=== PATIENT | male | born 1970 | race Caucasian/White ===

== ENCOUNTER → 2016-09-21 | Outpatient (CLI) | payer SELFPAY ==
[2016-01-02 19:11] VITALS: BP 150/85
--- NOTE | 2016-09-21 14:25 | CT ---
HISTORY: Headache Study: CT brain without contrast Comparison: None Technique: Multiple axial images of the brain were obtained from the skull base to the vertex without administr ation of IV contrast. Coronal and sagittal reformats were performed. Dose reduction procedures were used with MA/kv adjusted for body size. Findings: No acute intraparenchymal hemorrhage or mass can be identified. No extra-axial fluid collections ar e seen. No alteration in the attenuation of the brain parenchyma can be identified to suggest acute or subacute ischemic change. The ventricular system is symmetric and nondilated. The extracranial structures are grossly unremarkable. the calvarium is intact. IMPRESSION: No significant intracranial abnormality identified Reported By:
== END ==
LOC: RAD 13:45
PROVIDERS: ATTEND Neurological Surgery
DX: R41.81 Age-related cognitive decline (principal)
CPT/HCPCS: 70450

== ENCOUNTER 2020-06-14 09:28 | Inpatient (IN) ==
--- NOTE | 2020-06-14 09:38 | DR.GENAD ---
HPI Time Seen Time Seen by Provider: 06/14/20 09:37 PCP Primary Care Physician: HIMANSHU HPI Comment HPI Comment: PATIENT IS 49YR OLD MALE IN ER WITH GENERALIZED WEAKNESS, FREQUENT FALLS AND FATIGUE. DENIES NAUSEA, VOMITING OR DIARRHEA. HAVE SLIGHT CONGESTION, COUGH AND SOB. NO FEVER OR DYSURIA. GENERALIZED BODYACHES TODAY. Complaint/Symptoms Chief Complaint Doctors Comments: GENERALIZED WEAKNESS AND FREQUENT FALLS. Chief Complaint:: PT CC/O WEAKNESS, INCREASED FALLING, AND POSSIBLE DEHYDRATION. PT STATES HE HAS A HISTORY OF PARKINSONS AND HE HAS BEEN FALLING MORE [place] QUENTLY. COVID-19 Coronavirus risk:travel/contact w/high risk person: No Has patient experienced Coronavirus symptoms: No Nurses notes reviewed Nurses Notes Review: Yes Source History Provided: Patient and EMS Mode of Arrival Mode of Arrival: EMS Timing Onset of Chief Complaint: 06/13/20 Came on: Suddenly Duration Duration: Constant Duration: Days Modifying Factors Worsens:: EXERTIONS Improves:: REST. Associated Signs and Symptoms Associated Signs and Symptoms: WEAHNESS Other History Other History: HISTORY PARKINSONS DISEASE. PMH PMH Past Medical History: Yes Past Medical History: Hypertension Past Medical History Comment: PARKINSON'S Past Surgical History: Yes Surgical History: Tonsillectomy Family History History of Family Medical Conditions: Yes Family Medical History: Cancer and Hypertension Social History Does any household member use tobacco: No Alcohol Use: None Do you use any recreational Drugs:: No Lives With: Family Lives Where: Home Travel Risk Coronavirus risk:travel/contact w/high risk person: No Has patient experienced Coronavirus symptoms: No Infectious screening In the last 2 months have you had wt loss of >10#?: NO Have you had fever, night sweats or hemotysis?: No Have you traveled outside the country in the last 6 months?: No Isolation: Standard ROS Review of Systems Constitutional: See HPI, Weakness and Fatigue; negative Fever Eyes: No Symptoms Reported and See HPI ENTM: See HPI and Nose Congestion; negative Nose Discharge Respiratoy: No Symptoms Reported, See HPI, Moist Cough and Short of Breath (ON EXERTION.) Cardiovascular: No Symptoms Reported and See HPI; negative Chest Pain, Edema and Palpitations Gastrointestinal/Abdominal: See HPI and Other; negative Constipation, Diarrhea and Nausea Genitourinary: See HPI and Other (DECREASE URINATION.); negative Dysuria, Frequency and Hematuria Neurological: See HPI and Weakness; negative Headache and Dizziness Musculoskeletal: No Symptoms Reported and See HPI; negative Back Pain and Muscle Pain Integumentary: No Symptoms Reported and See HPI; negative Change in Color, Rash and Juandice Hematologic/Lymphatic: No Symptoms Reported and See HPI; negative Easy Bruising and Swollen Glands Endocrine: No Symptoms Reported and See HPI; negative Increased Thirst and Increased Urine (DECREASE URINATION.) Psychiatric: No Symptoms Reported and See HPI All Other Systems: Reviewed and Negative PE Vital Signs Vitals: Temperature 98.7 F Pulse Rate 87 Respiratory Rate 20 Blood Pressure 134/67 O2 Sat by Pulse Oximetry 97 General Limitations: Physical Limitation (PARKINSONS DISEASE.) General Appearance: Alert and In Distress (ON EXERTION.) Head Head Exam: Normal Inspection, Atraumatic and Normocephalic Eyes Eye exam: Normal Appearance and PERRL ENT ENT Exam: Normal Exam, Normal Oropharynx, Normal External Ear Exam and TM's Normal Bilaterally External Ear Exam: Normal External Inspection; negative Mastoid Tenderness TM/Canal Exam: Bilateral: Normal Nose Exam: Normal Nose Exam Mouth Exam: Normal Inspection; negative Lip Swelling and Tongue Swelling Throat Exam: Normal Inspection; negative Tonsillar Erythema, Tonsillomegaly and Tonsillar Exudate Neck Neck Exam: Normal Inspection and Trachea Midline; negative Tenderness and Lymphadenopathy Chest Chest Inspection: Normal Inspection and Symmetric Chest Wall Rise; negative Tenderness Respiratory Respiratory Exam: Normal Lung Sounds Bilat and Respiratory Distress; negative Accessory Muscle Use and Chest Wall Tenderness Respiratory Exam: Bilateral: Rhonchi and Lower: Rhonchi Cardiovascular Cardiovascular Exam: Regular Rate, Normal Rhythm and Normal Heart Sounds; negative Systolic Murmur and Diastolic Murmur Abdominal Exam Abdominal Exam: Normal Inspection, Normal Bowel Sounds and Soft; negative Tenderness Extremities Extremities Exam: Normal Inspection and Normal Capillary Refill; negative Tenderness and Calf Tenderness Back Back Exam: Normal Inspection; negative (R) CVA Tenderness and (L) CVA Tenderness Neurologic Neurological Exam: Alert, Oriented X3 and Other (TREMORS DUE TO PARKINSONS DISEASE.); negative Motor Sensory Deficit Psychiatric Psychiatric Exam: Normal Affect and Anxious Skin Skin Exam: Dry MDM Additional Information Additional Information Obtained From: Old Records and Family Differential Diagnosis Differential Diagnosis: GENERALIZED WEAKNESS, DEHYDRATION, PNEUMONIA, UTI, FREQUENT FALLS. COURSE Treatment Treatment: SEE ORDERS. Consultation Consultation Comments: DISCUSSED PATIENT WITH DR. CUELLAR. HE WILL ADMIT PATIENT. Education/Counseling Education/Counseling: Patient Educated On: Diagnosis ROR Labs Reviewed Laboratory Results Reviewed?: Yes Result Diagrams: 06/21/20 05:43 06/21/20 05:43 Laboratory: WBC 16.1 X10^3/uL (3.6-10.0) H 06/14/20 09:48 RBC 5.21 X10^6/uL (4.7-6.0) 06/14/20 09:48 Hgb 15.6 g/dL (13.5-18.0) 06/14/20 09:48 Hct 46.9 % (42.0-54.0) 06/14/20 09:48 MCV 90.1 fL (80.0-100.0) 06/14/20 09:48 MCH 30.0 pg (27.0-34.0) 06/14/20 09:48 MCHC 33.3 g/dL (33.0-35.0) 06/14/20 09:48 RDW 14.1 % (11.6-16.5) 06/14/20 09:48 Plt Count 249 X10^3/uL (150.0-450.0) 06/14/20 09:48 MPV 9.1 fL (7.4-11.0) 06/14/20 09:48 Neut % (Auto) 89.6 % (42.0-75.0) H 06/14/20 09:48 Lymph % (Auto) 4.7 % (21.0-51.0) L 06/14/20 09:48 Rich % (Auto) 5.4 % (0.0-13.0) 06/14/20 09:48 Eos % (Auto) 0.0 % (0.9-2.9) L 06/14/20 09:48 Baso % (Auto) 0.3 % (0.2-1.0) 06/14/20 09:48 Neut # (Auto) 14.4 x10^3/uL (2.2-4.8) H 06/14/20 09:48 Lymph # (Auto) 0.7 X10^3/uL (1.3-2.9) L 06/14/20 09:48 Rich # (Auto) 0.9 x10^3/uL (0.3-0.8) H 06/14/20 09:48 Eos # (Auto) 0.0 x10^3/uL (0.0-0.2) 06/14/20 09:48 Baso # (Auto) 0.1 X10^3/uL (0.0-0.1) 06/14/20 09:48 Absolute Nucleated RBC 0.1 /100WBC 06/14/20 09:48 Sodium 142 mmol/L (136-145) 06/14/20 09:48 Corrected Sodium TNP 06/14/20 09:48 Potassium 3.2 mmol/L (3.5-5.1) L 06/14/20 09:48 Chloride 105 mmol/L (98-107) 06/14/20 09:48 Carbon Dioxide 23.0 mmol/L (21-32) 06/14/20 09:48 BUN 23 mg/dL (7-18) H 06/14/20 09:48 Creatinine 0.87 mg/dL (0.70-1.30) 06/14/20 09:48 Est GFR (MDRD) Af Amer > 60 (>60) 06/14/20 09:48 Est GFR (MDRD) Non-Af > 60 (>60) 06/14/20 09:48 Glucose 98 mg/dL (65-99) 06/14/20 09:48 Calcium 9.2 mg/dL (8.5-10.1) 06/14/20 09:48 Corrected Calcium TNP 06/14/20 09:48 Total Bilirubin 1.00 mg/dL (0.2-1.0) 06/14/20 09:48 AST 64 Units/L (15-37) H 06/14/20 09:48 ALT 14 Units/L (12-78) 06/14/20 09:48 Alkaline Phosphatase 111 Units/L (46-116) 06/14/20 09:48 Creatine Kinase 2465 Units/L (39-308) H 06/14/20 09:48 CK-MB (CK-2) 10.4 ng/mL (0-4.0) H* 06/14/20 09:48 CK/CKMB % Calc 0.4 % (<4) 06/14/20 09:48 Troponin I 0.06 ng/mL (0-1.5) 06/14/20 09:48 B-Natriuretic Peptide 50.7 pg/mL (0-79) 06/14/20 09:48 Total Protein 7.3 g/dL (6.4-8.2) 06/14/20 09:48 Albumin 4.0 g/dL (3.4-5.0) 06/14/20 09:48 Globulin 3.3 g/dL (2.5-4.5) 06/14/20 09:48 Albumin/Globulin Ratio 1.2 Ratio (1.1-2.1) 06/14/20 09:48 Specimen Type Clean catch urine 06/14/20 12:16 Urine Color Brown (YELLOW) 06/14/20 12:16 Urine Appearance Clear (CLEAR) 06/14/20 12:16 Urine pH 6.0 (5.0 - 8.0) 06/14/20 12:16 Ur Specific [place] 1.025 (1.000-1.030) 06/14/20 12:16 Urine Protein 2+ (NEGATIVE) 06/14/20 12:16 Urine Glucose (UA) Negative (NEGATIVE) 06/14/20 12:16 Urine Ketones 4+ (NEGATIVE) 06/14/20 12:16 Urine Occult Blood 1+ (NEGATIVE) 06/14/20 12:16 Urine Nitrite Negative (NEGATIVE) 06/14/20 12:16 Urine Bilirubin 1+ (NEGATIVE) 06/14/20 12:16 Urine Urobilinogen 1+ (NORMAL) 06/14/20 12:16 Ur Leukocyte Esterase 1+ (NEGATIVE) 06/14/20 12:16 Urine RBC 10-20 /HPF (0-3) A 06/14/20 12:16 Urine WBC 3-5 /HPF (0-5) 06/14/20 12:16 Ur Squamous Epith Cells Few /HPF (NEGATIVE) 06/14/20 12:16 Amorphous Sediment 1+ /HPF (NEGATIVE) 06/14/20 12:16 Urine Bacteria Negative /HPF (NEGATIVE) 06/14/20 12:16 Hyaline Casts Few /LPF (NEGATIVE) 06/14/20 12:16 Urine Mucus Many /HPF (NEGATIVE) 06/14/20 12:16 Ur Culture Indicated? No/not indicated 06/14/20 12:16 SARS CoV-2 RNA Rapid MOISES Negative (NEGATIVE) 06/14/20 13:24 XRAY XRAY Interpreted by: Radiologist (REPORT NOTED AND DISCUSSED WITH PATIENT.) and Self EKG Rate: 86 [place]: Normal Rhythm: NSR Block: None Hypertrophy: LAE ST: Nonsp Opioid Opioid Risk Tool Age (Deng box if 16-45): No History of Preadolescent Sexual Abuse: No Total: 0 Total Score Risk Category: Low Risk Copyright: Liz predicting aberrant behaviors Diagnosis Discharge Problem: Generalized weakness, Acute dehydration Rhabdomyolysis Qualifiers: Rhabdomyolysis type: non-traumatic Qualified Code(s): M62.82 - Rhabdomyolysis Instructions Forms: Precautions for COVID19 Patient Portal Social Distancing
[2020-06-14 10:18] LABS: BASOPHILS # (AUTO) 0.1 X10^3/uL (0.0-0.1); BASOPHILS % (AUTO) 0.3 % (0.2-1.0); HEMATOCRIT 46.9 % (42.0-54.0); HEMOGLOBIN 15.6 g/dL (13.5-18.0); LYMPHOCYTES # (AUTO) 0.7 X10^3/uL (1.3-2.9); LYMPHOCYTES % (AUTO) 4.7 % (21.0-51.0); MEAN CORPUSCULAR HGB CONC 33.3 g/dL (33.0-35.0); MEAN CORPUSCULAR VOLUME 90.1 fL (80.0-100.0); MEAN PLATELET VOLUME 9.1 fL (7.4-11.0); MONOCYTES # (AUTO) 0.9 x10^3/uL (0.3-0.8); MONOCYTES % (AUTO) 5.4 % (0.0-13.0); NEUTROPHILS # (AUTO) 14.4 x10^3/uL (2.2-4.8); NEUTROPHILS % (AUTO) 89.6 % (42.0-75.0); PLATELET COUNT 249 X10^3/uL (150.0-450.0); RED BLOOD COUNT 5.21 X10^6/uL (4.7-6.0); RED CELL DISTRIBUTION WIDTH 14.1 % (11.6-16.5); WHITE BLOOD COUNT 16.1 X10^3/uL (3.6-10.0)
--- NOTE | 2020-06-14 10:20 | RAD ---
CHEST, 1 VIEWHistory: PT C/O WEAKNESS, INCREASED FALLING, AND POSSIBLE DEHYDRATION. PT STATES HE HAS A HISTORY OF PARKINSONS AND HE HAS BEEN FALLING MORE FREQUENTLY.Comparison: NoneFindings: Cardiac silhouette is normal in size. No acute alveolar infiltrate or significant effusion is identified. No pneumothorax.Impression: No acute cardiopulmonary abnormality.Electronically signed by: DIEUDONNE OCONNELL (Jun 14, 2020 10:18:00)
[2020-06-14 10:33] LABS: BLOOD UREA NITROGEN 23 mg/dL (7-18); CALCIUM 9.2 mg/dL (8.5-10.1); CHLORIDE 105 mmol/L (98-107); CREATININE 0.87 mg/dL (0.70-1.30); SODIUM 142 mmol/L (136-145); TROPONIN I 0.06 ng/mL (0-1.5); eGFR NON BLACK RACES > 60 (>60)
[2020-06-14 11:13] LABS: ALANINE AMINOTRANSFERASE 14 Units/L (12-78); ALKALINE PHOSPHATASE 111 Units/L (46-116); ASPARTATE AMINO TRANSFERASE 64 Units/L (15-37); TOTAL PROTEIN 7.3 g/dL (6.4-8.2)
[2020-06-14 11:17] LABS: CKMB % 0.4 % (<4); CREATINE KINASE MB 10.4 ng/mL (0-4.0)
[2020-06-14] MEDS ORDERED: NS 1000 ML 1,000 ML IV ONE (11:21)
[2020-06-14] MEDS ORDERED: NS 1000 ML 1,000 ML ONE ×2 (11:21→14:47)
[2020-06-14 11:37] LABS: CREATINE KINASE 2465 Units/L (39-308)
[2020-06-14 12:29] LABS: BILIRUBIN,URINE 1+ (NEGATIVE); BLOOD/HEMOGLOBIN,URINE 1+ (NEGATIVE); GLUCOSE, URINE NEGATIVE (NEGATIVE); KETONES,URINE 4+ (NEGATIVE); LEUKOCYTE ESTERASE ,URINE 1+ (NEGATIVE); NITRITES,URINE NEGATIVE (NEGATIVE); PROTEIN,URINE 2+ (NEGATIVE); UROBILINOGEN,URINE 1+ (NORMAL)
[2020-06-14 12:34] LABS: APPEARANCE,URINE CLEAR (CLEAR); COLOR,URINE BROWN (YELLOW)
[2020-06-14 12:43] LABS: BACTERIA,URINE NEGATIVE /HPF (NEGATIVE); SQUAMOUS EPITHELIAL CELL,UR FEW /HPF (NEGATIVE)
[2020-06-14 12:44] LABS: AMORPHOUS SEDIMENT,UR 1+ /HPF (NEGATIVE); HYALINE CASTS, URINE FEW /LPF (NEGATIVE); MUCUS,URINE MANY /HPF (NEGATIVE)
[2020-06-14] MEDS ORDERED: ROCEPHIN 1 GRAM IV PREMIX 1 G/50 ML IV.SOLN. IV ONE (14:47)
[2020-06-14] MEDS ORDERED: LIORESAL PO PRN (14:57)
[2020-06-14] MEDS: NS 1000 ML 1,000 ML IV SCH ×2 (14:58→22:00)
[2020-06-14] MEDS: ROCEPHIN VIAL 1 GRAM 1 G in NS 100 ML IV + SPIKE MINIBAG* 100 ML IV SCH (14:58)
[2020-06-14] MEDS ORDERED: MAGNESIUM SULFATE 1 GRAM/100 mL PREMIX 1 GM/100 ML BAG IV PRN (15:02)
[2020-06-14] MEDS ORDERED: K-RIDER 10 MEQ/NS 100 ML 10 MEQ/100 ML BAG IV PRN (15:02)
[2020-06-14] MEDS ORDERED: POTASSIUM CHLORIDE LIQ 20 MEQ UDC PO PRN (15:02)
[2020-06-14] MEDS ORDERED: KLOR-CON PO PRN (15:02)
[2020-06-14] MEDS ORDERED: POTASSIUM CHL 60 MEQ/NS 0.45% 500 ML IV PRN (15:02)
[2020-06-14] MEDS ORDERED: MICRO K EXTEN CAP 10 MEQ PO PRN (15:02)
[2020-06-14] MEDS ORDERED: POTASSIUM CHL 40 MEQ/NS 0.45% 500 ML IV PRN (15:02)
[2020-06-14] MEDS: SINEMET CR 50/200 MG PO SCH ×2 (15:42→21:00)
[2020-06-14 16:08] LABS: TROPONIN I 0.08 ng/mL (0-1.5)
[2020-06-14 16:12] LABS: CKMB % 0.5 % (<4); CREATINE KINASE MB 10.5 ng/mL (0-4.0)
[2020-06-14 16:38] VITALS: BMI 34.4
[2020-06-14] MEDS: K-DUR TAB 20 MEQ PO PRN (16:43)
[2020-06-14] MEDS: LOPRESSOR TAB 25 MG PO SCH (20:33)
[2020-06-15] LABS: TROPONIN I 0.06 ng/mL (0-1.5)
[2020-06-15 00:12] LABS: CKMB % 0.4 % (<4); CREATINE KINASE MB 5.5 ng/mL (0-4.0)
[2020-06-15] MEDS: SINEMET CR 50/200 MG PO SCH ×3 (06:08→21:07)
[2020-06-15 06:17] LABS: BASOPHILS # (AUTO) 0.1 X10^3/uL (0.0-0.1); BASOPHILS % (AUTO) 0.7 % (0.2-1.0); EOSINOPHILS % (AUTO) 0.1 % (0.9-2.9); HEMATOCRIT 41.7 % (42.0-54.0); HEMOGLOBIN 13.8 g/dL (13.5-18.0); LYMPHOCYTES # (AUTO) 1.7 X10^3/uL (1.3-2.9); LYMPHOCYTES % (AUTO) 15.3 % (21.0-51.0); MEAN CORPUSCULAR HEMOGLOBIN 30.2 pg (27.0-34.0); MEAN CORPUSCULAR HGB CONC 33.1 g/dL (33.0-35.0); MEAN CORPUSCULAR VOLUME 91.2 fL (80.0-100.0); MEAN PLATELET VOLUME 9.1 fL (7.4-11.0); MONOCYTES # (AUTO) 0.9 x10^3/uL (0.3-0.8); MONOCYTES % (AUTO) 8.1 % (0.0-13.0); NEUTROPHILS # (AUTO) 8.4 x10^3/uL (2.2-4.8); NEUTROPHILS % (AUTO) 75.8 % (42.0-75.0); PLATELET COUNT 222 X10^3/uL (150.0-450.0); RED BLOOD COUNT 4.57 X10^6/uL (4.7-6.0); RED CELL DISTRIBUTION WIDTH 14.1 % (11.6-16.5); WHITE BLOOD COUNT 11.1 X10^3/uL (3.6-10.0)
[2020-06-15 06:47] LABS: ALANINE AMINOTRANSFERASE 15 Units/L (12-78); ALBUMIN 3.2 g/dL (3.4-5.0); ALKALINE PHOSPHATASE 93 Units/L (46-116); ASPARTATE AMINO TRANSFERASE 51 Units/L (15-37); BLOOD UREA NITROGEN 17 mg/dL (7-18); CALCIUM 8.5 mg/dL (8.5-10.1); CARBON DIOXIDE 25.7 mmol/L (21-32); CHLORIDE 108 mmol/L (98-107); COR CA(FOR HYPOALB) 9.1 mg/dL (8.5-10.1); CREATININE 0.77 mg/dL (0.70-1.30); SODIUM 143 mmol/L (136-145); TOTAL PROTEIN 6.1 g/dL (6.4-8.2); eGFR NON BLACK RACES > 60 (>60)
[2020-06-15] MEDS: ROCEPHIN VIAL 1 GRAM 1 G in NS 100 ML IV + SPIKE MINIBAG* 100 ML IV SCH (09:00)
[2020-06-15] MEDS: LOPRESSOR TAB 25 MG PO SCH ×2 (09:01→21:07)
[2020-06-15] MEDS: MOBIC TAB 15 MG PO SCH (09:01)
[2020-06-15] MEDS ORDERED: PERCOCET TAB 5/325 MG PO PRN (09:30)
[2020-06-15 10:27] LABS: CREATINE KINASE MB 3.9 ng/mL (0-4.0); TROPONIN I 0.03 ng/mL (0-1.5)
[2020-06-15 10:30] LABS: TOTAL PSA 0.77 ng/mL (0.13-4.0)
[2020-06-15 10:41] LABS: CKMB % 0.3 % (<4)
[2020-06-15] MEDS: MILK OF MAGNESIA PO SCH ×3 (10:45→17:25)
--- NOTE | 2020-06-15 12:28 | CT ---
HISTORYDDD, R/O SPINE CANAL STENOSISSTUDYCT LUMBAR SPINE without IV contrastCOMPARISONCT 12/1959TECHNIQUEMultiple axial images of the lumbar spine were obtained from the thoracolumbar junction to the sacrum without the administration of IV contrast. Sagittal and coronal reformats were performed and reviewed. Dose reduction techniques including Automated Exposure Control (AEC) and adjustment of mA and kV were utilized.FINDINGSThere is no scoliosis. No spondylolisthesis or pars defect.No significant stenosis at L1-2. At L2-3 there is left central disc protrusion that is new since prior study. This causes prominent left lateral recess stenosis and possible compression of the left L3 nerve root. Mild thecal sac effacement is seen with no significant neural foraminal stenosis.Mild posterior osteophytes and posterior element hypertrophy cause mild central canal and neural foraminal narrowing at L3-4. Calcified right central disc bulge at L4-5 is similar to prior study. This causes mild thecal sac effacement and moderate right lateral recess stenosis, unchanged.No significant stenosis is seen at L5-S1.No compression fracture.IMPRESSIONLeft central disc protrusion at L2-3 is new since prior study. This may compress the left L3 nerve root in the left lateral recess. Mild thecal sac effacement is seen.Calcified right central disc bulge at L4-5 is unchanged from prior study. It causes mild thecal sac effacement and moderate right lateral recess stenosis.Electronically signed by: Cj Beltrán (Jun 15, 2020 12:26:21)
--- NOTE | 2020-06-15 12:33 | CT ---
HISTORYELEVATED D-DIMER (1.99)Dyspnea and shortness of breath].Study: CT angiogram of the chest with contrast, using the CT PE protocol. For this CT pulmonary embolism angiographic protocol, 3D reformats / maximum intensity projections (MIPs) of the pulmonary arterial circulation and pulmonary arteries was performed.Comparison: No recent priors.Technique: Multiple CT angiographic axial images of the chest were obtained from the thoracic inlet to the upper abdomen after the administration of IV contrast. For this CT pulmonary embolism angiographic protocol, 3D reformats / maximum intensity projections (MIPs) of the pulmonary arterial circulation and pulmonary arteries was performed.FINDINGS:The thoracic inlet is [unremarkable]. The mediastinum [does not demonstrate pathological lymphadenopathy]. There is no pericardial effusion observed. The thoracic aorta is normal in its contour without evidence for aneurysmal dilatation or acute dissection. The central pulmonary arterial system demonstrates several small intra-arterial filling defects are seen within the subsegmental pulmonary arterial branches to the left lower lobe, compatible with several small subsegmental left lower lobe pulmonary emboli. No central or saddle pulmonary embolism is seen, however. Lingular and right upper lobe subsegmental atelectasis is also noted. Evaluation of the lung parenchyma [fails to demonstrate focal consolidation or effusion]. [No pulmonary nodule or mass] is identified]. The bony thorax shows changes of thoracolumbar spinal DISH and spondylosis. The visualized portions of the upper abdomen [are without acute abnormality]. No other acute thoracic or cardiopulmonary abnormalities are identified on this chest CT exam.IMPRESSION:Several small intra-arterial filling defects are observed within the subsegmental pulmonary arterial branches within the left lower lobe, most compatible with several small subsegmental left lower lobe pulmonary emboli, given the medical history. No central or saddle pulmonary embolism is seen, however.Follow-up with bilateral lower extremity DVT sonography is also suggested.Lingular and right upper lobe subsegmental atelectasis is also noted.No other acute cardiopulmonary process is seen.Electronically signed by: SHILA WILBURN III (Jun 15, 2020 12:31:16)
[2020-06-15] MEDS ORDERED: HEPARIN SODIUM INJ 5000 UNITS IVP ONE (13:12)
[2020-06-15 13:21] LABS: ABG HCO3 27.1 mmol/L (22-26)
[2020-06-15 13:22] LABS: ABG ALLEN TEST POS
--- NOTE | 2020-06-15 13:38 | DR.H&P ---
H&P - History & Physical for Day of: H&P Date: 06/14/20 - Chief Complaint Chief Complaint: "legs gave out and i fell. I could not get up for 4 hours". weakness, recent falls - History of Present Illness History of Present Illness: PT IS 49 WM ER ADMISSION WIT BROUGHT IN PER EMS STATING HE FELL EARLIER BECAUSE "LEGS GAVE OUT" AND PT LAID IN FLOOR FOR 4 HRS THEN EMS DISPATCHED FOR 2ND TIME FOR SAME COMPLAINT. PT THEN TRANSPORTED TO ER. PT CO GUNDERSON THATS WORSE FOR LAST FEW DAYS TO WEEK AND DARK "TEA COLORED URINE" DENIES ANY CHEST PAIN OR GI ISSUES. PT DENIES HISTORY OF COVID, DM OR CAD. PT HAS PMH OF PARKINSON, C SPINE DDD, LSPINE DDD. PT ADMITTED FOR TREATMENT OF ACUTE ILLNESS - Past Medical History Past Medical History: Arthritis, Hypertension Additional Medical History: PARKINSON - Past Surgical History Surgical History: Ortho Surgery, Tonsillectomy, Other - Family History Family Medical History: Cancer, [place], Heart Failure, Hypertension - Social History Does patient currently use any type of tobacco product: No Have you used tobacco products in the last 12 months: No Type of Tobacco Use: None Does any household member use tobacco: No Alcohol Use: None Drug Use: None - Medications Home Medications: No Known Drug Allergies Allergy (Verified 06/14/20 09:53) CONTINUE taking the following medications baclofen 5 - 10 mg PO TID PRN 06/14/20 [History] carbidopa-levodopa 1 tab PO .5XD 06/14/20 [History] carbidopa-levodopa 1 tab PO TID 06/14/20 [History] meloxicam 15 mg PO DAILY 06/14/20 [History] metoprolol tartrate 25 mg PO BID 06/14/20 [History] - Review of Systems Constitutional: Weakness ENT: No Symptoms Reported Respiratory: SOB with Excertion Cardiovascular: Edema. denies: Chest Pain Gastrointestinal: Constipation Genitourinary: No Symptoms Reported Musculoskeletal: Back Pain Skin: No Symptoms Reported Neurological: Weakness - Physical Exam Vital Signs: Temperature 97.5 F Pulse Rate [Left Brachial] 64 Pulse Rate 87 Respiratory Rate 24 Blood Pressure [Right Arm] 193/91 Blood Pressure [Left Arm] 138/68 Blood Pressure 127/70 O2 Sat by Pulse Oximetry 96 Oriented: Normal Eyes: Normal Ear: Normal Nose: Normal Throat: Normal Respiratory: RLL Diminished, LLL Diminished Cardiovascular: Normal, Edema : Normal Auscultation: Bowel Sounds: Normal Palpation: Normal Tenderness: Normal Skin: Decreased Turgur Musculoskeletal: Back:Thoracic, Back:Lumbar, Motor Deficit Mood Description: Calm Speech Pattern: Clear, Appropriate - Assessment/Plan (1) Rhabdomyolysis Qualifiers: Rhabdomyolysis type: non-traumatic Qualified Code(s): M62.82 - Rhabdomyolysis Status: Acute Plan: ADMIT, IV HYDRATION. STRICT I&OS, CE AND EKG. VERIFY HOME MEDICATION. TELEMTRY, BP CONTROL. AM LABS (2) Parkinson disease Status: Acute (3) Acute dehydration Status: Acute - Allergies Allergies/Adverse Reactions: Allergies Allergy/AdvReac Type Severity Reaction Status Date / Time No Known Drug Allergies Allergy Verified 06/14/20 09:53
[2020-06-15] MEDS: NS 1000 ML 1,000 ML IV SCH ×2 (14:00→18:31)
--- NOTE | 2020-06-15 14:16 | VAS ---
HISTORYPOSITIVE PESTUDYLOWER EXT VENOUS, BILATERALCOMPARISONNoneTECHNIQUEMultiple adam scale and color flow Doppler images of the deep venous system were obtained of the right and left lower extremity.FINDINGSThe deep venous system of the right and left lower extremities were evaluated from the level of the common femoral vein through the popliteal vein. Normal color flow and augmentation can be observed in the left lower extremity.. In addition, normal compression is seen throughout the left deep venous system. The proximal greater saphenous vein is also patent on the left..Normal flow is seen in the right common femoral and proximal greater saphenous vein proximal mid and distal superficial femoral vein. There was however echogenic material with incomplete compression of the right popliteal vein and anterior tibial veinIMPRESSIONNegative for DVT in the left lower extremity but the exam was positive for partial thrombosis i.e. partially occlusive thrombus in the right distal popliteal and anterior tibial veins..Electronically signed by: REBEKAH SILVA (Jun 15, 2020 14:14:04)
[2020-06-15 14:37] LABS: ERYTHROCYTE SEDIMENTATION RATE 7 MM/HOUR (0-15)
[2020-06-15] MEDS: HEPARIN SODIUM IN D5W 25,000 UNITS/500 ML BAG IV PRN (15:15)
[2020-06-15 16:09] LABS: CREATINE KINASE MB 2.9 ng/mL (0-4.0); TROPONIN I 0.04 ng/mL (0-1.5)
[2020-06-15 16:24] LABS: CKMB % 0.2 % (<4)
[2020-06-15] MEDS: PERCOCET TAB 5/325 MG PO PRN (20:22)
[2020-06-15] MEDS: COLACE CAP 100 MG PO SCH (21:07)
[2020-06-15 21:33] LABS: CKMB % 0.2 % (<4); CREATINE KINASE MB 2.2 ng/mL (0-4.0); TROPONIN I 0.04 ng/mL (0-1.5)
[2020-06-15] MEDS ORDERED: HEPARIN SODIUM INJ 5000 UNITS ONE (21:39)
[2020-06-16] MEDS: NS 1000 ML 1,000 ML IV SCH ×4 (02:15→20:06)
[2020-06-16 05:11] LABS: BASOPHILS # (AUTO) 0.1 X10^3/uL (0.0-0.1); EOSINOPHILS % (AUTO) 0.6 % (0.9-2.9); HEMATOCRIT 41.6 % (42.0-54.0); HEMOGLOBIN 13.4 g/dL (13.5-18.0); LYMPHOCYTES # (AUTO) 1.4 X10^3/uL (1.3-2.9); LYMPHOCYTES % (AUTO) 15.9 % (21.0-51.0); MEAN CORPUSCULAR HEMOGLOBIN 29.4 pg (27.0-34.0); MEAN CORPUSCULAR HGB CONC 32.2 g/dL (33.0-35.0); MEAN CORPUSCULAR VOLUME 91.3 fL (80.0-100.0); MEAN PLATELET VOLUME 9.6 fL (7.4-11.0); MONOCYTES # (AUTO) 0.8 x10^3/uL (0.3-0.8); MONOCYTES % (AUTO) 8.7 % (0.0-13.0); NEUTROPHILS # (AUTO) 6.4 x10^3/uL (2.2-4.8); NEUTROPHILS % (AUTO) 73.8 % (42.0-75.0); PLATELET COUNT 201 X10^3/uL (150.0-450.0); RED BLOOD COUNT 4.56 X10^6/uL (4.7-6.0); RED CELL DISTRIBUTION WIDTH 14.3 % (11.6-16.5); WHITE BLOOD COUNT 8.7 X10^3/uL (3.6-10.0)
[2020-06-16] MEDS: SINEMET CR 50/200 MG PO SCH ×3 (05:21→21:05)
[2020-06-16 05:28] LABS: ALANINE AMINOTRANSFERASE 13 Units/L (12-78); ALBUMIN 2.9 g/dL (3.4-5.0); ALKALINE PHOSPHATASE 93 Units/L (46-116); ASPARTATE AMINO TRANSFERASE 39 Units/L (15-37); BLOOD UREA NITROGEN 13 mg/dL (7-18); CALCIUM 8.3 mg/dL (8.5-10.1); CARBON DIOXIDE 27.1 mmol/L (21-32); CHLORIDE 106 mmol/L (98-107); COR CA(FOR HYPOALB) 9.2 mg/dL (8.5-10.1); CREATININE 0.65 mg/dL (0.70-1.30); SODIUM 141 mmol/L (136-145); TOTAL PROTEIN 5.8 g/dL (6.4-8.2); eGFR NON BLACK RACES > 60 (>60)
[2020-06-16] MEDS: MOBIC TAB 15 MG PO SCH (08:39)
[2020-06-16] MEDS: LOPRESSOR TAB 25 MG PO SCH ×2 (08:39→20:06)
[2020-06-16] MEDS: ROCEPHIN VIAL 1 GRAM 1 G in NS 100 ML IV + SPIKE MINIBAG* 100 ML IV SCH (08:39)
[2020-06-16] MEDS ORDERED: HEPARIN SODIUM INJ 5000 UNITS IVP ONE (12:09)
[2020-06-16] MEDS: PERCOCET TAB 5/325 MG PO PRN (18:12)
[2020-06-16] MEDS: COLACE CAP 100 MG PO SCH (20:06)
[2020-06-16] MEDS: K-DUR TAB 20 MEQ PO PRN (20:07)
[2020-06-17] MEDS: HEPARIN SODIUM IN D5W 25,000 UNITS/500 ML BAG IV PRN (00:20)
[2020-06-17] MEDS: NS 1000 ML 1,000 ML IV SCH ×3 (03:42→18:02)
[2020-06-17] MEDS: SINEMET CR 50/200 MG PO SCH ×4 (05:08→20:38)
[2020-06-17] MEDS: PERCOCET TAB 5/325 MG PO PRN ×3 (05:08→20:39)
[2020-06-17 06:21] LABS: BASOPHILS # (AUTO) 0.1 X10^3/uL (0.0-0.1); BASOPHILS % (AUTO) 1.2 % (0.2-1.0); EOSINOPHILS # (AUTO) 0.1 x10^3/uL (0.0-0.2); EOSINOPHILS % (AUTO) 1.7 % (0.9-2.9); HEMATOCRIT 40.8 % (42.0-54.0); HEMOGLOBIN 13.8 g/dL (13.5-18.0); LYMPHOCYTES # (AUTO) 1.4 X10^3/uL (1.3-2.9); MEAN CORPUSCULAR HEMOGLOBIN 30.7 pg (27.0-34.0); MEAN CORPUSCULAR HGB CONC 33.9 g/dL (33.0-35.0); MEAN CORPUSCULAR VOLUME 90.5 fL (80.0-100.0); MEAN PLATELET VOLUME 9.6 fL (7.4-11.0); MONOCYTES # (AUTO) 0.7 x10^3/uL (0.3-0.8); MONOCYTES % (AUTO) 8.1 % (0.0-13.0); NEUTROPHILS # (AUTO) 5.8 x10^3/uL (2.2-4.8); PLATELET COUNT 213 X10^3/uL (150.0-450.0); RED BLOOD COUNT 4.51 X10^6/uL (4.7-6.0); RED CELL DISTRIBUTION WIDTH 14.5 % (11.6-16.5); WHITE BLOOD COUNT 8.1 X10^3/uL (3.6-10.0)
[2020-06-17 06:32] LABS: ALANINE AMINOTRANSFERASE 15 Units/L (12-78); ALBUMIN 3.1 g/dL (3.4-5.0); ALKALINE PHOSPHATASE 102 Units/L (46-116); ASPARTATE AMINO TRANSFERASE 30 Units/L (15-37); BLOOD UREA NITROGEN 11 mg/dL (7-18); CALCIUM 8.6 mg/dL (8.5-10.1); CARBON DIOXIDE 25.9 mmol/L (21-32); CHLORIDE 104 mmol/L (98-107); COR CA(FOR HYPOALB) 9.3 mg/dL (8.5-10.1); CREATININE 0.65 mg/dL (0.70-1.30); SODIUM 137 mmol/L (136-145); eGFR NON BLACK RACES > 60 (>60)
[2020-06-17 09:04] LABS: CKMB % 0.5 % (<4); CREATINE KINASE 270 Units/L (39-308); CREATINE KINASE MB 1.3 ng/mL (0-4.0); TROPONIN I < 0.02 ng/mL (0-1.5)
[2020-06-17] MEDS: ELIQUIS PO SCH ×2 (09:39→20:38)
[2020-06-17] MEDS: LOPRESSOR TAB 25 MG PO SCH (09:40)
[2020-06-17] MEDS: ROCEPHIN VIAL 1 GRAM 1 G in NS 100 ML IV + SPIKE MINIBAG* 100 ML IV SCH (09:41)
[2020-06-17] MEDS: MOBIC TAB 15 MG PO SCH (09:41)
[2020-06-17 09:50] LABS: ABG ALLEN TEST POS; ABG BASE EXCESS 1.6 mmol/L (-2.0-2.0); ABG HCO3 24.4 mmol/L (22-26)
[2020-06-17] MEDS: SOLU-Medrol 40 MG VIAL IVP SCH ×2 (14:17→21:34)
[2020-06-17] MEDS: COLACE CAP 100 MG PO SCH (20:38)
[2020-06-18] MEDS: NS 1000 ML 1,000 ML IV SCH ×4 (00:19→20:31)
[2020-06-18] MEDS: SINEMET CR 50/200 MG PO SCH ×2 (05:07→09:47)
[2020-06-18] MEDS: SOLU-Medrol 40 MG VIAL IVP SCH (05:07)
[2020-06-18 06:15] LABS: BASOPHILS % (AUTO) 0.6 % (0.2-1.0); EOSINOPHILS % (AUTO) 0.6 % (0.9-2.9); HEMATOCRIT 44.2 % (42.0-54.0); HEMOGLOBIN 14.7 g/dL (13.5-18.0); LYMPHOCYTES # (AUTO) 0.9 X10^3/uL (1.3-2.9); LYMPHOCYTES % (AUTO) 11.1 % (21.0-51.0); MEAN CORPUSCULAR HEMOGLOBIN 30.2 pg (27.0-34.0); MEAN CORPUSCULAR HGB CONC 33.2 g/dL (33.0-35.0); MEAN CORPUSCULAR VOLUME 90.9 fL (80.0-100.0); MEAN PLATELET VOLUME 9.3 fL (7.4-11.0); MONOCYTES # (AUTO) 0.2 x10^3/uL (0.3-0.8); MONOCYTES % (AUTO) 2.3 % (0.0-13.0); NEUTROPHILS # (AUTO) 6.6 x10^3/uL (2.2-4.8); NEUTROPHILS % (AUTO) 85.4 % (42.0-75.0); PLATELET COUNT 244 X10^3/uL (150.0-450.0); RED BLOOD COUNT 4.86 X10^6/uL (4.7-6.0); RED CELL DISTRIBUTION WIDTH 13.9 % (11.6-16.5); WHITE BLOOD COUNT 7.7 X10^3/uL (3.6-10.0)
[2020-06-18 06:25] LABS: ALANINE AMINOTRANSFERASE 14 Units/L (12-78); ALBUMIN 3.3 g/dL (3.4-5.0); ALKALINE PHOSPHATASE 112 Units/L (46-116); ASPARTATE AMINO TRANSFERASE 19 Units/L (15-37); BLOOD UREA NITROGEN 10 mg/dL (7-18); CALCIUM 9.1 mg/dL (8.5-10.1); CARBON DIOXIDE 25.5 mmol/L (21-32); CHLORIDE 102 mmol/L (98-107); COR CA(FOR HYPOALB) 9.7 mg/dL (8.5-10.1); COR NA(FOR HYPERGLY) 135 mmol/L (136-145); CREATININE 0.66 mg/dL (0.70-1.30); SODIUM 135 mmol/L (136-145); TOTAL PROTEIN 6.6 g/dL (6.4-8.2); eGFR NON BLACK RACES > 60 (>60)
[2020-06-18] MEDS: ROCEPHIN VIAL 1 GRAM 1 G in NS 100 ML IV + SPIKE MINIBAG* 100 ML IV SCH (09:46)
[2020-06-18] MEDS: MOBIC TAB 15 MG PO SCH (09:47)
[2020-06-18] MEDS: ELIQUIS PO SCH ×2 (09:47→20:34)
[2020-06-18] MEDS: PERCOCET TAB 5/325 MG PO PRN (11:34)
--- NOTE | 2020-06-18 11:50 | PCM.PROG ---
Progress Note Progress Note for Day of Date of Exam: 06/18/20 Subjective Subjective: Patient seen at bedside, no events overnight. Patient states his pain and stiffness has not been controlled. He states he sees Dr. Carlton for Parkinson's' and he was recently changed to a different dose of Sinemet which has not been working for him. He states he was taking 25/250 mg 5 times a day and that worked better. He is being treated for Right LE DVT and PE with Eliquis. Denies bleeding. He reports eating better. He did work with PT this AM and states he feels tired. He is currently on room air. Labs: Hgb 14.7 Na: 135 K: 3.9 BUN/Cr: 10/0.66 CK 270 Urine and Blood Cx neg Plan: continue PT/OT, patient likely needs rehab placement. Will switch to Sinemet 25/250 x5/daily. Continue pain control and muscle relaxer. Will DC Rocephin. Wean O2 as tolerated. Continue Eliquis. Monitor AM labs. Past Medical Family Social History Past Med/Fam/Surg Hx: No changes since H&P Allergies: Allergies No Known Drug Allergies Allergy (Verified 06/14/20 09:53) Review of Systems ROS: No change since H&P Vital Signs and I&O's Vital Signs: Temperature 98.6 F Pulse Rate [Left Brachial] 82 Pulse Rate 87 Respiratory Rate 20 Blood Pressure [Right Arm] 142/84 Blood Pressure [Left Arm] 138/68 Blood Pressure 127/70 O2 Sat by Pulse Oximetry 96 Intake and Output: Intake & Output 06/15/20 06/16/20 06/17/20 06/18/20 23:59 23:59 23:59 23:59 Intake Total 3570 / 3570 2395 / 2395 2656 / 2656 484 / 484 Output Total 550 / 550 1225 / 1225 1325 / 1325 Balance 3020 / 3020 1170 / 1170 1331 / 1331 484 / 484 Physical Exam Oriented: Normal Eyes: Normal Ear: Normal Nose: Normal Throat: Normal Respiratory: Generalized and Diminished Cardiovascular: Normal and Edema Auscultation: Bowel Sounds: Normal Tenderness: Normal Skin: Decreased Turgur Musculoskeletal: Back:Thoracic, Back:Lumbar and Motor Deficit Mood Description: Calm Speech Pattern: Clear and Appropriate Laboratory and Diagnostics Result Diagrams: 06/18/20 05:40 06/18/20 05:40 Labs: 06/15/20 22:17 Urine,Clean Catch Urine Culture - Final 06/15/20 13:28 Blood Blood Culture - Preliminary 06/15/20 13:05 Blood Blood Culture - Preliminary Laboratory WBC 7.7 X10^3/uL (3.6-10.0) 06/18/20 05:40 RBC 4.86 X10^6/uL (4.7-6.0) 06/18/20 05:40 Hgb 14.7 g/dL (13.5-18.0) 06/18/20 05:40 Hct 44.2 % (42.0-54.0) 06/18/20 05:40 MCV 90.9 fL (80.0-100.0) 06/18/20 05:40 MCH 30.2 pg (27.0-34.0) 06/18/20 05:40 MCHC 33.2 g/dL (33.0-35.0) 06/18/20 05:40 RDW 13.9 % (11.6-16.5) 06/18/20 05:40 Plt Count 244 X10^3/uL (150.0-450.0) 06/18/20 05:40 MPV 9.3 fL (7.4-11.0) 06/18/20 05:40 Neut % (Auto) 85.4 % (42.0-75.0) H 06/18/20 05:40 Lymph % (Auto) 11.1 % (21.0-51.0) L 06/18/20 05:40 Randall % (Auto) 2.3 % (0.0-13.0) 06/18/20 05:40 Eos % (Auto) 0.6 % (0.9-2.9) L 06/18/20 05:40 Baso % (Auto) 0.6 % (0.2-1.0) 06/18/20 05:40 Neut # (Auto) 6.6 x10^3/uL (2.2-4.8) H 06/18/20 05:40 Lymph # (Auto) 0.9 X10^3/uL (1.3-2.9) L 06/18/20 05:40 Randall # (Auto) 0.2 x10^3/uL (0.3-0.8) L 06/18/20 05:40 Eos # (Auto) 0.0 x10^3/uL (0.0-0.2) 06/18/20 05:40 Baso # (Auto) 0.0 X10^3/uL (0.0-0.1) 06/18/20 05:40 Absolute Nucleated RBC 0.1 /100WBC 06/18/20 05:40 ESR 7 MM/HOUR (0-15) 06/15/20 13:28 PT 14.1 SECONDS (11.8-14.3) 06/15/20 05:37 INR Target Range - 06/15/20 05:37 INR 1.12 (0.8-1.3) 06/15/20 05:37 APTT 33.7 SECONDS (22.9-36.5) 06/17/20 12:28 PTT Comment - 06/17/20 12:28 D-Dimer 1.99 ug/ml (0.0-0.57) H* 06/15/20 05:37 Sample Site Rrad 06/17/20 09:43 ABG pH 7.490 (7.35-7.45) H 06/17/20 09:43 ABG pCO2 32.0 mmHg (35.0-45.0) L 06/17/20 09:43 ABG pO2 99.0 mmHg (80.0-100.0) 06/17/20 09:43 ABG HCO3 24.4 mmol/L (22-26) 06/17/20 09:43 ABG O2 Saturation 98.0 % (90-100) 06/17/20 09:43 ABG Base Excess 1.6 mmol/L (-2.0-2.0) 06/17/20 09:43 Viecnte Test Pos 06/17/20 09:43 A-a Gradient 11.0 mmHg 06/17/20 09:43 FiO2 21.0 06/17/20 09:43 Blood Gas Comments Pt farnaz well elj 06/17/20 09:43 Sodium 135 mmol/L (136-145) L 06/18/20 05:40 Corrected Sodium 135 mmol/L (136-145) L 06/18/20 05:40 Potassium 3.9 mmol/L (3.5-5.1) 06/18/20 05:40 Chloride 102 mmol/L (98-107) 06/18/20 05:40 Carbon Dioxide 25.5 mmol/L (21-32) 06/18/20 05:40 BUN 10 mg/dL (7-18) 06/18/20 05:40 Creatinine 0.66 mg/dL (0.70-1.30) L 06/18/20 05:40 Est GFR (MDRD) Af Amer > 60 (>60) 06/18/20 05:40 Est GFR (MDRD) Non-Af > 60 (>60) 06/18/20 05:40 Glucose 111 mg/dL (65-99) H 06/18/20 05:40 Calcium 9.1 mg/dL (8.5-10.1) 06/18/20 05:40 Corrected Calcium 9.7 mg/dL (8.5-10.1) 06/18/20 05:40 Magnesium 2.1 mg/dL (1.7-2.9) 06/16/20 21:38 Total Bilirubin 0.80 mg/dL (0.2-1.0) 06/18/20 05:40 AST 19 Units/L (15-37) 06/18/20 05:40 ALT 14 Units/L (12-78) 06/18/20 05:40 Alkaline Phosphatase 112 Units/L (46-116) 06/18/20 05:40 Creatine Kinase 270 Units/L (39-308) 06/17/20 05:45 CK-MB (CK-2) 1.3 ng/mL (0-4.0) 06/17/20 05:45 CK/CKMB % Calc 0.5 % (<4) 06/17/20 05:45 Troponin I < 0.02 ng/mL (0-1.5) 06/17/20 05:45 C-Reactive Protein 28.70 mg/L (0-3.0) H 06/15/20 13:28 B-Natriuretic Peptide 50.7 pg/mL (0-79) 06/14/20 09:48 Total Protein 6.6 g/dL (6.4-8.2) 06/18/20 05:40 Albumin 3.3 g/dL (3.4-5.0) L 06/18/20 05:40 Globulin 3.3 g/dL (2.5-4.5) 06/18/20 05:40 Albumin/Globulin Ratio 1.0 Ratio (1.1-2.1) L 06/18/20 05:40 Total PSA 0.77 ng/mL (0.13-4.0) 06/15/20 09:40 Homocysteine 134 umol/L (0-15) H 06/15/20 13:28 Specimen Type Clean catch urine 06/14/20 12:16 Urine Color Brown (YELLOW) 06/14/20 12:16 Urine Appearance Clear (CLEAR) 06/14/20 12:16 Urine pH 6.0 (5.0 - 8.0) 06/14/20 12:16 Ur Specific [place] 1.025 (1.000-1.030) 06/14/20 12:16 Urine Protein 2+ (NEGATIVE) 06/14/20 12:16 Urine Glucose (UA) Negative (NEGATIVE) 06/14/20 12:16 Urine Ketones 4+ (NEGATIVE) 06/14/20 12:16 Urine Occult Blood 1+ (NEGATIVE) 06/14/20 12:16 Urine Nitrite Negative (NEGATIVE) 06/14/20 12:16 Urine Bilirubin 1+ (NEGATIVE) 06/14/20 12:16 Urine Urobilinogen 1+ (NORMAL) 06/14/20 12:16 Ur Leukocyte Esterase 1+ (NEGATIVE) 06/14/20 12:16 Urine RBC 10-20 /HPF (0-3) A 06/14/20 12:16 Urine WBC 3-5 /HPF (0-5) 06/14/20 12:16 Ur Squamous Epith Cells Few /HPF (NEGATIVE) 06/14/20 12:16 Amorphous Sediment 1+ /HPF (NEGATIVE) 06/14/20 12:16 Urine Bacteria Negative /HPF (NEGATIVE) 06/14/20 12:16 Hyaline Casts Few /LPF (NEGATIVE) 06/14/20 12:16 Urine Mucus Many /HPF (NEGATIVE) 06/14/20 12:16 Ur Culture Indicated? No/not indicated 06/14/20 12:16 Stool Description 50 g. brown/formed 06/16/20 03:20 Stl Occult Blood (IFOB) Negative (NEGATIVE) 03/04/21 03:20 SARS CoV-2 RNA Rapid MOISES Negative (NEGATIVE) 06/14/20 13:24 Plan (1) Rhabdomyolysis: Status: Acute Qualifiers: Rhabdomyolysis type: non-traumatic Qualified Code(s): M62.82 - Rhabdomyolysis Plan: ADMIT, IV HYDRATION STRICT I&OS, CE AND EKG VERIFY HOME MEDICATION TELEMTRY, BP CONTROL AM LABS (2) Acute dehydration: Status: Acute (3) Lower extremity deep venous thrombosis: Status: Acute Qualifiers: Affected thrombotic vein of extremity: popliteal Chronicity: acute Laterality: right Qualified Code(s): I82.431 - Acute embolism and thrombosis of right popliteal vein (4) Pulmonary embolism: Status: Acute Qualifiers: Acute cor pulmonale presence: unspecified Chronicity: acute Pulmonary embolism type: unspecified Qualified Code(s): I26.99 - Other pulmonary embolism without acute cor pulmonale (5) Osteoarthritis: Status: Acute Qualifiers: Osteoarthritis location: unspecified site Osteoarthritis type: unspecified Qualified Code(s): M19.90 - Unspecified osteoarthritis, unspecified site (6) Parkinson disease: Status: Acute
[2020-06-18] MEDS: SINEMET (PLAIN) 25/250 MG PO SCH ×3 (14:12→20:34)
[2020-06-18] MEDS: COLACE CAP 100 MG PO SCH (20:34)
[2020-06-19] MEDS ORDERED: LOPRESSOR INJ 5 MG AMP IVP ONE (04:19)
[2020-06-19] MEDS ORDERED: LOPRESSOR INJ 5 MG AMP ONE (04:25)
[2020-06-19] MEDS: SINEMET (PLAIN) 25/250 MG PO SCH ×5 (04:34→20:23)
[2020-06-19] MEDS: NS 1000 ML 1,000 ML IV SCH ×3 (04:34→18:34)
[2020-06-19 06:38] LABS: BASOPHILS % (AUTO) 0.3 % (0.2-1.0); EOSINOPHILS % (AUTO) 0.2 % (0.9-2.9); HEMOGLOBIN 13.9 g/dL (13.5-18.0); LYMPHOCYTES # (AUTO) 1.5 X10^3/uL (1.3-2.9); LYMPHOCYTES % (AUTO) 12.6 % (21.0-51.0); MEAN CORPUSCULAR HEMOGLOBIN 29.4 pg (27.0-34.0); MEAN CORPUSCULAR HGB CONC 32.2 g/dL (33.0-35.0); MEAN CORPUSCULAR VOLUME 91.3 fL (80.0-100.0); MEAN PLATELET VOLUME 9.4 fL (7.4-11.0); MONOCYTES % (AUTO) 8.4 % (0.0-13.0); NEUTROPHILS # (AUTO) 9.2 x10^3/uL (2.2-4.8); NEUTROPHILS % (AUTO) 78.5 % (42.0-75.0); PLATELET COUNT 247 X10^3/uL (150.0-450.0); RED BLOOD COUNT 4.71 X10^6/uL (4.7-6.0); RED CELL DISTRIBUTION WIDTH 14.4 % (11.6-16.5); WHITE BLOOD COUNT 11.7 X10^3/uL (3.6-10.0)
[2020-06-19 06:53] LABS: BLOOD UREA NITROGEN 15 mg/dL (7-18); CALCIUM 8.5 mg/dL (8.5-10.1); CARBON DIOXIDE 25.5 mmol/L (21-32); CHLORIDE 104 mmol/L (98-107); CREATININE 0.64 mg/dL (0.70-1.30); SODIUM 138 mmol/L (136-145); eGFR NON BLACK RACES > 60 (>60)
[2020-06-19] MEDS: MOBIC TAB 15 MG PO SCH (08:20)
[2020-06-19] MEDS: ELIQUIS PO SCH ×2 (08:20→20:23)
[2020-06-19 10:26] LABS: ANTI-NUCLEAR ANTIBODY TEST None Detected (None Detected); PROTEIN C ACTIVITY 115 % (83-168)
[2020-06-19] MEDS: K-DUR TAB 20 MEQ PO PRN ×2 (10:57→13:54)
[2020-06-19] MEDS: LOPRESSOR TAB 25 MG PO SCH ×2 (10:58→20:35)
--- NOTE | 2020-06-19 10:59 | PCM.PROG ---
Progress Note Progress Note for Day of Date of Exam: 06/19/20 Subjective Subjective: Patient seen at bedside, early this morning, he was noted have elevated HR of 160s. He was found to be in atrial fibrillation. patient was asymptomatic and sleeping at the time. He has no hx of afib. He states his mother has afib and he was evaluated for it in the past. He was given metoprolol 5 mg IV and his HR has been in the 90s. He denies Sx. He is on room air with sats above 92%. He states the changes made yesterday to his Parkinson medicines has helped his pain and stiffness. He did notice some blood in his urine earlier this morning. Labs: Hgb 13.9 Na: 138 K: 3.1 BUN/Cr: 10/0.6 Mg 2.1 EKG: atrial fibrillation Urine and Blood Cx neg Plan: will repeat EKG this morning, continue Eliquis. Check UA for hematuria. Add metoprolol 12.5 mg BID. Replace K as per protocol. Continue PT/OT. Patient likely needs rehab placement. Continue Sinemet 25/250 x5/daily. Continue pain control and muscle relaxer. Monitor AM labs. Past Medical Family Social History Past Med/Fam/Surg Hx: No changes since H&P Allergies: Allergies No Known Drug Allergies Allergy (Verified 06/14/20 09:53) Review of Systems ROS: No change since H&P Vital Signs and I&O's Vital Signs: Temperature 98.1 F Pulse Rate [Left Brachial] 93 Pulse Rate 87 Respiratory Rate 18 Blood Pressure [Right Arm] 128/66 Blood Pressure [Left Arm] 125/79 Blood Pressure 125/79 O2 Sat by Pulse Oximetry 96 Intake and Output: Intake & Output 06/16/20 06/17/20 06/18/20 06/19/20 23:59 23:59 23:59 23:59 Intake Total 2395 / 2395 2656 / 2656 3322 / 3322 613 / 613 Output Total 1225 / 1225 1325 / 1325 275 / 275 Balance 1170 / 1170 1331 / 1331 3047 / 3047 613 / 613 Physical Exam Oriented: Normal Eyes: Normal Ear: Normal Nose: Normal Throat: Normal Respiratory: Generalized and Diminished Cardiovascular: Normal and Edema Auscultation: Bowel Sounds: Normal Tenderness: Normal Skin: Normal Musculoskeletal: Back:Thoracic, Back:Lumbar and Motor Deficit Mood Description: Calm Speech Pattern: Clear and Appropriate Laboratory and Diagnostics Result Diagrams: 06/19/20 05:34 06/19/20 05:34 Labs: 06/15/20 22:17 Urine,Clean Catch Urine Culture - Final 06/15/20 13:28 Blood Blood Culture - Preliminary 06/15/20 13:05 Blood Blood Culture - Preliminary Laboratory WBC 11.7 X10^3/uL (3.6-10.0) H 06/19/20 05:34 RBC 4.71 X10^6/uL (4.7-6.0) 06/19/20 05:34 Hgb 13.9 g/dL (13.5-18.0) 06/19/20 05:34 Hct 43.0 % (42.0-54.0) 06/19/20 05:34 MCV 91.3 fL (80.0-100.0) 06/19/20 05:34 MCH 29.4 pg (27.0-34.0) 06/19/20 05:34 MCHC 32.2 g/dL (33.0-35.0) L 06/19/20 05:34 RDW 14.4 % (11.6-16.5) 06/19/20 05:34 Plt Count 247 X10^3/uL (150.0-450.0) 06/19/20 05:34 MPV 9.4 fL (7.4-11.0) 06/19/20 05:34 Neut % (Auto) 78.5 % (42.0-75.0) H 06/19/20 05:34 Lymph % (Auto) 12.6 % (21.0-51.0) L 06/19/20 05:34 Edgar % (Auto) 8.4 % (0.0-13.0) 06/19/20 05:34 Eos % (Auto) 0.2 % (0.9-2.9) L 06/19/20 05:34 Baso % (Auto) 0.3 % (0.2-1.0) 06/19/20 05:34 Neut # (Auto) 9.2 x10^3/uL (2.2-4.8) H 06/19/20 05:34 Lymph # (Auto) 1.5 X10^3/uL (1.3-2.9) 06/19/20 05:34 Edgar # (Auto) 1.0 x10^3/uL (0.3-0.8) H 06/19/20 05:34 Eos # (Auto) 0.0 x10^3/uL (0.0-0.2) 06/19/20 05:34 Baso # (Auto) 0.0 X10^3/uL (0.0-0.1) 06/19/20 05:34 Absolute Nucleated RBC 0.0 /100WBC 06/19/20 05:34 ESR 7 MM/HOUR (0-15) 06/15/20 13:28 PT 14.1 SECONDS (11.8-14.3) 06/15/20 05:37 INR Target Range - 06/15/20 05:37 INR 1.12 (0.8-1.3) 06/15/20 05:37 APTT 33.7 SECONDS (22.9-36.5) 06/17/20 12:28 PTT Comment - 06/17/20 12:28 D-Dimer 1.99 ug/ml (0.0-0.57) H* 06/15/20 05:37 Prot C Funct Activity 115 % (83-168) 06/15/20 13:28 APC Resistance Ratio 3.53 (>=2.00) 06/15/20 13:28 Protein S Activity 139 % (66-143) 06/15/20 13:28 Antithrombin III Activ 93 % (76-128) 06/15/20 13:28 Sample Site Rrad 06/17/20 09:43 ABG pH 7.490 (7.35-7.45) H 06/17/20 09:43 ABG pCO2 32.0 mmHg (35.0-45.0) L 06/17/20 09:43 ABG pO2 99.0 mmHg (80.0-100.0) 06/17/20 09:43 ABG HCO3 24.4 mmol/L (22-26) 06/17/20 09:43 ABG O2 Saturation 98.0 % (90-100) 06/17/20 09:43 ABG Base Excess 1.6 mmol/L (-2.0-2.0) 06/17/20 09:43 Vicente Test Pos 06/17/20 09:43 A-a Gradient 11.0 mmHg 06/17/20 09:43 FiO2 21.0 06/17/20 09:43 Blood Gas Comments Pt farnaz well elj 06/17/20 09:43 Sodium 138 mmol/L (136-145) 06/19/20 05:34 Corrected Sodium TNP 06/19/20 05:34 Potassium 3.1 mmol/L (3.5-5.1) L 06/19/20 05:34 Chloride 104 mmol/L (98-107) 06/19/20 05:34 Carbon Dioxide 25.5 mmol/L (21-32) 06/19/20 05:34 BUN 15 mg/dL (7-18) 06/19/20 05:34 Creatinine 0.64 mg/dL (0.70-1.30) L 06/19/20 05:34 Est GFR (MDRD) Af Amer > 60 (>60) 06/19/20 05:34 Est GFR (MDRD) Non-Af > 60 (>60) 06/19/20 05:34 Glucose 89 mg/dL (65-99) 06/19/20 05:34 Calcium 8.5 mg/dL (8.5-10.1) 06/19/20 05:34 Corrected Calcium 9.7 mg/dL (8.5-10.1) 06/18/20 05:40 Magnesium 2.1 mg/dL (1.7-2.9) 06/19/20 05:34 Total Bilirubin 0.80 mg/dL (0.2-1.0) 06/18/20 05:40 AST 19 Units/L (15-37) 06/18/20 05:40 ALT 14 Units/L (12-78) 06/18/20 05:40 Alkaline Phosphatase 112 Units/L (46-116) 06/18/20 05:40 Creatine Kinase 270 Units/L (39-308) 06/17/20 05:45 CK-MB (CK-2) 1.3 ng/mL (0-4.0) 06/17/20 05:45 CK/CKMB % Calc 0.5 % (<4) 06/17/20 05:45 Troponin I < 0.02 ng/mL (0-1.5) 06/17/20 05:45 C-Reactive Protein 28.70 mg/L (0-3.0) H 06/15/20 13:28 B-Natriuretic Peptide 50.7 pg/mL (0-79) 06/14/20 09:48 Total Protein 6.6 g/dL (6.4-8.2) 06/18/20 05:40 Albumin 3.3 g/dL (3.4-5.0) L 06/18/20 05:40 Globulin 3.3 g/dL (2.5-4.5) 06/18/20 05:40 Albumin/Globulin Ratio 1.0 Ratio (1.1-2.1) L 06/18/20 05:40 Total PSA 0.77 ng/mL (0.13-4.0) 06/15/20 09:40 Homocysteine 134 umol/L (0-15) H 06/15/20 13:28 Specimen Type Clean catch urine 06/14/20 12:16 Urine Color Brown (YELLOW) 06/14/20 12:16 Urine Appearance Clear (CLEAR) 06/14/20 12:16 Urine pH 6.0 (5.0 - 8.0) 06/14/20 12:16 Ur Specific [place] 1.025 (1.000-1.030) 06/14/20 12:16 Urine Protein 2+ (NEGATIVE) 06/14/20 12:16 Urine Glucose (UA) Negative (NEGATIVE) 06/14/20 12:16 Urine Ketones 4+ (NEGATIVE) 06/14/20 12:16 Urine Occult Blood 1+ (NEGATIVE) 06/14/20 12:16 Urine Nitrite Negative (NEGATIVE) 06/14/20 12:16 Urine Bilirubin 1+ (NEGATIVE) 06/14/20 12:16 Urine Urobilinogen 1+ (NORMAL) 06/14/20 12:16 Ur Leukocyte Esterase 1+ (NEGATIVE) 06/14/20 12:16 Urine RBC 10-20 /HPF (0-3) A 06/14/20 12:16 Urine WBC 3-5 /HPF (0-5) 06/14/20 12:16 Ur Squamous Epith Cells Few /HPF (NEGATIVE) 06/14/20 12:16 Amorphous Sediment 1+ /HPF (NEGATIVE) 06/14/20 12:16 Urine Bacteria Negative /HPF (NEGATIVE) 06/14/20 12:16 Hyaline Casts Few /LPF (NEGATIVE) 06/14/20 12:16 Urine Mucus Many /HPF (NEGATIVE) 06/14/20 12:16 Ur Culture Indicated? No/not indicated 06/14/20 12:16 Stool Description 50 g. brown/formed 06/16/20 03:20 Stl Occult Blood (IFOB) Negative (NEGATIVE) 06/16/20 03:20 FAY Screen None detected (None Detected) 06/15/20 13:28 FAY Titer TNP 06/15/20 13:28 FAY Pattern TNP 06/15/20 13:28 SARS CoV-2 RNA Rapid MOISES Negative (NEGATIVE) 06/14/20 13:24 Plan (1) Atrial fibrillation: Status: Acute Qualifiers: Atrial fibrillation type: unspecified Qualified Code(s): I48.91 - Unspecified atrial fibrillation (2) Rhabdomyolysis: Status: Acute Qualifiers: Rhabdomyolysis type: non-traumatic Qualified Code(s): M62.82 - Rhabdomyolysis (3) Acute dehydration: Status: Acute (4) Lower extremity deep venous thrombosis: Status: Acute Qualifiers: Affected thrombotic vein of extremity: popliteal Chronicity: acute Laterality: right Qualified Code(s): I82.431 - Acute embolism and thrombosis of right popliteal vein (5) Pulmonary embolism: Status: Acute Qualifiers: Acute cor pulmonale presence: unspecified Chronicity: acute Pulmonary embolism type: unspecified Qualified Code(s): I26.99 - Other pulmonary embolism without acute cor pulmonale (6) Osteoarthritis: Status: Acute Qualifiers: Osteoarthritis location: unspecified site Osteoarthritis type: unspecified Qualified Code(s): M19.90 - Unspecified osteoarthritis, unspecified site (7) Parkinson disease: Status: Acute
[2020-06-19] MEDS: PERCOCET TAB 5/325 MG PO PRN ×2 (11:01→20:23)
[2020-06-19 13:56] LABS: BILIRUBIN,URINE NEGATIVE (NEGATIVE); BLOOD/HEMOGLOBIN,URINE 5+ (NEGATIVE); GLUCOSE, URINE NEGATIVE (NEGATIVE); KETONES,URINE 1+ (NEGATIVE); LEUKOCYTE ESTERASE ,URINE 1+ (NEGATIVE); NITRITES,URINE NEGATIVE (NEGATIVE); PROTEIN,URINE 1+ (NEGATIVE); UROBILINOGEN,URINE NORMAL (NORMAL)
[2020-06-19 13:59] LABS: APPEARANCE,URINE HAZY (CLEAR); COLOR,URINE AMBER (YELLOW)
[2020-06-19 14:07] LABS: BACTERIA,URINE 1+ /HPF (NEGATIVE); RBC,URINE TNTC /HPF (0-3); SQUAMOUS EPITHELIAL CELL,UR FEW /HPF (NEGATIVE)
[2020-06-19 14:08] LABS: MUCUS,URINE MODERATE /HPF (NEGATIVE)
[2020-06-19] MEDS: COLACE CAP 100 MG PO SCH (20:22)
[2020-06-20] MEDS: NS 1000 ML 1,000 ML IV SCH ×4 (00:33→21:28)
[2020-06-20] MEDS: SINEMET (PLAIN) 25/250 MG PO SCH ×5 (05:16→21:21)
[2020-06-20] MEDS: PERCOCET TAB 5/325 MG PO PRN ×3 (05:16→21:21)
[2020-06-20 06:43] LABS: BASOPHILS # (AUTO) 0.1 X10^3/uL (0.0-0.1); BASOPHILS % (AUTO) 0.7 % (0.2-1.0); EOSINOPHILS # (AUTO) 0.1 x10^3/uL (0.0-0.2); EOSINOPHILS % (AUTO) 1.2 % (0.9-2.9); HEMATOCRIT 40.5 % (42.0-54.0); HEMOGLOBIN 13.6 g/dL (13.5-18.0); LYMPHOCYTES # (AUTO) 1.1 X10^3/uL (1.3-2.9); LYMPHOCYTES % (AUTO) 12.4 % (21.0-51.0); MEAN CORPUSCULAR HEMOGLOBIN 30.2 pg (27.0-34.0); MEAN CORPUSCULAR HGB CONC 33.5 g/dL (33.0-35.0); MEAN CORPUSCULAR VOLUME 90.1 fL (80.0-100.0); MEAN PLATELET VOLUME 8.8 fL (7.4-11.0); MONOCYTES # (AUTO) 0.8 x10^3/uL (0.3-0.8); MONOCYTES % (AUTO) 8.8 % (0.0-13.0); NEUTROPHILS # (AUTO) 6.8 x10^3/uL (2.2-4.8); NEUTROPHILS % (AUTO) 76.9 % (42.0-75.0); PLATELET COUNT 222 X10^3/uL (150.0-450.0); RED BLOOD COUNT 4.49 X10^6/uL (4.7-6.0); RED CELL DISTRIBUTION WIDTH 14.4 % (11.6-16.5); WHITE BLOOD COUNT 8.9 X10^3/uL (3.6-10.0)
[2020-06-20 06:52] LABS: BLOOD UREA NITROGEN 16 mg/dL (7-18); CALCIUM 8.4 mg/dL (8.5-10.1); CARBON DIOXIDE 25.5 mmol/L (21-32); CHLORIDE 105 mmol/L (98-107); CREATININE 0.69 mg/dL (0.70-1.30); SODIUM 139 mmol/L (136-145); eGFR NON BLACK RACES > 60 (>60)
[2020-06-20] MEDS: MOBIC TAB 15 MG PO SCH (09:03)
[2020-06-20] MEDS: K-DUR TAB 20 MEQ PO PRN (09:03)
[2020-06-20] MEDS: ELIQUIS PO SCH ×2 (09:03→21:21)
[2020-06-20] MEDS: LOPRESSOR TAB 25 MG PO SCH ×2 (09:04→21:21)
[2020-06-20] MEDS ORDERED: LEXAPRO ONE ×3 (09:10)
[2020-06-20] MEDS: LEXAPRO PO SCH (09:12)
--- NOTE | 2020-06-20 11:54 | RAD ---
HISTORYSOB wrap demise lysis generalize weakness dehydrationSTUDYCHEST, 1 VIEWCOMPARISONAP portable chest June 14, 2020.FINDINGSThe trachea is midline. The cardiac silhouette is unremarkable . The lungs are clear without focal infiltrate or effusion. The bony thorax is unremarkable. Patient has had a lower C-spine anterior fusion surgery.IMPRESSIONNo acute cardiopulmonary disease and no significant change compared to prior study of June 14, 2020..Electronically signed by: REBEKAH SILVA (Jun 20, 2020 11:34:24)
[2020-06-20] MEDS: COLACE CAP 100 MG PO SCH (21:21)
[2020-06-21] MEDS: NS 1000 ML 1,000 ML IV SCH ×4 (01:37→23:19)
[2020-06-21] MEDS: SINEMET (PLAIN) 25/250 MG PO SCH ×5 (05:42→20:38)
[2020-06-21] MEDS: PERCOCET TAB 5/325 MG PO PRN ×2 (06:14→16:38)
[2020-06-21 06:53] LABS: BASOPHILS # (AUTO) 0.1 X10^3/uL (0.0-0.1); BASOPHILS % (AUTO) 0.8 % (0.2-1.0); EOSINOPHILS # (AUTO) 0.2 x10^3/uL (0.0-0.2); EOSINOPHILS % (AUTO) 1.7 % (0.9-2.9); HEMATOCRIT 41.5 % (42.0-54.0); LYMPHOCYTES % (AUTO) 10.8 % (21.0-51.0); MEAN CORPUSCULAR HEMOGLOBIN 30.5 pg (27.0-34.0); MEAN CORPUSCULAR HGB CONC 33.7 g/dL (33.0-35.0); MEAN CORPUSCULAR VOLUME 90.3 fL (80.0-100.0); MEAN PLATELET VOLUME 9.1 fL (7.4-11.0); MONOCYTES # (AUTO) 0.7 x10^3/uL (0.3-0.8); NEUTROPHILS # (AUTO) 7.6 x10^3/uL (2.2-4.8); NEUTROPHILS % (AUTO) 79.7 % (42.0-75.0); PLATELET COUNT 225 X10^3/uL (150.0-450.0); RED BLOOD COUNT 4.59 X10^6/uL (4.7-6.0); RED CELL DISTRIBUTION WIDTH 14.6 % (11.6-16.5); WHITE BLOOD COUNT 9.6 X10^3/uL (3.6-10.0)
[2020-06-21 07:11] LABS: ALANINE AMINOTRANSFERASE 23 Units/L (12-78); ALBUMIN 3.3 g/dL (3.4-5.0); ALKALINE PHOSPHATASE 101 Units/L (46-116); ASPARTATE AMINO TRANSFERASE 21 Units/L (15-37); BLOOD UREA NITROGEN 8 mg/dL (7-18); CALCIUM 8.7 mg/dL (8.5-10.1); CARBON DIOXIDE 23.9 mmol/L (21-32); CHLORIDE 102 mmol/L (98-107); COR CA(FOR HYPOALB) 9.3 mg/dL (8.5-10.1); CREATININE 0.57 mg/dL (0.70-1.30); SODIUM 135 mmol/L (136-145); TOTAL PROTEIN 6.3 g/dL (6.4-8.2); eGFR NON BLACK RACES > 60 (>60)
[2020-06-21] MEDS ORDERED: LEXAPRO ONE (08:20)
[2020-06-21] MEDS: MOBIC TAB 15 MG PO SCH (09:00)
[2020-06-21] MEDS: LEXAPRO PO SCH (09:00)
[2020-06-21] MEDS: ELIQUIS PO SCH ×2 (09:01→20:37)
[2020-06-21] MEDS: LOPRESSOR TAB 25 MG PO SCH ×2 (09:05→20:37)
[2020-06-21] MEDS: LIORESAL PO SCH ×2 (13:33→22:28)
[2020-06-21] MEDS: COLACE CAP 100 MG PO SCH (20:37)
[2020-06-22] MEDS: NS 1000 ML 1,000 ML IV SCH ×2 (02:43→12:33)
[2020-06-22] MEDS: SINEMET (PLAIN) 25/250 MG PO SCH ×3 (05:40→12:32)
[2020-06-22] MEDS: LIORESAL PO SCH (05:40)
[2020-06-22] MEDS ORDERED: LEXAPRO ONE (08:07)
[2020-06-22] MEDS: MOBIC TAB 15 MG PO SCH (08:38)
[2020-06-22] MEDS: LEXAPRO PO SCH (08:39)
[2020-06-22] MEDS: K-DUR TAB 20 MEQ PO PRN (08:40)
[2020-06-22] MEDS: LOPRESSOR TAB 25 MG PO SCH (08:40)
[2020-06-22] MEDS: ELIQUIS PO SCH (08:40)
[2020-06-22 11:49] VITALS: BP 141/66
[2020-06-22] MEDS ORDERED: PriLOSEC PO SCH (12:00)
[2020-06-23 06:31] LABS: PROTHROMBIN G20210A Negative
[2020-06-25] MEDS ORDERED: ELIQUIS PO SCH (09:00)
[2020-06-27] MEDS ORDERED: PERCOCET TAB 5/325 MG PO SCH (15:00)
== END 2020-06-22 14:00 | DRG 300 ==
LOC: ER 09:28 → MED/SURG 13:48
PROVIDERS: ADMIT Internal Medicine; ATTEND Internal Medicine
DX: E86.0 Dehydration; M50.90 Cervical disc disorder, unspecified, unspecified cervical region; I82.431 Acute embolism and thrombosis of right popliteal vein; R53.1 Weakness; R26.2 Difficulty in walking, not elsewhere classified; I48.91 Unspecified atrial fibrillation; Z91.81 History of falling; M19.09 Primary osteoarthritis, other specified site; I10 Essential (primary) hypertension; R00.1 Bradycardia, unspecified; D68.9 Coagulation defect, unspecified; M62.82 Rhabdomyolysis; M51.36 Other intervertebral disc degeneration, lumbar region; Z20.822 Contact with and (suspected) exposure to COVID-19; R06.02 Shortness of breath; G20 Parkinson's disease

== ENCOUNTER 2022-11-13 05:31 | Observation (INO) ==
[2022-11-13 05:50] VITALS: BMI 31.9
--- NOTE | 2022-11-13 06:02 | DR.GENAD ---
HPI <Simon Maguire - Last Filed: 11/16/22 08:34> Time Seen Time Seen by Provider: 11/13/22 05:59 PCP Primary Care Physician: JULIO DOWNS Complaint/Symptoms Chief Complaint Doctors Comments: UNSTABLE AND WEAKNESS MORE OVER PAST WEEK. H/O PARKINSONS DISEASE AND HAS NOT TAKEN MEDS PRESCRIBED. Chief Complaint:: PT C/O FEELING TINGLY AND SWEATING AND JUST NOT FEELING RIGHT FOR ABOUT A WEEK NOW. COVID-19 Coronavirus risk:travel/contact w/high risk person: No Has patient experienced Coronavirus symptoms: No Source History Provided: Patient Mode of Arrival Mode of Arrival: EMS Timing Onset of Chief Complaint: 11/05/22 PMH <Simon Maguire - Last Filed: 11/16/22 08:34> PMH Past Medical History: Yes Past Medical History: Arthritis and Hypertension Past Medical History Comment: PARKINSONS Past Surgical History: Yes Surgical History: Ortho Surgery, Tonsillectomy and Other Past Surgical History Comment: NECK, HERNIA REPAIR, LEFT LEG, BONE SPURS Family History History of Family Medical Conditions: Yes Family Medical History: Cancer, [place], Heart Failure and Hypertension Social History Alcohol Use: None Do you use any recreational Drugs:: No Lives With: Family Lives Where: Home Travel Risk Coronavirus risk:travel/contact w/high risk person: No Has patient experienced Coronavirus symptoms: No Infectious screening In the last 2 months have you had wt loss of >10#?: NO Have you had fever, night sweats or hemotysis?: No Have you traveled outside the country in the last 6 months?: No Isolation: Standard ROS <Simon Maguire - Last Filed: 11/16/22 08:34> Review of Systems Constitutional: Malaise and Weakness Eyes: No Symptoms Reported ENTM: No Symptoms Reported Respiratoy: No Symptoms Reported Cardiovascular: No Symptoms Reported Gastrointestinal/Abdominal: No Symptoms Reported Genitourinary: No Symptoms Reported Neurological: Tingling and Problems Walking Musculoskeletal: No Symptoms Reported Integumentary: No Symptoms Reported Hematologic/Lymphatic: No Symptoms Reported Endocrine: No Symptoms Reported Psychiatric: No Symptoms Reported PE <Simon Loftonis - Last Filed: 11/16/22 08:34> Vital Signs Vitals: Vital Signs Temperature 97.9 F Pulse Rate 87 Respiratory Rate 20 Blood Pressure 127/79 O2 Sat by Pulse Oximetry 94 General Limitations: Physical Limitation (LIMITED AMBULATION DUE TO PARKINSONS) General Appearance: In No Apparent Distress Head Head Exam: Normal Inspection, Atraumatic and Normocephalic Eyes Eye exam: Normal Appearance, PERRL and EOMI ENT ENT Exam: Normal Exam and Normal Oropharynx External Ear Exam: Normal External Inspection TM/Canal Exam: Bilateral: Normal Nose Exam: Normal Nose Exam Mouth Exam: Normal Inspection Throat Exam: Normal Inspection Neck Neck Exam: Normal Inspection and Trachea Midline Chest Chest Inspection: Normal Inspection and Symmetric Chest Wall Rise Respiratory Respiratory Exam: Normal Lung Sounds Bilat Respiratory Exam: Bilateral: Clear to Auscultation Cardiovascular Cardiovascular Exam: Regular Rate and Normal Rhythm Abdominal Exam Abdominal Exam: Normal Inspection, Normal Bowel Sounds and Soft Extremities Extremities Exam: Other (LESIONS ON LEGS) Back Back Exam: Normal Inspection Neurologic Neurological Exam: Alert, Oriented X3 and CN II-XII Intact Psychiatric Psychiatric Exam: Normal Affect Skin Skin Exam: Warm, Dry and Intact <Sheldon Thornton - Last Filed: 11/13/22 09:54> Vital Signs Vitals: Vital Signs Temperature 97.9 F Pulse Rate 87 Respiratory Rate 20 Blood Pressure 127/79 O2 Sat by Pulse Oximetry 94 MDM <Simon Maguire - Last Filed: 11/16/22 08:34> Differential Diagnosis Differential Diagnosis: PARKINSONS IN PROGRESSION,LETHARGY,UTI COURSE <Simon Maguire - Last Filed: 11/16/22 08:34> Treatment Treatment: SIGNED OUT TO DR VELASCO AT O800 <Sheldon Thornton - Last Filed: 11/13/22 09:54> Treatment Treatment: SIGNED OUT TO DR THORNTON AT O800.. 0926 - labs overall acceptable, U/a does have 3+ ketones, despite normal renal numbers. Has not been eating, drinking well. PT cared for at home by sister, sister could use a break in caring for him, interested in [facility] placement for therapy. Will discuss with his attending, Dr Bruce. 0958 - accepted for admission,by Dr Bruce. ROR <Simon Maguire - Last Filed: 11/16/22 08:34> Labs Reviewed 11/16/22 05:24 11/16/22 05:24 Laboratory: WBC 15.4 X10^3/uL (3.6-10.0) H 11/13/22 06:37 RBC 5.19 X10^6/uL (4.7-6.0) 11/13/22 06:37 Hgb 15.1 g/dL (13.5-18.0) 11/13/22 06:37 Hct 45.7 % (42.0-54.0) 11/13/22 06:37 MCV 88.0 fL (80.0-100.0) 11/13/22 06:37 MCH 29.1 pg (27.0-34.0) 11/13/22 06:37 MCHC 33.1 g/dL (33.0-35.0) 11/13/22 06:37 RDW 15.4 % (11.6-16.5) 11/13/22 06:37 Plt Count 279 X10^3/uL (150.0-450.0) 11/13/22 06:37 MPV 7.3 fL (7.4-11.0) L 11/13/22 06:37 Neut % (Auto) 88.4 % (42.0-75.0) H 11/13/22 06:37 Lymph % (Auto) 5.1 % (21.0-51.0) L 11/13/22 06:37 [place] % (Auto) 5.6 % (0.0-13.0) 11/13/22 06:37 Eos % (Auto) 0.2 % (0.9-2.9) L 11/13/22 06:37 Baso % (Auto) 0.7 % (0.2-1.0) 11/13/22 06:37 Neut # (Auto) 13.6 x10^3/uL (2.2-4.8) H 11/13/22 06:37 Lymph # (Auto) 0.8 X10^3/uL (1.3-2.9) L 11/13/22 06:37 [place] # (Auto) 0.9 x10^3/uL (0.3-0.8) H 11/13/22 06:37 Eos # (Auto) 0.0 x10^3/uL (0.0-0.2) 11/13/22 06:37 Baso # (Auto) 0.1 X10^3/uL (0.0-0.1) 11/13/22 06:37 Absolute Nucleated RBC 0.0 /100WBC 11/13/22 06:37 Sodium 142 mmol/L (136-145) 11/13/22 06:37 Corrected Sodium TNP 11/13/22 06:37 Potassium 3.5 mmol/L (3.5-5.1) 11/13/22 06:37 Chloride 105 mmol/L (98-107) 11/13/22 06:37 Carbon Dioxide 24.5 mmol/L (21-32) 11/13/22 06:37 BUN 13 mg/dL (7-18) 11/13/22 06:37 Creatinine 0.63 mg/dL (0.70-1.30) L 11/13/22 06:37 Est GFR (MDRD) Af Amer > 60 (>60) 11/13/22 06:37 Est GFR (MDRD) Non-Af > 60 (>60) 11/13/22 06:37 Glucose 104 mg/dL (65-99) H 11/13/22 06:37 Calcium 9.0 mg/dL (8.5-10.1) 11/13/22 06:37 Corrected Calcium TNP 11/13/22 06:37 Total Bilirubin 0.70 mg/dL (0.2-1.0) 11/13/22 06:37 AST 13 Units/L (15-37) L 11/13/22 06:37 ALT 9 Units/L (12-78) L 11/13/22 06:37 Alkaline Phosphatase 107 Units/L (46-116) 11/13/22 06:37 Creatine Kinase 71 Units/L (39-308) 11/13/22 06:37 Troponin I High Sens 9.6 ng/L (4.0-60.0) 11/13/22 06:37 Total Protein 6.8 g/dL (6.4-8.2) 11/13/22 06:37 Albumin 3.7 g/dL (3.4-5.0) 11/13/22 06:37 Globulin 3.1 g/dL (2.5-4.5) 11/13/22 06:37 Albumin/Globulin Ratio 1.2 Ratio (1.1-2.1) 11/13/22 06:37 Specimen Type Clean catch urine 11/13/22 07:20 Urine Color Teri (YELLOW) 11/13/22 07:20 Urine Appearance Slightly hazy (CLEAR) 11/13/22 07:20 Urine pH 5.0 (5.0 - 8.0) 11/13/22 07:20 Ur Specific [place] 1.025 (1.000-1.030) 11/13/22 07:20 Urine Protein 2+ (NEGATIVE) 11/13/22 07:20 Urine Glucose (UA) Negative (NEGATIVE) 11/13/22 07:20 Urine Ketones 3+ (NEGATIVE) 11/13/22 07:20 Urine Blood 1+ (NEGATIVE) 11/13/22 07:20 Urine Nitrite Negative (NEGATIVE) 11/13/22 07:20 Urine Bilirubin 1+ (NEGATIVE) 11/13/22 07:20 Urine Urobilinogen 2+ (NORMAL) 11/13/22 07:20 Ur Leukocyte Esterase 1+ (NEGATIVE) 11/13/22 07:20 Urine RBC 0-2 /HPF (0-3) 11/13/22 07:20 Urine WBC 0-2 /HPF (0-5) 11/13/22 07:20 Ur Squamous Epith Cells Few /HPF (NEGATIVE) 11/13/22 07:20 Calcium Oxalate Crystal Few /HPF (NEGATIVE) 11/13/22 07:20 Urine Bacteria Trace /HPF (NEGATIVE) 11/13/22 07:20 Hyaline Casts Moderate /LPF (NEGATIVE) 11/13/22 07:20 Ur Culture Indicated? No/not indicated 11/13/22 07:20 <Sheldon Thornton - Last Filed: 11/13/22 09:54> Labs Reviewed Laboratory Results Reviewed?: Yes Laboratory: WBC 15.4 X10^3/uL (3.6-10.0) H 11/13/22 06:37 RBC 5.19 X10^6/uL (4.7-6.0) 11/13/22 06:37 Hgb 15.1 g/dL (13.5-18.0) 11/13/22 06:37 Hct 45.7 % (42.0-54.0) 11/13/22 06:37 MCV 88.0 fL (80.0-100.0) 11/13/22 06:37 MCH 29.1 pg (27.0-34.0) 11/13/22 06:37 MCHC 33.1 g/dL (33.0-35.0) 11/13/22 06:37 RDW 15.4 % (11.6-16.5) 11/13/22 06:37 Plt Count 279 X10^3/uL (150.0-450.0) 11/13/22 06:37 MPV 7.3 fL (7.4-11.0) L 11/13/22 06:37 Neut % (Auto) 88.4 % (42.0-75.0) H 11/13/22 06:37 Lymph % (Auto) 5.1 % (21.0-51.0) L 11/13/22 06:37 [place] % (Auto) 5.6 % (0.0-13.0) 11/13/22 06:37 Eos % (Auto) 0.2 % (0.9-2.9) L 11/13/22 06:37 Baso % (Auto) 0.7 % (0.2-1.0) 11/13/22 06:37 Neut # (Auto) 13.6 x10^3/uL (2.2-4.8) H 11/13/22 06:37 Lymph # (Auto) 0.8 X10^3/uL (1.3-2.9) L 11/13/22 06:37 [place] # (Auto) 0.9 x10^3/uL (0.3-0.8) H 11/13/22 06:37 Eos # (Auto) 0.0 x10^3/uL (0.0-0.2) 11/13/22 06:37 Baso # (Auto) 0.1 X10^3/uL (0.0-0.1) 11/13/22 06:37 Absolute Nucleated RBC 0.0 /100WBC 11/13/22 06:37 Sodium 142 mmol/L (136-145) 11/13/22 06:37 Corrected Sodium TNP 11/13/22 06:37 Potassium 3.5 mmol/L (3.5-5.1) 11/13/22 06:37 Chloride 105 mmol/L (98-107) 11/13/22 06:37 Carbon Dioxide 24.5 mmol/L (21-32) 11/13/22 06:37 BUN 13 mg/dL (7-18) 11/13/22 06:37 Creatinine 0.63 mg/dL (0.70-1.30) L 11/13/22 06:37 Est GFR (MDRD) Af Amer > 60 (>60) 11/13/22 06:37 Est GFR (MDRD) Non-Af > 60 (>60) 11/13/22 06:37 Glucose 104 mg/dL (65-99) H 11/13/22 06:37 Calcium 9.0 mg/dL (8.5-10.1) 11/13/22 06:37 Corrected Calcium TNP 11/13/22 06:37 Total Bilirubin 0.70 mg/dL (0.2-1.0) 11/13/22 06:37 AST 13 Units/L (15-37) L 11/13/22 06:37 ALT 9 Units/L (12-78) L 11/13/22 06:37 Alkaline Phosphatase 107 Units/L (46-116) 11/13/22 06:37 Creatine Kinase 71 Units/L (39-308) 11/13/22 06:37 Troponin I High Sens 9.6 ng/L (4.0-60.0) 11/13/22 06:37 Total Protein 6.8 g/dL (6.4-8.2) 11/13/22 06:37 Albumin 3.7 g/dL (3.4-5.0) 11/13/22 06:37 Globulin 3.1 g/dL (2.5-4.5) 11/13/22 06:37 Albumin/Globulin Ratio 1.2 Ratio (1.1-2.1) 11/13/22 06:37 Specimen Type Clean catch urine 11/13/22 07:20 Urine Color Teri (YELLOW) 11/13/22 07:20 Urine Appearance Slightly hazy (CLEAR) 11/13/22 07:20 Urine pH 5.0 (5.0 - 8.0) 11/13/22 07:20 Ur Specific [place] 1.025 (1.000-1.030) 11/13/22 07:20 Urine Protein 2+ (NEGATIVE) 11/13/22 07:20 Urine Glucose (UA) Negative (NEGATIVE) 11/13/22 07:20 Urine Ketones 3+ (NEGATIVE) 11/13/22 07:20 Urine Blood 1+ (NEGATIVE) 11/13/22 07:20 Urine Nitrite Negative (NEGATIVE) 11/13/22 07:20 Urine Bilirubin 1+ (NEGATIVE) 11/13/22 07:20 Urine Urobilinogen 2+ (NORMAL) 11/13/22 07:20 Ur Leukocyte Esterase 1+ (NEGATIVE) 11/13/22 07:20 Urine RBC 0-2 /HPF (0-3) 11/13/22 07:20 Urine WBC 0-2 /HPF (0-5) 11/13/22 07:20 Ur Squamous Epith Cells Few /HPF (NEGATIVE) 11/13/22 07:20 Calcium Oxalate Crystal Few /HPF (NEGATIVE) 11/13/22 07:20 Urine Bacteria Trace /HPF (NEGATIVE) 11/13/22 07:20 Hyaline Casts Moderate /LPF (NEGATIVE) 11/13/22 07:20 Ur Culture Indicated? No/not indicated 11/13/22 07:20 Opioid <Simon Maguire - Last Filed: 11/16/22 08:34> Opioid Risk Tool Age (Deng box if 16-45): No History of Preadolescent Sexual Abuse: No Total: 0 Total Score Risk Category: Low Risk Copyright: Agusto JANG predicting aberrant behaviors <Sheldon Thornton - Last Filed: 11/13/22 09:54> Opioid Risk Tool Total: 0 Total Score Risk Category: Low Risk Discharge Plan Diagnosis Discharge Problem: Parkinson disease, Generalized weakness, Adult failure to thrive Discharge Plan Patient Disposition: 09 ADMITTED INPATIENT Condition: Stable
[2022-11-13 06:51] LABS: BASOPHILS # (AUTO) 0.1 X10^3/uL (0.0-0.1); BASOPHILS % (AUTO) 0.7 % (0.2-1.0); EOSINOPHILS % (AUTO) 0.2 % (0.9-2.9); HEMATOCRIT 45.7 % (42.0-54.0); HEMOGLOBIN 15.1 g/dL (13.5-18.0); LYMPHOCYTES # (AUTO) 0.8 X10^3/uL (1.3-2.9); LYMPHOCYTES % (AUTO) 5.1 % (21.0-51.0); MEAN CORPUSCULAR HEMOGLOBIN 29.1 pg (27.0-34.0); MEAN CORPUSCULAR HGB CONC 33.1 g/dL (33.0-35.0); MEAN PLATELET VOLUME 7.3 fL (7.4-11.0); MONOCYTES # (AUTO) 0.9 x10^3/uL (0.3-0.8); MONOCYTES % (AUTO) 5.6 % (0.0-13.0); NEUTROPHILS # (AUTO) 13.6 x10^3/uL (2.2-4.8); NEUTROPHILS % (AUTO) 88.4 % (42.0-75.0); PLATELET COUNT 279 X10^3/uL (150.0-450.0); RED BLOOD COUNT 5.19 X10^6/uL (4.7-6.0); RED CELL DISTRIBUTION WIDTH 15.4 % (11.6-16.5); WHITE BLOOD COUNT 15.4 X10^3/uL (3.6-10.0)
[2022-11-13 07:19] LABS: BLOOD UREA NITROGEN 13 mg/dL (7-18); CARBON DIOXIDE 24.5 mmol/L (21-32); CHLORIDE 105 mmol/L (98-107); CREATININE 0.63 mg/dL (0.70-1.30); GLUCOSE 104 mg/dL (65-99); POTASSIUM 3.5 mmol/L (3.5-5.1); SODIUM 142 mmol/L (136-145); eGFR NON BLACK RACES > 60 (>60)
[2022-11-13 07:26] LABS: BILIRUBIN,URINE 1+ (NEGATIVE); BLOOD/HEMOGLOBIN,URINE 1+ (NEGATIVE); GLUCOSE, URINE NEGATIVE (NEGATIVE); KETONES,URINE 3+ (NEGATIVE); LEUKOCYTE ESTERASE ,URINE 1+ (NEGATIVE); NITRITES,URINE NEGATIVE (NEGATIVE); PROTEIN,URINE 2+ (NEGATIVE); UROBILINOGEN,URINE 2+ (NORMAL)
[2022-11-13 07:34] LABS: ALANINE AMINOTRANSFERASE 9 Units/L (12-78); ALBUMIN 3.7 g/dL (3.4-5.0); ALKALINE PHOSPHATASE 107 Units/L (46-116); ASPARTATE AMINO TRANSFERASE 13 Units/L (15-37); TOTAL PROTEIN 6.8 g/dL (6.4-8.2)
[2022-11-13 07:42] LABS: APPEARANCE,URINE SLIGHTLY HAZY (CLEAR); COLOR,URINE AMBER (YELLOW)
[2022-11-13 07:43] LABS: BACTERIA,URINE TRACE /HPF (NEGATIVE); CALCIUM OXALATE CRYSTALS,UR FEW /HPF (NEGATIVE); HYALINE CASTS, URINE MODERATE /LPF (NEGATIVE); RBC,URINE 0-2 /HPF (0-3); SQUAMOUS EPITHELIAL CELL,UR FEW /HPF (NEGATIVE)
[2022-11-13] MEDS ORDERED: NS 1,000 ML IV 1,000 ML IV ONE (09:28)
[2022-11-13] MEDS ORDERED: NS 1,000 ML IV 1,000 ML ONE (09:29)
[2022-11-13] MEDS ORDERED: CONSULT PHARMACY - POTASSIUM & MAGNESIUM XX SCH (11:12)
[2022-11-13] MEDS ORDERED: D5 1/2 NS 1,000 ML 1,000 ML IV ONE (11:14)
[2022-11-13] MEDS ORDERED: SINEMET (PLAIN) 10/100 MG PO PRN (11:15)
[2022-11-13] MEDS: D5 1/2 NS 1,000 ML 1,000 ML IV SCH ×2 (11:17→23:03)
[2022-11-13] MEDS ORDERED: K-DUR TAB 20 MEQ PO ONE (13:34)
[2022-11-13] MEDS: K-DUR TAB 20 MEQ PO SCH ×2 (13:43→20:43)
[2022-11-13] MEDS: SINEMET (PLAIN) 25/250 MG PO SCH ×3 (13:44→20:43)
--- NOTE | 2022-11-13 17:19 | DR.H&P ---
H&P - History & Physical for Day of: H&P Date: 11/13/22 - Chief Complaint Chief Complaint: "SWEATING AND TINGLING FEELING ALL WEEK". WEAKNESS - History of Present Illness History of Present Illness: PT IS 51 WM, ER ADMISSION AFTER PRESENTING WITH CO INCREASED WEAKNESS AND SWEATS WITH TINGLING FEELING FOR A WEEK. 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 PT ADMITTED FOR TREATMENT AND EVALUATION OF ACUTE ILLNESS. - Past Medical History Past Medical History: Anxiety, Arthritis, Hypertension Additional Medical History: PARKINSON - Past Surgical History Surgical History: Ortho Surgery, Tonsillectomy - Family History Family Medical History: Cancer, [place], Coronary Artery Disease, Heart Failure, Hypertension - Social History Does patient currently use any type of tobacco product: No Have you used tobacco products in the last 12 months: No Type of Tobacco Use: None Does any household member use tobacco: No Alcohol Use: None Drug Use: None - Review of Systems Constitutional: Sweats, Weakness, Malaise Eyes: No Symptoms Reported ENT: No Symptoms Reported Respiratory: SOB with Excertion Cardiovascular: No Symptoms Reported Gastrointestinal: No Symptoms Reported Genitourinary: Frequency Musculoskeletal: Back Pain, Neck Pain Skin: No Symptoms Reported Neurological: Weakness - Physical Exam Vital Signs: Vital Signs Pulse Rate [Bilateral Radial] 68 Pulse Rate [Bilateral Radial] 73 Respiratory Rate 22 Respiratory Rate 22 Blood Pressure [Right Arm] 142/81 O2 Sat by Pulse Oximetry 98 O2 Sat by Pulse Oximetry 96 Oriented: Normal Eyes: Normal Ear: Normal Nose: Normal Throat: Normal Respiratory: RLL Diminished, LLL Diminished Cardiovascular: Normal : Normal Auscultation: Bowel Sounds: Normal Palpation: Normal Tenderness: Normal Skin: Decreased Turgur Musculoskeletal: Motor Deficit, Sensory Deficit Psychiatric: Anxiety Affect: Anxious Speech Pattern: Clear, Appropriate - Assessment/Plan (1) UTI (urinary tract infection) Status: Acute Plan: ADMIT, IV HYDRATION. IV ATBX, URINE CULTURE. VERIFY HOME MEDICATION. CXR AND EKG ON ADMISSION. BP CONTROL, US LE RO DVT. PHYSICAL THERAPY CONSULT (2) Parkinson's disease Status: Acute (3) Generalized weakness Status: Acute - Allergies Allergies/Adverse Reactions: Allergies Allergy/AdvReac Type Severity Reaction Status Date / Time No Known Drug Allergies Allergy Verified 11/13/22 05:40 - Medications Home Medications: Home Medications Medication Instructions Recorded Confirmed carbidopa 10 mg-levodopa 100 mg 1 tab PO TID PRN 05/25/22 11/13/22 tablet carbidopa 25 mg-levodopa 250 mg 1 tab PO QID 05/25/22 11/13/22 tablet escitalopram oxalate 10 mg tablet 10 mg PO QDAY 05/25/22 11/13/22 meloxicam 15 mg tablet 15 mg PO QDAY 05/25/22 11/13/22 pantoprazole 40 mg tablet,delayed 40 mg PO QDAY 05/25/22 11/13/22 release amantadine HCl 100 mg tablet 100 mg PO BID 11/13/22 11/13/22
[2022-11-13] MEDS: AMANTADINE HCL 100 MG CAP PO SCH (20:44)
[2022-11-14] MEDS: D5 1/2 NS 1,000 ML 1,000 ML IV SCH ×3 (00:23→23:31)
[2022-11-14] MEDS: TYLENOL 325 MG TAB PO PRN ×2 (02:15→14:31)
--- NOTE | 2022-11-14 05:41 | RAD ---
HISTORYDOE Relevant Clinical InformationSTUDYCHEST, 1 [id number]/10/2023FINDINGSThe trachea is midline. The cardiac silhouette is unremarkable. There is persistent elevation of the right hemidiaphragm. The lungs are clear without focal infiltrate or effusion. The bony thorax is unremarkable.IMPRESSIONPersistent elevation of the right hemidiaphragm.No active cardiopulmonary disease.Electronically signed by: Adams Asher (Nov 14, 2022 05:40:11)
[2022-11-14 06:33] LABS: BASOPHILS # (AUTO) 0.1 X10^3/uL (0.0-0.1); BASOPHILS % (AUTO) 0.6 % (0.2-1.0); EOSINOPHILS # (AUTO) 0.2 x10^3/uL (0.0-0.2); EOSINOPHILS % (AUTO) 2.1 % (0.9-2.9); LYMPHOCYTES # (AUTO) 1.3 X10^3/uL (1.3-2.9); LYMPHOCYTES % (AUTO) 13.7 % (21.0-51.0); MEAN CORPUSCULAR HEMOGLOBIN 29.6 pg (27.0-34.0); MEAN CORPUSCULAR HGB CONC 33.3 g/dL (33.0-35.0); MEAN CORPUSCULAR VOLUME 88.9 fL (80.0-100.0); MEAN PLATELET VOLUME 7.8 fL (7.4-11.0); MONOCYTES # (AUTO) 0.7 x10^3/uL (0.3-0.8); MONOCYTES % (AUTO) 7.9 % (0.0-13.0); NEUTROPHILS # (AUTO) 7.1 x10^3/uL (2.2-4.8); NEUTROPHILS % (AUTO) 75.7 % (42.0-75.0); PLATELET COUNT 240 X10^3/uL (150.0-450.0); RED BLOOD COUNT 4.72 X10^6/uL (4.7-6.0); RED CELL DISTRIBUTION WIDTH 15.4 % (11.6-16.5); WHITE BLOOD COUNT 9.3 X10^3/uL (3.6-10.0)
[2022-11-14 06:58] LABS: BLOOD UREA NITROGEN 10 mg/dL (7-18); CALCIUM 8.3 mg/dL (8.5-10.1); CHLORIDE 106 mmol/L (98-107); CREATININE 0.64 mg/dL (0.70-1.30); GLUCOSE 90 mg/dL (65-99); POTASSIUM 3.4 mmol/L (3.5-5.1); SODIUM 141 mmol/L (136-145); eGFR NON BLACK RACES > 60 (>60)
[2022-11-14 07:35] LABS: ALANINE AMINOTRANSFERASE 6 Units/L (12-78); ALBUMIN 3.2 g/dL (3.4-5.0); ALKALINE PHOSPHATASE 93 Units/L (46-116); ASPARTATE AMINO TRANSFERASE 10 Units/L (15-37); COR CA(FOR HYPOALB) 8.9 mg/dL (8.5-10.1); MAGNESIUM 1.9 mg/dL (2.0-2.9); TOTAL PROTEIN 5.8 g/dL (6.4-8.2)
[2022-11-14] MEDS ORDERED: CONSULT PHARMACY - POTASSIUM & MAGNESIUM XX SCH (09:00)
[2022-11-14] MEDS ORDERED: LEXAPRO ONE (09:01)
[2022-11-14] MEDS: K-DUR TAB 20 MEQ PO SCH ×2 (09:09→20:52)
[2022-11-14] MEDS: MOBIC TAB 15 MG PO SCH (09:09)
[2022-11-14] MEDS: MAG-OX TAB PO SCH ×2 (09:09→10:00)
[2022-11-14] MEDS: PROTONIX TAB 40 MG PO SCH (09:09)
[2022-11-14] MEDS: AMANTADINE HCL 100 MG CAP PO SCH ×2 (09:10→20:52)
[2022-11-14] MEDS: LEXAPRO PO SCH (09:10)
[2022-11-14] MEDS: SINEMET (PLAIN) 25/250 MG PO SCH ×5 (09:10→20:52)
--- NOTE | 2022-11-14 11:28 | VAS ---
HISTORYB/L LOWER EXT EDEMAExtremity pain, swelling, and edemaStudy: Bilateral lower extremity Doppler venous ultrasound.TECHNIQUE: Multiple adam scale and color flow Doppler images of the deep venous system were obtained of the [right and left] lower extremity.FINDINGS: The deep venous system of the [right and left lower extremities were] evaluated from the level of the common femoral veins through the popliteal veins, bilaterally. Normal color flow and augmentation can be observed. In addition, normal compression is seen throughout the deep venous system. No Madrigal's cyst is seen.IMPRESSION:1. Negative examination for DVT.Electronically signed by: SHILA WILBURN III (Nov 14, 2022 11:27:34)
[2022-11-14] MEDS: LOVENOX INJ 40 MG SYR SC SCH (14:30)
--- NOTE | 2022-11-14 18:07 | PCM.PROG ---
Progress Note - Progress Note for Day of Date of Exam: 11/14/22 - Subjective Subjective: PT IS 51 WM, ER ADMISSION WITH WORSENING WEAKNESS AND MULTIPLE FALLS FROM ADVANCING PARKINSON'S. PT IS CURRENTLY ON ROCEPHIN FOR UTI WITH CULTURE PENDING. PT HAS PMH OF DVTS. LOWER LIMB US ORDERED FOR TODAY. PT ALSO HAS PREVIOUS HX OF AFIB, WITHOUT SYMPTOMS OF CHEST PAIN AT THIS TIME. PT DOES REPORT SOB ON EXERTION. PT'S WBC IMPROVING WITH IV ATBX THERAPY. PLAN TO CONTINUE WITH PHYSICAL THERAPY AND DISCUSS OPTIONS FOR SWING BED THERAPY. - Past Medical Family Social History Past Med/Fam/Surg Hx: No changes since H&P Allergies: Allergies No Known Drug Allergies Allergy (Verified 11/13/22 05:40) - Review of Systems ROS: No change since H&P - Vital Signs and I&O's Vital Signs: Vital Signs Temperature 97.5 F Temperature 97.8 F Pulse Rate [Bilateral Radial] 82 Pulse Rate [Bilateral Radial] 74 Respiratory Rate 20 Respiratory Rate 20 Respiratory Rate 20 Respiratory Rate 20 Blood Pressure [Right Arm] 131/80 Blood Pressure [Right Arm] 163/84 O2 Sat by Pulse Oximetry 96 O2 Sat by Pulse Oximetry 96 Intake and Output: Intake & Output 11/12/22 11/13/22 11/14/22 11/15/22 11:59 11:59 11:59 11:59 Intake Total 1906 / 1906 640 / 640 Output Total 200 / 200 500 / 500 Balance 1706 / 1706 140 / 140 - Physical Exam Oriented: Normal Eyes: Normal Ear: Normal Nose: Normal Throat: Normal Respiratory: Diminished Cardiovascular: Normal : Normal Auscultation: Bowel Sounds: Normal Tenderness: Normal Skin: Decreased Turgur Musculoskeletal: Motor Deficit, Sensory Deficit Psychiatric: Anxiety Affect: Anxious Speech Pattern: Clear, Appropriate - Laboratory and Diagnostics Result Diagrams: 11/14/22 05:23 11/14/22 05:23 Labs: 11/13/22 19:30 Urine,Clean Catch Urine Culture - Preliminary Laboratory WBC 9.3 X10^3/uL (3.6-10.0) 11/14/22 05:23 RBC 4.72 X10^6/uL (4.7-6.0) 11/14/22 05: Hgb 14.0 g/dL (13.5-18.0) 11/14/22 05:23 Hct 42.0 % (42.0-54.0) 11/14/22 05:23 MCV 88.9 fL (80.0-100.0) 11/14/22 05: MCH 29.6 pg (27.0-34.0) 11/14/22 05: MCHC 33.3 g/dL (33.0-35.0) 11/14/22 05: RDW 15.4 % (11.6-16.5) 11/14/22 05: Plt Count 240 X10^3/uL (150.0-450.0) 11/14/22 05:23 MPV 7.8 fL (7.4-11.0) 11/14/22 05: Neut % (Auto) 75.7 % (42.0-75.0) H 11/14/22 05: Lymph % (Auto) 13.7 % (21.0-51.0) L 11/14/22 05:23 [place] % (Auto) 7.9 % (0.0-13.0) 11/14/22 05: Eos % (Auto) 2.1 % (0.9-2.9) 11/14/22 05: Baso % (Auto) 0.6 % (0.2-1.0) 11/14/22 05: Neut # (Auto) 7.1 x10^3/uL (2.2-4.8) H 11/14/22 05:23 Lymph # (Auto) 1.3 X10^3/uL (1.3-2.9) 11/14/22 05:23 [place] # (Auto) 0.7 x10^3/uL (0.3-0.8) 11/14/22 05:23 Eos # (Auto) 0.2 x10^3/uL (0.0-0.2) 11/14/22 05: Baso # (Auto) 0.1 X10^3/uL (0.0-0.1) 11/14/22 05: Absolute Nucleated RBC 0.0 /100WBC 11/14/22 05:23 Sodium 141 mmol/L (136-145) 11/14/22 05: Corrected Sodium TNP 11/14/22 05:23 Potassium 3.4 mmol/L (3.5-5.1) L 11/14/22 05:23 Chloride 106 mmol/L (98-107) 11/14/22 05:23 Carbon Dioxide 26.0 mmol/L (21-32) 11/14/22 05:23 BUN 10 mg/dL (7-18) 11/14/22 05:23 Creatinine 0.64 mg/dL (0.70-1.30) L 11/14/22 05:23 Est GFR (MDRD) Af Amer > 60 (>60) 11/14/22 05:23 Est GFR (MDRD) Non-Af > 60 (>60) 11/14/22 05:23 Glucose 90 mg/dL (65-99) 11/14/22 05:23 Calcium 8.3 mg/dL (8.5-10.1) L 11/14/22 05:23 Corrected Calcium 8.9 mg/dL (8.5-10.1) 11/14/22 05:23 Magnesium 1.9 mg/dL (2.0-2.9) L 11/14/22 05:23 Total Bilirubin 0.60 mg/dL (0.2-1.0) 11/14/22 05:23 AST 10 Units/L (15-37) L 11/14/22 05:23 ALT 6 Units/L (12-78) L 11/14/22 05:23 Alkaline Phosphatase 93 Units/L (46-116) 11/14/22 05:23 Creatine Kinase 71 Units/L (39-308) 11/13/22 06:37 Troponin I High Sens 9.6 ng/L (4.0-60.0) 11/13/22 06:37 Total Protein 5.8 g/dL (6.4-8.2) L 11/14/22 05:23 Albumin 3.2 g/dL (3.4-5.0) L 11/14/22 05:23 Globulin 2.6 g/dL (2.5-4.5) 11/14/22 05:23 Albumin/Globulin Ratio 1.2 Ratio (1.1-2.1) 11/14/22 05:23 Specimen Type Clean catch urine 11/13/22 07:20 Urine Color Teri (YELLOW) 11/13/22 07:20 Urine Appearance Slightly hazy (CLEAR) 11/13/22 07:20 Urine pH 5.0 (5.0 - 8.0) 11/13/22 07:20 Ur Specific [place] 1.025 (1.000-1.030) 11/13/22 07:20 Urine Protein 2+ (NEGATIVE) 11/13/22 07:20 Urine Glucose (UA) Negative (NEGATIVE) 11/13/22 07:20 Urine Ketones 3+ (NEGATIVE) 11/13/22 07:20 Urine Blood 1+ (NEGATIVE) 11/13/22 07:20 Urine Nitrite Negative (NEGATIVE) 11/13/22 07:20 Urine Bilirubin 1+ (NEGATIVE) 11/13/22 07:20 Urine Urobilinogen 2+ (NORMAL) 11/13/22 07:20 Ur Leukocyte Esterase 1+ (NEGATIVE) 11/13/22 07:20 Urine RBC 0-2 /HPF (0-3) 11/13/22 07:20 Urine WBC 0-2 /HPF (0-5) 11/13/22 07:20 Ur Squamous Epith Cells Few /HPF (NEGATIVE) 11/13/22 07:20 Calcium Oxalate Crystal Few /HPF (NEGATIVE) 11/13/22 07:20 Urine Bacteria Trace /HPF (NEGATIVE) 11/13/22 07:20 Hyaline Casts Moderate /LPF (NEGATIVE) 11/13/22 07:20 Ur Culture Indicated? No/not indicated 11/13/22 07:20 - Plan (1) UTI (urinary tract infection) Status: Acute Plan: IV HYDRATION. IV ATBX, URINE CULTURE. VERIFY HOME MEDICATION. CXR AND EKG ON ADMISSION. BP CONTROL, US LE RO DVT. PHYSICAL THERAPY CONSULT (2) Parkinson's disease Status: Acute (3) Generalized weakness Status: Acute
[2022-11-15 06:53] LABS: BASOPHILS # (AUTO) 0.1 X10^3/uL (0.0-0.1); BASOPHILS % (AUTO) 0.7 % (0.2-1.0); EOSINOPHILS # (AUTO) 0.3 x10^3/uL (0.0-0.2); EOSINOPHILS % (AUTO) 3.7 % (0.9-2.9); HEMATOCRIT 42.3 % (42.0-54.0); HEMOGLOBIN 14.2 g/dL (13.5-18.0); LYMPHOCYTES # (AUTO) 1.9 X10^3/uL (1.3-2.9); LYMPHOCYTES % (AUTO) 22.9 % (21.0-51.0); MEAN CORPUSCULAR HEMOGLOBIN 29.7 pg (27.0-34.0); MEAN CORPUSCULAR HGB CONC 33.6 g/dL (33.0-35.0); MEAN CORPUSCULAR VOLUME 88.3 fL (80.0-100.0); MONOCYTES # (AUTO) 0.7 x10^3/uL (0.3-0.8); MONOCYTES % (AUTO) 8.9 % (0.0-13.0); NEUTROPHILS # (AUTO) 5.2 x10^3/uL (2.2-4.8); NEUTROPHILS % (AUTO) 63.8 % (42.0-75.0); PLATELET COUNT 225 X10^3/uL (150.0-450.0); RED BLOOD COUNT 4.79 X10^6/uL (4.7-6.0); RED CELL DISTRIBUTION WIDTH 15.3 % (11.6-16.5); WHITE BLOOD COUNT 8.2 X10^3/uL (3.6-10.0)
[2022-11-15 06:59] LABS: ALANINE AMINOTRANSFERASE < 6 Units/L (12-78); ALBUMIN 3.2 g/dL (3.4-5.0); ALKALINE PHOSPHATASE 93 Units/L (46-116); ASPARTATE AMINO TRANSFERASE 11 Units/L (15-37); BLOOD UREA NITROGEN 4 mg/dL (7-18); CALCIUM 8.4 mg/dL (8.5-10.1); CARBON DIOXIDE 28.6 mmol/L (21-32); CHLORIDE 102 mmol/L (98-107); CREATININE 0.59 mg/dL (0.70-1.30); GLUCOSE 85 mg/dL (65-99); POTASSIUM 3.7 mmol/L (3.5-5.1); SODIUM 138 mmol/L (136-145); TOTAL PROTEIN 5.9 g/dL (6.4-8.2); eGFR NON BLACK RACES > 60 (>60)
[2022-11-15] MEDS ORDERED: LEXAPRO ONE (07:38)
[2022-11-15] MEDS ORDERED: CONSULT PHARMACY - POTASSIUM & MAGNESIUM XX SCH (08:00)
[2022-11-15] MEDS: LOVENOX INJ 40 MG SYR SC SCH (09:14)
[2022-11-15] MEDS: K-DUR TAB 20 MEQ PO SCH ×2 (09:14→20:50)
[2022-11-15] MEDS: PROTONIX TAB 40 MG PO SCH (09:14)
[2022-11-15] MEDS: AMANTADINE HCL 100 MG CAP PO SCH ×2 (09:15→20:51)
[2022-11-15] MEDS: MOBIC TAB 15 MG PO SCH (09:15)
[2022-11-15] MEDS: LEXAPRO PO SCH (09:15)
[2022-11-15] MEDS: SINEMET (PLAIN) 25/250 MG PO SCH ×4 (09:16→20:51)
[2022-11-15] MEDS: ROCEPHIN VIAL 1 GRAM 1 G in NS 100 ML IV 100 ML IV SCH (09:30)
[2022-11-15] MEDS: D5 1/2 NS 1,000 ML 1,000 ML IV SCH ×3 (12:48→18:09)
[2022-11-15] MEDS: TORADOL 15 MG VIAL IVP SCH ×2 (15:54→20:51)
--- NOTE | 2022-11-15 18:07 | PCM.PROG ---
Progress Note - Progress Note for Day of Date of Exam: 11/15/22 - Subjective Subjective: PT IS 51 WM, ER ADMISSION WITH WORSENING WEAKNESS AND MULTIPLE FALLS FROM [facility]. PT IS CURRENTLY ON ROCEPHIN FOR UTI WITH CULTURE PENDING. PT HAS PMH OF DVTS. LOWER LIMB US WAS NEGATIVE FOR DVT. PT HAS A WOUND TO BUTTOCKS FROM PRESSURE, REQUIRING WOUND CARE. PT ALSO HAS PREVIOUS HX OF AFIB, WITHOUT SYMPTOMS OF CHEST PAIN AT THIS TIME. PT DOES REPORT SOB ON EXERTION. PT HAD EKG WITHOUT AFIB NOTED. DR COLES ASSESSED HIM WHILE INPATIENT. PT'S WBC IMPROVING WITH IV ATBX THERAPY. PLAN TO CONTINUE WITH PHYSICAL THERAPY AND DISCUSS OPTIONS FOR SWING BED THERAPY. - Past Medical Family Social History Past Med/Fam/Surg Hx: No changes since H&P Allergies: Allergies No Known Drug Allergies Allergy (Verified 11/13/22 05:40) - Review of Systems ROS: No change since H&P - Vital Signs and I&O's Vital Signs: Vital Signs Temperature 98.2 F Temperature 98.2 F Pulse Rate [Bilateral Radial] 78 Pulse Rate [Bilateral Radial] 78 Respiratory Rate 20 Respiratory Rate 20 Respiratory Rate 22 Blood Pressure [Right Arm] 168/88 Blood Pressure [Right Arm] 123/77 O2 Sat by Pulse Oximetry 96 O2 Sat by Pulse Oximetry 95 Intake and Output: Intake & Output 11/13/22 11/14/22 11/15/22 11/16/22 11:59 11:59 11:59 11:59 Intake Total 1906 / 1906 1440 / 1440 680 / 680 Output Total 200 / 200 1425 / 1425 500 / 500 Balance 1706 / 1706 15 / 15 180 / 180 - Physical Exam Oriented: Normal Eyes: Normal Ear: Normal Nose: Normal Throat: Normal Respiratory: Diminished Cardiovascular: Normal : Normal Auscultation: Bowel Sounds: Normal Tenderness: Normal Skin: Decreased Turgur, Wound (STAGE 2 TO RIGHT BUTTOCKS 2CM X 2CM) Musculoskeletal: Motor Deficit, Sensory Deficit Psychiatric: Anxiety Affect: Anxious Speech Pattern: Clear, Appropriate - Laboratory and Diagnostics Result Diagrams: 11/15/22 05:17 11/15/22 05:17 Labs: 11/13/22 19:30 Urine,Clean Catch Urine Culture - Final Laboratory WBC 8.2 X10^3/uL (3.6-10.0) 11/15/22 05:17 RBC 4.79 X10^6/uL (4.7-6.0) 11/15/22 05:17 Hgb 14.2 g/dL (13.5-18.0) 11/15/22 05:17 Hct 42.3 % (42.0-54.0) 11/15/22 05:17 MCV 88.3 fL (80.0-100.0) 11/15/22 05:17 MCH 29.7 pg (27.0-34.0) 11/15/22 05:17 MCHC 33.6 g/dL (33.0-35.0) 11/15/22 05:17 RDW 15.3 % (11.6-16.5) 11/15/22 05:17 Plt Count 225 X10^3/uL (150.0-450.0) 11/15/22 05:17 MPV 8.0 fL (7.4-11.0) 11/15/22 05:17 Neut % (Auto) 63.8 % (42.0-75.0) 11/15/22 05:17 Lymph % (Auto) 22.9 % (21.0-51.0) 11/15/22 05:17 [place] % (Auto) 8.9 % (0.0-13.0) 11/15/22 05:17 Eos % (Auto) 3.7 % (0.9-2.9) H 11/15/22 05:17 Baso % (Auto) 0.7 % (0.2-1.0) 11/15/22 05:17 Neut # (Auto) 5.2 x10^3/uL (2.2-4.8) H 11/15/22 05:17 Lymph # (Auto) 1.9 X10^3/uL (1.3-2.9) 11/15/22 05:17 [place] # (Auto) 0.7 x10^3/uL (0.3-0.8) 11/15/22 05:17 Eos # (Auto) 0.3 x10^3/uL (0.0-0.2) H 11/15/22 05:17 Baso # (Auto) 0.1 X10^3/uL (0.0-0.1) 11/15/22 05:17 Absolute Nucleated RBC 0.1 /100WBC 11/15/22 05:17 Sodium 138 mmol/L (136-145) 11/15/22 05:17 Corrected Sodium TNP 11/15/22 05:17 Potassium 3.7 mmol/L (3.5-5.1) 11/15/22 05:17 Chloride 102 mmol/L (98-107) 11/15/22 05:17 Carbon Dioxide 28.6 mmol/L (21-32) 11/15/22 05:17 BUN 4 mg/dL (7-18) L 11/15/22 05:17 Creatinine 0.59 mg/dL (0.70-1.30) L 11/15/22 05:17 Est GFR (MDRD) Af Amer > 60 (>60) 11/15/22 05:17 Est GFR (MDRD) Non-Af > 60 (>60) 11/15/22 05:17 Glucose 85 mg/dL (65-99) 11/15/22 05:17 Calcium 8.4 mg/dL (8.5-10.1) L 11/15/22 05:17 Corrected Calcium 9.0 mg/dL (8.5-10.1) 11/15/22 05:17 Magnesium 2.2 mg/dL (2.0-2.9) 11/15/22 05:17 Total Bilirubin 0.80 mg/dL (0.2-1.0) 11/15/22 05:17 AST 11 Units/L (15-37) L 11/15/22 05:17 ALT < 6 Units/L (12-78) L 11/15/22 05:17 Alkaline Phosphatase 93 Units/L (46-116) 11/15/22 05:17 Creatine Kinase 71 Units/L (39-308) 11/13/22 06:37 Troponin I High Sens 9.6 ng/L (4.0-60.0) 11/13/22 06:37 Total Protein 5.9 g/dL (6.4-8.2) L 11/15/22 05:17 Albumin 3.2 g/dL (3.4-5.0) L 11/15/22 05:17 Globulin 2.7 g/dL (2.5-4.5) 11/15/22 05:17 Albumin/Globulin Ratio 1.2 Ratio (1.1-2.1) 11/15/22 05:17 Specimen Type Clean catch urine 11/13/22 07:20 Urine Color Teri (YELLOW) 11/13/22 07:20 Urine Appearance Slightly hazy (CLEAR) 11/13/22 07:20 Urine pH 5.0 (5.0 - 8.0) 11/13/22 07:20 Ur Specific [place] 1.025 (1.000-1.030) 11/13/22 07:20 Urine Protein 2+ (NEGATIVE) 11/13/22 07:20 Urine Glucose (UA) Negative (NEGATIVE) 11/13/22 07:20 Urine Ketones 3+ (NEGATIVE) 11/13/22 07:20 Urine Blood 1+ (NEGATIVE) 11/13/22 07:20 Urine Nitrite Negative (NEGATIVE) 11/13/22 07:20 Urine Bilirubin 1+ (NEGATIVE) 11/13/22 07:20 Urine Urobilinogen 2+ (NORMAL) 11/13/22 07:20 Ur Leukocyte Esterase 1+ (NEGATIVE) 11/13/22 07:20 Urine RBC 0-2 /HPF (0-3) 11/13/22 07:20 Urine WBC 0-2 /HPF (0-5) 11/13/22 07:20 Ur Squamous Epith Cells Few /HPF (NEGATIVE) 11/13/22 07:20 Calcium Oxalate Crystal Few /HPF (NEGATIVE) 11/13/22 07:20 Urine Bacteria Trace /HPF (NEGATIVE) 11/13/22 07:20 Hyaline Casts Moderate /LPF (NEGATIVE) 11/13/22 07:20 Ur Culture Indicated? No/not indicated 11/13/22 07:20 - Plan (1) UTI (urinary tract infection) Status: Acute Plan: IV HYDRATION. IV ATBX, URINE CULTURE. VERIFY HOME MEDICATION. CXR AND EKG ON ADMISSION. BP CONTROL, US LE RO DVT. PHYSICAL THERAPY CONSULT (2) Parkinson's disease Status: Acute (3) Generalized weakness Status: Acute (4) Pressure ulcer Status: Acute
[2022-11-16] MEDS: D5 1/2 NS 1,000 ML 1,000 ML IV SCH ×3 (00:52→16:21)
[2022-11-16] MEDS: TORADOL 15 MG VIAL IVP SCH (02:07)
[2022-11-16 06:08] LABS: BASOPHILS # (AUTO) 0.1 X10^3/uL (0.0-0.1); BASOPHILS % (AUTO) 1.1 % (0.2-1.0); EOSINOPHILS # (AUTO) 0.3 x10^3/uL (0.0-0.2); EOSINOPHILS % (AUTO) 2.7 % (0.9-2.9); HEMATOCRIT 42.3 % (42.0-54.0); HEMOGLOBIN 14.4 g/dL (13.5-18.0); LYMPHOCYTES # (AUTO) 1.9 X10^3/uL (1.3-2.9); LYMPHOCYTES % (AUTO) 19.3 % (21.0-51.0); MEAN CORPUSCULAR HEMOGLOBIN 29.9 pg (27.0-34.0); MEAN CORPUSCULAR HGB CONC 34.1 g/dL (33.0-35.0); MEAN CORPUSCULAR VOLUME 87.8 fL (80.0-100.0); MEAN PLATELET VOLUME 7.9 fL (7.4-11.0); MONOCYTES # (AUTO) 0.8 x10^3/uL (0.3-0.8); MONOCYTES % (AUTO) 8.7 % (0.0-13.0); NEUTROPHILS # (AUTO) 6.6 x10^3/uL (2.2-4.8); NEUTROPHILS % (AUTO) 68.2 % (42.0-75.0); PLATELET COUNT 247 X10^3/uL (150.0-450.0); RED BLOOD COUNT 4.82 X10^6/uL (4.7-6.0); WHITE BLOOD COUNT 9.7 X10^3/uL (3.6-10.0)
[2022-11-16 06:33] LABS: ALANINE AMINOTRANSFERASE < 6 Units/L (12-78); ALBUMIN 3.2 g/dL (3.4-5.0); ALKALINE PHOSPHATASE 91 Units/L (46-116); ASPARTATE AMINO TRANSFERASE 12 Units/L (15-37); BLOOD UREA NITROGEN 3 mg/dL (7-18); CALCIUM 8.2 mg/dL (8.5-10.1); CARBON DIOXIDE 27.3 mmol/L (21-32); CHLORIDE 102 mmol/L (98-107); COR CA(FOR HYPOALB) 8.8 mg/dL (8.5-10.1); CREATININE 0.62 mg/dL (0.70-1.30); GLUCOSE 86 mg/dL (65-99); POTASSIUM 3.8 mmol/L (3.5-5.1); SODIUM 136 mmol/L (136-145); eGFR NON BLACK RACES > 60 (>60)
[2022-11-16] MEDS ORDERED: LEXAPRO ONE (08:22)
[2022-11-16] MEDS: AMANTADINE HCL 100 MG CAP PO SCH ×2 (08:59→21:40)
[2022-11-16] MEDS: K-DUR TAB 20 MEQ PO SCH ×2 (08:59→21:34)
[2022-11-16] MEDS: LEXAPRO PO SCH (08:59)
[2022-11-16] MEDS: ROCEPHIN VIAL 1 GRAM 1 G in NS 100 ML IV 100 ML IV SCH (09:00)
[2022-11-16] MEDS: PROTONIX TAB 40 MG PO SCH (09:00)
[2022-11-16] MEDS: LOVENOX INJ 40 MG SYR SC SCH (09:00)
[2022-11-16] MEDS: SINEMET (PLAIN) 25/250 MG PO SCH ×5 (09:00→21:35)
[2022-11-16] MEDS: ZESTRIL TAB 5 MG PO SCH (09:08)
[2022-11-16] MEDS ORDERED: TORADOL 30 MG VIAL IVP ONE (09:12)
[2022-11-16] MEDS ORDERED: TORADOL 30 MG VIAL ONE (11:20)
[2022-11-16] MEDS: MUCINEX DM PO SCH ×2 (11:30→21:35)
--- NOTE | 2022-11-16 13:31 | PCM.PROG ---
Progress Note - Progress Note for Day of Date of Exam: 11/16/22 - Subjective Subjective: PT IS 51 WM, ER ADMISSION WITH WORSENING WEAKNESS AND MULTIPLE FALLS FROM [facility]. PT IS CURRENTLY ON ROCEPHIN FOR UTI WITH CULTURE PENDING. PT HAS PMH OF DVTS. LOWER LIMB US WAS NEGATIVE FOR DVT. PT CO PAIN ALL OVER AND MUSCLE CRAMPS, SPASMS. PT PREVIOUSLY TOOK BACLOFEN AND WE WILL RESTART THAT PRN. PT INSTRUCTED TO NOTIFY NURSE FOR THE NEED FOR PRN MEDICATION. PT HAS A WOUND TO BUTTOCKS FROM PRESSURE, REQUIRING WOUND CARE. PT ALSO HAS PREVIOUS HX OF AFIB, WITHOUT SYMPTOMS OF CHEST PAIN AT THIS TIME. PT DOES REPORT SOB ON EXERTION. PT HAD EKG WITHOUT AFIB NOTED. DR COLES ASSESSED HIM WHILE INPATIENT. PT'S WBC IMPROVING WITH IV ATBX THERAPY. PLAN TO CONTINUE WITH PHY SICAL THERAPY AND DISCUSS OPTIONS FOR SWING BED THERAPY. - Past Medical Family Social History Past Med/Fam/Surg Hx: No changes since H&P Allergies: Allergies No Known Drug Allergies Allergy (Verified 11/13/22 05:40) - Review of Systems ROS: No change since H&P - Vital Signs and I&O's Vital Signs: Vital Signs Temperature 98 F Temperature 97.6 F Pulse Rate [Bilateral Radial] 78 Pulse Rate [Bilateral Radial] 65 Respiratory Rate 22 Respiratory Rate 20 Respiratory Rate 22 Respiratory Rate 22 Blood Pressure [Right Arm] 135/84 Blood Pressure [Right Arm] 148/81 O2 Sat by Pulse Oximetry 94 O2 Sat by Pulse Oximetry 94 Intake and Output: Intake & Output 11/14/22 11/15/22 11/16/22 11/17/22 11:59 11:59 11:59 11:59 Intake Total 1906 / 1906 1440 / 1440 2467 / 2467 Output Total 200 / 200 1425 / 1425 1140 / 1140 Balance 1706 / 1706 15 1327 / 1327 - Physical Exam Oriented: Normal Eyes: Normal Ear: Normal Nose: Normal Throat: Normal Respiratory: Diminished Cardiovascular: Normal : Normal Auscultation: Bowel Sounds: Normal Tenderness: Normal Skin: Decreased Turgur, Wound (STAGE 2 TO RIGHT BUTTOCKS 2CM X 2CM) Musculoskeletal: Motor Deficit, Sensory Deficit Psychiatric: Anxiety Affect: Anxious Speech Pattern: Clear, Appropriate - Laboratory and Diagnostics Result Diagrams: 11/16/22 05:24 11/16/22 05:24 Labs: 11/13/22 19:30 Urine,Clean Catch Urine Culture - Final Laboratory WBC 9.7 X10^3/uL (3.6-10.0) 11/16/22 05:24 RBC 4.82 X10^6/uL (4.7-6.0) 11/16/22 05:24 Hgb 14.4 g/dL (13.5-18.0) 11/16/22 05:24 Hct 42.3 % (42.0-54.0) 11/16/22 05:24 MCV 87.8 fL (80.0-100.0) 11/16/22 05:24 MCH 29.9 pg (27.0-34.0) 11/16/22 05:24 MCHC 34.1 g/dL (33.0-35.0) 11/16/22 05:24 RDW 15.0 % (11.6-16.5) 11/16/22 05:24 Plt Count 247 X10^3/uL (150.0-450.0) 11/16/22 05:24 MPV 7.9 fL (7.4-11.0) 11/16/22 05:24 Neut % (Auto) 68.2 % (42.0-75.0) 11/16/22 05:24 Lymph % (Auto) 19.3 % (21.0-51.0) L 11/16/22 05:24 [place] % (Auto) 8.7 % (0.0-13.0) 11/16/22 05:24 Eos % (Auto) 2.7 % (0.9-2.9) 11/16/22 05:24 Baso % (Auto) 1.1 % (0.2-1.0) H 11/16/22 05:24 Neut # (Auto) 6.6 x10^3/uL (2.2-4.8) H 11/16/22 05:24 Lymph # (Auto) 1.9 X10^3/uL (1.3-2.9) 11/16/22 05:24 [place] # (Auto) 0.8 x10^3/uL (0.3-0.8) 11/16/22 05:24 Eos # (Auto) 0.3 x10^3/uL (0.0-0.2) H 11/16/22 05:24 Baso # (Auto) 0.1 X10^3/uL (0.0-0.1) 11/16/22 05:24 Absolute Nucleated RBC 0.0 /100WBC 11/16/22 05:24 Sodium 136 mmol/L (136-145) 11/16/22 05:24 Corrected Sodium TNP 11/16/22 05:24 Potassium 3.8 mmol/L (3.5-5.1) 11/16/22 05:24 Chloride 102 mmol/L (98-107) 11/16/22 05:24 Carbon Dioxide 27.3 mmol/L (21-32) 11/16/22 05:24 BUN 3 mg/dL (7-18) L 11/16/22 05:24 Creatinine 0.62 mg/dL (0.70-1.30) L 11/16/22 05:24 Est GFR (MDRD) Af Amer > 60 (>60) 11/16/22 05:24 Est GFR (MDRD) Non-Af > 60 (>60) 11/16/22 05:24 Glucose 86 mg/dL (65-99) 11/16/22 05:24 Calcium 8.2 mg/dL (8.5-10.1) L 11/16/22 05:24 Corrected Calcium 8.8 mg/dL (8.5-10.1) 11/16/22 05:24 Magnesium 2.2 mg/dL (2.0-2.9) 11/15/22 05:17 Total Bilirubin 0.70 mg/dL (0.2-1.0) 11/16/22 05:24 AST 12 Units/L (15-37) L 11/16/22 05:24 ALT < 6 Units/L (12-78) L 11/16/22 05:24 Alkaline Phosphatase 91 Units/L (46-116) 11/16/22 05:24 Creatine Kinase 71 Units/L (39-308) 11/13/22 06:37 Troponin I High Sens 9.6 ng/L (4.0-60.0) 11/13/22 06:37 Total Protein 6.0 g/dL (6.4-8.2) L 11/16/22 05:24 Albumin 3.2 g/dL (3.4-5.0) L 11/16/22 05:24 Globulin 2.8 g/dL (2.5-4.5) 11/16/22 05:24 Albumin/Globulin Ratio 1.1 Ratio (1.1-2.1) 11/16/22 05:24 Specimen Type Clean catch urine 11/13/22 07:20 Urine Color Teri (YELLOW) 11/13/22 07:20 Urine Appearance Slightly hazy (CLEAR) 11/13/22 07:20 Urine pH 5.0 (5.0 - 8.0) 11/13/22 07:20 Ur Specific [place] 1.025 (1.000-1.030) 11/13/22 07:20 Urine Protein 2+ (NEGATIVE) 11/13/22 07:20 Urine Glucose (UA) Negative (NEGATIVE) 11/13/22 07:20 Urine Ketones 3+ (NEGATIVE) 11/13/22 07:20 Urine Blood 1+ (NEGATIVE) 11/13/22 07:20 Urine Nitrite Negative (NEGATIVE) 11/13/22 07:20 Urine Bilirubin 1+ (NEGATIVE) 11/13/22 07:20 Urine Urobilinogen 2+ (NORMAL) 11/13/22 07:20 Ur Leukocyte Esterase 1+ (NEGATIVE) 11/13/22 07:20 Urine RBC 0-2 /HPF (0-3) 11/13/22 07:20 Urine WBC 0-2 /HPF (0-5) 11/13/22 07:20 Ur Squamous Epith Cells Few /HPF (NEGATIVE) 11/13/22 07:20 Calcium Oxalate Crystal Few /HPF (NEGATIVE) 11/13/22 07:20 Urine Bacteria Trace /HPF (NEGATIVE) 11/13/22 07:20 Hyaline Casts Moderate /LPF (NEGATIVE) 11/13/22 07:20 Ur Culture Indicated? No/not indicated 11/13/22 07:20 - Plan (1) UTI (urinary tract infection) Status: Acute Plan: IV HYDRATION. IV ATBX, URINE CULTURE. VERIFY HOME MEDICATION. CXR AND EKG ON ADMISSION. BP CONTROL, US LE RO DVT. PHYSICAL THERAPY CONSULT (2) Parkinson's disease Status: Acute (3) Generalized weakness Status: Acute (4) Pressure ulcer Status: Acute
[2022-11-17] MEDS: SINEMET (PLAIN) 25/250 MG PO SCH ×6 (01:10→21:05)
[2022-11-17 06:05] LABS: BASOPHILS # (AUTO) 0.1 X10^3/uL (0.0-0.1); BASOPHILS % (AUTO) 1.1 % (0.2-1.0); EOSINOPHILS # (AUTO) 0.3 x10^3/uL (0.0-0.2); EOSINOPHILS % (AUTO) 3.6 % (0.9-2.9); HEMATOCRIT 42.7 % (42.0-54.0); HEMOGLOBIN 14.1 g/dL (13.5-18.0); LYMPHOCYTES # (AUTO) 1.5 X10^3/uL (1.3-2.9); LYMPHOCYTES % (AUTO) 16.8 % (21.0-51.0); MEAN CORPUSCULAR HEMOGLOBIN 29.3 pg (27.0-34.0); MEAN CORPUSCULAR VOLUME 88.8 fL (80.0-100.0); MEAN PLATELET VOLUME 7.3 fL (7.4-11.0); MONOCYTES # (AUTO) 0.8 x10^3/uL (0.3-0.8); MONOCYTES % (AUTO) 8.6 % (0.0-13.0); NEUTROPHILS # (AUTO) 6.2 x10^3/uL (2.2-4.8); NEUTROPHILS % (AUTO) 69.9 % (42.0-75.0); PLATELET COUNT 217 X10^3/uL (150.0-450.0); RED BLOOD COUNT 4.81 X10^6/uL (4.7-6.0); RED CELL DISTRIBUTION WIDTH 15.3 % (11.6-16.5); WHITE BLOOD COUNT 8.9 X10^3/uL (3.6-10.0)
[2022-11-17 06:23] LABS: ALANINE AMINOTRANSFERASE < 6 Units/L (12-78); ALBUMIN 3.1 g/dL (3.4-5.0); ALKALINE PHOSPHATASE 87 Units/L (46-116); ASPARTATE AMINO TRANSFERASE 8 Units/L (15-37); BLOOD UREA NITROGEN 5 mg/dL (7-18); CARBON DIOXIDE 28.2 mmol/L (21-32); CHLORIDE 102 mmol/L (98-107); COR CA(FOR HYPOALB) 8.7 mg/dL (8.5-10.1); CREATININE 0.66 mg/dL (0.70-1.30); GLUCOSE 89 mg/dL (65-99); MAGNESIUM 2.1 mg/dL (2.0-2.9); POTASSIUM 4.1 mmol/L (3.5-5.1); SODIUM 136 mmol/L (136-145); TOTAL PROTEIN 5.7 g/dL (6.4-8.2); eGFR NON BLACK RACES > 60 (>60)
[2022-11-17] MEDS ORDERED: LEXAPRO ONE (09:20)
[2022-11-17] MEDS: LEXAPRO PO SCH (09:34)
[2022-11-17] MEDS: MUCINEX DM PO SCH ×2 (09:34→21:01)
[2022-11-17] MEDS: ZESTRIL TAB 5 MG PO SCH (09:34)
[2022-11-17] MEDS: AMANTADINE HCL 100 MG CAP PO SCH ×2 (09:35→21:05)
[2022-11-17] MEDS: ROCEPHIN VIAL 1 GRAM 1 G in NS 100 ML IV 100 ML IV SCH (09:35)
[2022-11-17] MEDS: LOVENOX INJ 40 MG SYR SC SCH (09:35)
[2022-11-17] MEDS: K-DUR TAB 20 MEQ PO SCH ×2 (09:35→21:02)
[2022-11-17] MEDS: PROTONIX TAB 40 MG PO SCH (09:35)
[2022-11-17] MEDS: D5 1/2 NS 1,000 ML 1,000 ML IV SCH ×2 (11:21→19:38)
[2022-11-17] MEDS: LIORESAL PO PRN (21:05)
--- NOTE | 2022-11-17 21:14 | PCM.PROG ---
Progress Note - Progress Note for Day of Date of Exam: 11/17/22 - Subjective Subjective: PT IS 51 WM PATIENT OF . HE WAS AN ER ADMISSION WITH WORSENING WEAKNESS AND MULTIPLE FALLS FROM [facility]. HE HAS A PMH OF A-FIB, HTN, MDD, CERVICAL SPINE DDD, [facility], ANXIETY, ARTHRITIS, TONSILLECTOMY. PT IS OBSERVATION STATUS. HE IS CURRENTLY ON ROCEPHIN FOR UTI WITH CULTURE PENDING. PT HAS PMH OF DVTS. LOWER LIMB US WAS NEGATIVE FOR DVT. TODAY, HE IS ALERT AND ORIENTED, LYING IN BED ON MORNING ROUNDS. PT COMPLAINS OF PAIN ALL OVER AND MUSCLE CRAMPS, SPASMS. HE ALSO REPORTS SHORTNESS OF BREATH ON EXERTION. HE DOES ADMIT TO SLIGHT IMPROVEMENT IN SYMPTOMS TODAY, SINCE HIS BACLOFEN WAS RESUMED. ON EXAMINATION, HEART IS REGULAR IN RATE AND RHYTHM. BILATERAL LUNGS ARE NOTED WITH DIMINISHED LUNG SOUNDS THROUGHOUT. ABDOMEN IS ROUND, SOFT, AND NON-TENDER WITH NORMAL BOWEL SOUNDS NOTED IN ALL QUADRANTS. PT HAS A STAGE 2 WOUND TO RIGHT BUTTOCKS FROM PRESSURE, REQUIRING WOUND CARE. NO EDEMA NOTED TO EXTREMITIES. HIS VITALS THIS MORNING ARE: 98.0-69-20-98%-137/63. LABS WERE OBTAINED. WBC 8.9, RBC 4.81, HGB 14.1, HCT 42.7, PLT COUNT 217, SODIUM 136, POTASSIUM 4.1, CHLORIDE 102, BUN 5, CREATININE 0.66, GLUCOSE 89, CALCIUM 8.0, MAGNESIUM 2.1, TOTAL BILI 0.80, AST 8, ALT <6, ALK PHOS 87, TOTAL PROTEIN 5.7, ALBUMIN 3.1. HE IS CURRENTLY RECEIVING D51/2 NS AT 80 ML/HR, ROCEPHIN 1G IV DAILY, LOVENOX 40MG SC DAILY, ACETAMINOPHEN 650MG Q6H PRN, BACLOFEN 10MG TID PRN, MUCINEX DM 1 TAB BID, ZESTRIL 5MG DAILY. HIS HOME MEDICATIONS OF AMANTADINE, SINEMET, AND LEXAPRO WERE RESUMED. PT'S WBC IMPROVING WITH IV ATBX THERAPY. PLAN TO CONTINUE WITH CURRENT PLAN OF CARE AND PHYSICAL THERAPY TODAY. TIME SPENT ON CLINICAL ASSESSMENT, REVIEWING LABS AND IMAGING, DECISION MAKING, AND DOCUMENTATION GREATER THAN 45 MINUTES. - Past Medical Family Social History Past Med/Fam/Surg Hx: No changes since H&P Allergies: Allergies No Known Drug Allergies Allergy (Verified 11/13/22 05:40) - Review of Systems ROS: No change since H&P - Vital Signs and I&O's Vital Signs: Vital Signs Temperature 97.8 F Temperature 97.7 F Pulse Rate [Bilateral Radial] 77 Pulse Rate [Bilateral Radial] 73 Respiratory Rate 20 Respiratory Rate 20 Blood Pressure [Right Arm] 156/91 Blood Pressure [Right Arm] 142/92 O2 Sat by Pulse Oximetry 93 O2 Sat by Pulse Oximetry 94 Intake and Output: Intake & Output 11/15/22 11/16/22 11/17/22 11/18/22 11:59 11:59 11:59 11:59 Intake Total 1440 / 1440 2467 / 2467 3742 / 3742 1147 / 1147 Output Total 1425 / 1425 1140 / 1140 2675 / 2675 1100 / 1100 Balance 1327 / 1327 1067 / 1067 47 / 47 - Physical Exam Oriented: Normal Eyes: Normal Ear: Normal Nose: Normal Throat: Normal Respiratory: Diminished Cardiovascular: Normal : Normal Auscultation: Bowel Sounds: Normal Palpation: Normal Tenderness: Normal Skin: Decreased Turgur, Wound (STAGE 2 TO RIGHT BUTTOCKS 2CM X 2CM) Musculoskeletal: Motor Deficit, Sensory Deficit Psychiatric: Anxiety Affect: Anxious Speech Pattern: Clear, Appropriate - Laboratory and Diagnostics Result Diagrams: 11/17/22 05:43 11/17/22 05:43 Labs: 11/13/22 19:30 Urine,Clean Catch Urine Culture - Final Laboratory WBC 8.9 X10^3/uL (3.6-10.0) 11/17/22 05:43 RBC 4.81 X10^6/uL (4.7-6.0) 11/17/22 05:43 Hgb 14.1 g/dL (13.5-18.0) 11/17/22 05:43 Hct 42.7 % (42.0-54.0) 11/17/22 05:43 MCV 88.8 fL (80.0-100.0) 11/17/22 05:43 MCH 29.3 pg (27.0-34.0) 11/17/22 05:43 MCHC 33.0 g/dL (33.0-35.0) 11/17/22 05:43 RDW 15.3 % (11.6-16.5) 11/17/22 05:43 Plt Count 217 X10^3/uL (150.0-450.0) 11/17/22 05:43 MPV 7.3 fL (7.4-11.0) L 11/17/22 05:43 Neut % (Auto) 69.9 % (42.0-75.0) 11/17/22 05:43 Lymph % (Auto) 16.8 % (21.0-51.0) L 11/17/22 05:43 [place] % (Auto) 8.6 % (0.0-13.0) 11/17/22 05:43 Eos % (Auto) 3.6 % (0.9-2.9) H 11/17/22 05:43 Baso % (Auto) 1.1 % (0.2-1.0) H 11/17/22 05:43 Neut # (Auto) 6.2 x10^3/uL (2.2-4.8) H 11/17/22 05:43 Lymph # (Auto) 1.5 X10^3/uL (1.3-2.9) 11/17/22 05:43 [place] # (Auto) 0.8 x10^3/uL (0.3-0.8) 11/17/22 05:43 Eos # (Auto) 0.3 x10^3/uL (0.0-0.2) H 11/17/22 05:43 Baso # (Auto) 0.1 X10^3/uL (0.0-0.1) 11/17/22 05:43 Absolute Nucleated RBC 0.0 /100WBC 11/17/22 05:43 Sodium 136 mmol/L (136-145) 11/17/22 05:43 Corrected Sodium TNP 11/17/22 05:43 Potassium 4.1 mmol/L (3.5-5.1) 11/17/22 05:43 Chloride 102 mmol/L (98-107) 11/17/22 05:43 Carbon Dioxide 28.2 mmol/L (21-32) 11/17/22 05:43 BUN 5 mg/dL (7-18) L 11/17/22 05:43 Creatinine 0.66 mg/dL (0.70-1.30) L 11/17/22 05:43 Est GFR (MDRD) Af Amer > 60 (>60) 11/17/22 05:43 Est GFR (MDRD) Non-Af > 60 (>60) 11/17/22 05:43 Glucose 89 mg/dL (65-99) 11/17/22 05:43 Calcium 8.0 mg/dL (8.5-10.1) L 11/17/22 05:43 Corrected Calcium 8.7 mg/dL (8.5-10.1) 11/17/22 05:43 Magnesium 2.1 mg/dL (2.0-2.9) 11/17/22 05:43 Total Bilirubin 0.80 mg/dL (0.2-1.0) 11/17/22 05:43 AST 8 Units/L (15-37) L 11/17/22 05:43 ALT < 6 Units/L (12-78) L 11/17/22 05:43 Alkaline Phosphatase 87 Units/L (46-116) 11/17/22 05:43 Creatine Kinase 71 Units/L (39-308) 11/13/22 06:37 Troponin I High Sens 9.6 ng/L (4.0-60.0) 11/13/22 06:37 Total Protein 5.7 g/dL (6.4-8.2) L 11/17/22 05:43 Albumin 3.1 g/dL (3.4-5.0) L 11/17/22 05:43 Globulin 2.6 g/dL (2.5-4.5) 11/17/22 05:43 Albumin/Globulin Ratio 1.2 Ratio (1.1-2.1) 11/17/22 05:43 Specimen Type Clean catch urine 11/13/22 07:20 Urine Color [place]i (YELLOW) 11/13/22 07:20 Urine Appearance Slightly hazy (CLEAR) 11/13/22 07:20 Urine pH 5.0 (5.0 - 8.0) 11/13/22 07:20 Ur Specific [place] 1.025 (1.000-1.030) 11/13/22 07:20 Urine Protein 2+ (NEGATIVE) 11/13/22 07:20 Urine Glucose (UA) Negative (NEGATIVE) 11/13/22 07:20 Urine Ketones 3+ (NEGATIVE) 11/13/22 07:20 Urine Blood 1+ (NEGATIVE) 11/13/22 07:20 Urine Nitrite Negative (NEGATIVE) 11/13/22 07:20 Urine Bilirubin 1+ (NEGATIVE) 11/13/22 07:20 Urine Urobilinogen 2+ (NORMAL) 11/13/22 07:20 Ur Leukocyte Esterase 1+ (NEGATIVE) 11/13/22 07:20 Urine RBC 0-2 /HPF (0-3) 11/13/22 07:20 Urine WBC 0-2 /HPF (0-5) 11/13/22 07:20 Ur Squamous Epith Cells Few /HPF (NEGATIVE) 11/13/22 07:20 Calcium Oxalate Crystal Few /HPF (NEGATIVE) 11/13/22 07:20 Urine Bacteria Trace /HPF (NEGATIVE) 11/13/22 07:20 Hyaline Casts Moderate /LPF (NEGATIVE) 11/13/22 07:20 Ur Culture Indicated? No/not indicated 11/13/22 07:20 - Plan (1) UTI (urinary tract infection) Status: Acute Qualifiers: Urinary tract infection type: acute cystitis Hematuria presence: without hematuria Qualified Code(s): N30.00 - Acute cystitis without hematuria Plan: IV HYDRATION, IV ATBX, URINE CULTURE, BP CONTROL, PHYSICAL THERAPY (2) Pressure ulcer Status: Acute Qualifiers: Pressure injury location: buttock Pressure injury stage: stage 2 Laterality: right Qualified Code(s): L89.312 - Pressure ulcer of right buttock, stage 2 (3) Generalized weakness Status: Acute (4) Adult failure to thrive Status: Acute (5) Parkinson's disease Status: Chronic Plan: STABLE. RESUME SINEMET (6) GERD (gastroesophageal reflux disease) Status: Chronic Qualifiers: Esophagitis presence: esophagitis presence not specified Qualified Code(s): K21.9 - Gastro-esophageal reflux disease without esophagitis Plan: STABLE. CONTINUE PROTONIX (7) HTN (hypertension) Status: Chronic Qualifiers: Hypertension type: primary hypertension Qualified Code(s): I10 - Essential (primary) hypertension Plan: STABLE. CONTINUE LISINOPRIL
[2022-11-18] MEDS: SINEMET (PLAIN) 25/250 MG PO SCH ×6 (01:33→21:06)
[2022-11-18] MEDS: TYLENOL 325 MG TAB PO PRN ×2 (03:17→13:49)
[2022-11-18] MEDS ORDERED: LEXAPRO ONE (08:09)
[2022-11-18] MEDS: ROCEPHIN VIAL 1 GRAM 1 G in NS 100 ML IV 100 ML IV SCH (08:34)
[2022-11-18] MEDS: MUCINEX DM PO SCH ×2 (08:34→21:04)
[2022-11-18] MEDS: LOVENOX INJ 40 MG SYR SC SCH (08:34)
[2022-11-18] MEDS: PROTONIX TAB 40 MG PO SCH (08:35)
[2022-11-18] MEDS: LEXAPRO PO SCH (08:35)
[2022-11-18] MEDS: ZESTRIL TAB 5 MG PO SCH (08:35)
[2022-11-18] MEDS: K-DUR TAB 20 MEQ PO SCH ×2 (08:35→21:04)
[2022-11-18] MEDS: AMANTADINE HCL 100 MG CAP PO SCH ×2 (08:35→21:05)
[2022-11-18] MEDS: D5 1/2 NS 1,000 ML 1,000 ML IV SCH ×2 (08:45→21:12)
[2022-11-18] MEDS: LIORESAL PO PRN (08:45)
--- NOTE | 2022-11-18 10:24 | PCM.PROG ---
Progress Note - Progress Note for Day of Date of Exam: 11/18/22 - Subjective Subjective: IS A 51 WM PATIENT OF . HE WAS AN ER ADMISSION WITH WORSENING WEAKNESS AND MULTIPLE FALLS FROM [facility]. HE HAS A PMH OF A-FIB, HTN, MDD, CERVICAL SPINE DDD, [facility], ANXIETY, ARTHRITIS, TONSILLECTOMY. PT IS OBSERVATION STATUS. HE IS CURRENTLY ON ROCEPHIN FOR UTI WITH CULTURE PENDING. PT HAS PMH OF DVTS. LOWER LIMB US WAS NEGATIVE FOR DVT. TODAY, HE IS ALERT AND ORIENTED, LYING IN BED ON MORNING ROUNDS. PT COMPLAINS OF PAIN ALL OVER AND MUSCLE CRAMPS, SPASMS. HE ALSO REPORTS SHORTNESS OF BREATH ON EXERTION. HE DOES ADMIT TO SLIGHT IMPROVEMENT IN SYMPTOMS TODAY. ON EXAMINATION, HEART IS REGULAR IN RATE AND RHYTHM. BILATERAL LUNGS ARE NOTED WITH DIMINISHED LUNG SOUNDS THROUGHOUT. ABDOMEN IS ROUND, SOFT, AND NON-TENDER WITH NORMAL BOWEL SOUNDS NOTED IN ALL QUADRANTS. PT HAS A STAGE 2 WOUND TO RIGHT BUTTOCKS FROM PRESSURE, REQUIRING WOUND CARE. NO EDEMA NOTED TO EXTREMITIES. HIS VITALS THIS MORNING ARE: 97.1-75-18-95%-126/77. LABS WERE OBTAINED AND REVEALED: WBC 9.3, RBC 5.02, HGB 14.7, HCT 44.3, PLT COUNT 214, SODIUM 135, POTASSIUM 4.0, CHLORIDE 101, BUN 5, CREATININE 0.66, GLUCOSE 93, CALCIUM 8.0, TOTAL BILI 0.50, AST 12, ALT <6, ALK PHOS 91, TOTAL PROTEIN 6.1, ALBUMIN 3.1. HE IS CURRENTLY RECEIVING D51/2 NS AT 80 ML/HR, ROCEPHIN 1G IV DAILY, LOVENOX 40MG SC DAILY, ACETAMINOPHEN 650MG Q6H PRN, BACLOFEN 10MG TID PRN, MUCINEX DM 1 TAB BID, ZESTRIL 5MG DAILY. HIS HOME MEDICATIONS OF AMANTADINE, SINEMET, AND LEXAPRO WERE RESUMED. PT'S WBC IMPROVING WITH IV ATBX THERAPY. WE PLAN TO CONTINUE WITH CURRENT PLAN OF CARE AND PHYSICAL THERAPY TODAY. OTHERWISE, WE WILL FOLLOW UP WITH AM LABS AND OR JULIO WILL SEE HIM IN THE MORNING. TIME SPENT ON CLINICAL ASSESSMENT, REVIEWING LABS AND IMAGING, DECISION MAKING, AND DOCUMENTATION GREATER THAN 45 MINUTES. - Past Medical Family Social History Past Med/Fam/Surg Hx: No changes since H&P Allergies: Allergies No Known Drug Allergies Allergy (Verified 11/13/22 05:40) - Review of Systems ROS: No change since H&P - Vital Signs and I&O's Vital Signs: Vital Signs Temperature 97.1 F Temperature 98.2 F Pulse Rate [Bilateral Radial] 75 Pulse Rate [Bilateral Radial] 82 Respiratory Rate 18 Respiratory Rate 19 Respiratory Rate 20 Respiratory Rate 19 Blood Pressure [Right Arm] 126/77 Blood Pressure [Right Arm] 131/89 O2 Sat by Pulse Oximetry 95 O2 Sat by Pulse Oximetry 95 Intake and Output: Intake & Output 11/15/22 11/16/22 11/17/22 11/18/22 11:59 11:59 11:59 11:59 Intake Total 1440 / 1440 2467 / 2467 3742 / 3742 3396 / 3396 Output Total 1425 / 1425 1140 / 1140 2675 / 2675 1900 / 1900 Balance 1327 / 1327 1067 / 1067 1496 / 1496 - Physical Exam Oriented: Normal Eyes: Normal Ear: Normal Nose: Normal Throat: Normal Respiratory: Diminished Cardiovascular: Normal : Normal Auscultation: Bowel Sounds: Normal Tenderness: Normal Skin: Decreased Turgur, Wound (STAGE 2 TO RIGHT BUTTOCKS 2CM X 2CM) Musculoskeletal: Motor Deficit, Sensory Deficit Psychiatric: Anxiety Affect: Anxious Speech Pattern: Clear, Appropriate - Laboratory and Diagnostics Result Diagrams: 11/18/22 10:34 11/18/22 10:34 Labs: 11/13/22 19:30 Urine,Clean Catch Urine Culture - Final Laboratory WBC 8.9 X10^3/uL (3.6-10.0) 11/17/22 05:43 RBC 4.81 X10^6/uL (4.7-6.0) 11/17/22 05:43 Hgb 14.1 g/dL (13.5-18.0) 11/17/22 05:43 Hct 42.7 % (42.0-54.0) 11/17/22 05:43 MCV 88.8 fL (80.0-100.0) 11/17/22 05:43 MCH 29.3 pg (27.0-34.0) 11/17/22 05:43 MCHC 33.0 g/dL (33.0-35.0) 11/17/22 05:43 RDW 15.3 % (11.6-16.5) 11/17/22 05:43 Plt Count 217 X10^3/uL (150.0-450.0) 11/17/22 05:43 MPV 7.3 fL (7.4-11.0) L 11/17/22 05:43 Neut % (Auto) 69.9 % (42.0-75.0) 11/17/22 05:43 Lymph % (Auto) 16.8 % (21.0-51.0) L 11/17/22 05:43 [place] % (Auto) 8.6 % (0.0-13.0) 11/17/22 05:43 Eos % (Auto) 3.6 % (0.9-2.9) H 11/17/22 05:43 Baso % (Auto) 1.1 % (0.2-1.0) H 11/17/22 05:43 Neut # (Auto) 6.2 x10^3/uL (2.2-4.8) H 11/17/22 05:43 Lymph # (Auto) 1.5 X10^3/uL (1.3-2.9) 11/17/22 05:43 [place] # (Auto) 0.8 x10^3/uL (0.3-0.8) 11/17/22 05:43 Eos # (Auto) 0.3 x10^3/uL (0.0-0.2) H 11/17/22 05:43 Baso # (Auto) 0.1 X10^3/uL (0.0-0.1) 11/17/22 05:43 Absolute Nucleated RBC 0.0 /100WBC 11/17/22 05:43 Sodium 136 mmol/L (136-145) 11/17/22 05:43 Corrected Sodium TNP 11/17/22 05:43 Potassium 4.1 mmol/L (3.5-5.1) 11/17/22 05:43 Chloride 102 mmol/L (98-107) 11/17/22 05:43 Carbon Dioxide 28.2 mmol/L (21-32) 11/17/22 05:43 BUN 5 mg/dL (7-18) L 11/17/22 05:43 Creatinine 0.66 mg/dL (0.70-1.30) L 11/17/22 05:43 Est GFR (MDRD) Af Amer > 60 (>60) 11/17/22 05:43 Est GFR (MDRD) Non-Af > 60 (>60) 11/17/22 05:43 Glucose 89 mg/dL (65-99) 11/17/22 05:43 Calcium 8.0 mg/dL (8.5-10.1) L 11/17/22 05:43 Corrected Calcium 8.7 mg/dL (8.5-10.1) 11/17/22 05:43 Magnesium 2.1 mg/dL (2.0-2.9) 11/17/22 05:43 Total Bilirubin 0.80 mg/dL (0.2-1.0) 11/17/22 05:43 AST 8 Units/L (15-37) L 11/17/22 05:43 ALT < 6 Units/L (12-78) L 11/17/22 05:43 Alkaline Phosphatase 87 Units/L (46-116) 11/17/22 05:43 Creatine Kinase 71 Units/L (39-308) 11/13/22 06:37 Troponin I High Sens 9.6 ng/L (4.0-60.0) 11/13/22 06:37 Total Protein 5.7 g/dL (6.4-8.2) L 11/17/22 05:43 Albumin 3.1 g/dL (3.4-5.0) L 11/17/22 05:43 Globulin 2.6 g/dL (2.5-4.5) 11/17/22 05:43 Albumin/Globulin Ratio 1.2 Ratio (1.1-2.1) 11/17/22 05:43 Specimen Type Clean catch urine 11/13/22 07:20 Urine Color [place] (YELLOW) 11/13/22 07:20 Urine Appearance Slightly hazy (CLEAR) 11/13/22 07:20 Urine pH 5.0 (5.0 - 8.0) 11/13/22 07:20 Ur Specific [place] 1.025 (1.000-1.030) 11/13/22 07:20 Urine Protein 2+ (NEGATIVE) 11/13/22 07:20 Urine Glucose (UA) Negative (NEGATIVE) 11/13/22 07:20 Urine Ketones 3+ (NEGATIVE) 11/13/22 07:20 Urine Blood 1+ (NEGATIVE) 11/13/22 07:20 Urine Nitrite Negative (NEGATIVE) 11/13/22 07:20 Urine Bilirubin 1+ (NEGATIVE) 11/13/22 07:20 Urine Urobilinogen 2+ (NORMAL) 11/13/22 07:20 Ur Leukocyte Esterase 1+ (NEGATIVE) 11/13/22 07:20 Urine RBC 0-2 /HPF (0-3) 11/13/22 07:20 Urine WBC 0-2 /HPF (0-5) 11/13/22 07:20 Ur Squamous Epith Cells Few /HPF (NEGATIVE) 11/13/22 07:20 Calcium Oxalate Crystal Few /HPF (NEGATIVE) 11/13/22 07:20 Urine Bacteria Trace /HPF (NEGATIVE) 11/13/22 07:20 Hyaline Casts Moderate /LPF (NEGATIVE) 11/13/22 07:20 Ur Culture Indicated? No/not indicated 11/13/22 07:20 - Plan (1) UTI (urinary tract infection) Status: Acute Qualifiers: Urinary tract infection type: acute cystitis Hematuria presence: without hematuria Qualified Code(s): N30.00 - Acute cystitis without hematuria Plan: IV HYDRATION, IV ATBX, URINE CULTURE, BP CONTROL, PHYSICAL THERAPY (2) Pressure ulcer Status: Acute Qualifiers: Pressure injury location: buttock Pressure injury stage: stage 2 Laterality: right Qualified Code(s): L89.312 - Pressure ulcer of right buttock, stage 2 (3) Generalized weakness Status: Acute (4) Adult failure to thrive Status: Acute (5) Parkinson's disease Status: Chronic Plan: STABLE. RESUME SINEMET (6) GERD (gastroesophageal reflux disease) Status: Chronic Qualifiers: Esophagitis presence: esophagitis presence not specified Qualified Code(s): K21.9 - Gastro-esophageal reflux disease without esophagitis Plan: STABLE. CONTINUE PROTONIX (7) HTN (hypertension) Status: Chronic Qualifiers: Hypertension type: primary hypertension Qualified Code(s): I10 - Essential (primary) hypertension Plan: STABLE. CONTINUE LISINOPRIL
[2022-11-18 10:46] LABS: BASOPHILS # (AUTO) 0.1 X10^3/uL (0.0-0.1); BASOPHILS % (AUTO) 1.1 % (0.2-1.0); EOSINOPHILS # (AUTO) 0.3 x10^3/uL (0.0-0.2); HEMATOCRIT 44.3 % (42.0-54.0); HEMOGLOBIN 14.7 g/dL (13.5-18.0); LYMPHOCYTES # (AUTO) 1.4 X10^3/uL (1.3-2.9); LYMPHOCYTES % (AUTO) 15.4 % (21.0-51.0); MEAN CORPUSCULAR HEMOGLOBIN 29.4 pg (27.0-34.0); MEAN CORPUSCULAR HGB CONC 33.3 g/dL (33.0-35.0); MEAN CORPUSCULAR VOLUME 88.2 fL (80.0-100.0); MEAN PLATELET VOLUME 7.5 fL (7.4-11.0); MONOCYTES # (AUTO) 0.7 x10^3/uL (0.3-0.8); MONOCYTES % (AUTO) 7.6 % (0.0-13.0); NEUTROPHILS # (AUTO) 6.8 x10^3/uL (2.2-4.8); NEUTROPHILS % (AUTO) 72.9 % (42.0-75.0); PLATELET COUNT 214 X10^3/uL (150.0-450.0); RED BLOOD COUNT 5.02 X10^6/uL (4.7-6.0); WHITE BLOOD COUNT 9.3 X10^3/uL (3.6-10.0)
[2022-11-18 10:56] LABS: ALANINE AMINOTRANSFERASE < 6 Units/L (12-78); ALBUMIN 3.1 g/dL (3.4-5.0); ALKALINE PHOSPHATASE 91 Units/L (46-116); ASPARTATE AMINO TRANSFERASE 12 Units/L (15-37); BLOOD UREA NITROGEN 5 mg/dL (7-18); CHLORIDE 101 mmol/L (98-107); COR CA(FOR HYPOALB) 8.7 mg/dL (8.5-10.1); CREATININE 0.66 mg/dL (0.70-1.30); GLUCOSE 93 mg/dL (65-99); SODIUM 135 mmol/L (136-145); TOTAL PROTEIN 6.1 g/dL (6.4-8.2); eGFR NON BLACK RACES > 60 (>60)
[2022-11-18 20:16] VITALS: RESP 20
[2022-11-19] MEDS: SINEMET (PLAIN) 25/250 MG PO SCH ×5 (01:03→18:52)
[2022-11-19] MEDS: LIORESAL PO PRN ×2 (01:21→14:19)
[2022-11-19] MEDS: D5 1/2 NS 1,000 ML 1,000 ML IV SCH ×3 (04:20→14:00)
[2022-11-19 05:25] LABS: BASOPHILS # (AUTO) 0.1 X10^3/uL (0.0-0.1); BASOPHILS % (AUTO) 0.9 % (0.2-1.0); EOSINOPHILS # (AUTO) 0.3 x10^3/uL (0.0-0.2); EOSINOPHILS % (AUTO) 3.2 % (0.9-2.9); HEMATOCRIT 44.7 % (42.0-54.0); HEMOGLOBIN 15.2 g/dL (13.5-18.0); LYMPHOCYTES # (AUTO) 1.7 X10^3/uL (1.3-2.9); LYMPHOCYTES % (AUTO) 16.1 % (21.0-51.0); MEAN CORPUSCULAR HEMOGLOBIN 29.9 pg (27.0-34.0); MEAN CORPUSCULAR HGB CONC 34.1 g/dL (33.0-35.0); MEAN CORPUSCULAR VOLUME 87.7 fL (80.0-100.0); MEAN PLATELET VOLUME 8.3 fL (7.4-11.0); MONOCYTES # (AUTO) 0.9 x10^3/uL (0.3-0.8); MONOCYTES % (AUTO) 8.6 % (0.0-13.0); NEUTROPHILS # (AUTO) 7.4 x10^3/uL (2.2-4.8); NEUTROPHILS % (AUTO) 71.2 % (42.0-75.0); PLATELET COUNT 238 X10^3/uL (150.0-450.0); RED CELL DISTRIBUTION WIDTH 15.5 % (11.6-16.5); WHITE BLOOD COUNT 10.3 X10^3/uL (3.6-10.0)
[2022-11-19 05:38] LABS: ALANINE AMINOTRANSFERASE < 6 Units/L (12-78); ALBUMIN 3.4 g/dL (3.4-5.0); ALKALINE PHOSPHATASE 97 Units/L (46-116); ASPARTATE AMINO TRANSFERASE 12 Units/L (15-37); BLOOD UREA NITROGEN 6 mg/dL (7-18); CALCIUM 8.6 mg/dL (8.5-10.1); CARBON DIOXIDE 27.7 mmol/L (21-32); CHLORIDE 100 mmol/L (98-107); CREATININE 0.66 mg/dL (0.70-1.30); GLUCOSE 85 mg/dL (65-99); POTASSIUM 4.2 mmol/L (3.5-5.1); SODIUM 136 mmol/L (136-145); TOTAL PROTEIN 6.4 g/dL (6.4-8.2); eGFR NON BLACK RACES > 60 (>60)
[2022-11-19] MEDS ORDERED: LEXAPRO ONE (08:19)
[2022-11-19] MEDS: MUCINEX DM PO SCH (08:34)
[2022-11-19] MEDS: PROTONIX TAB 40 MG PO SCH (08:35)
[2022-11-19] MEDS: LEXAPRO PO SCH (08:35)
[2022-11-19] MEDS: K-DUR TAB 20 MEQ PO SCH (08:35)
[2022-11-19] MEDS: ZESTRIL TAB 5 MG PO SCH (08:35)
[2022-11-19] MEDS: LOVENOX INJ 40 MG SYR SC SCH (08:36)
[2022-11-19] MEDS: ROCEPHIN VIAL 1 GRAM 1 G in NS 100 ML IV 100 ML IV SCH (08:36)
[2022-11-19] MEDS: AMANTADINE HCL 100 MG CAP PO SCH (08:48)
[2022-11-19 13:27] VITALS: BP 127/73; PULSE 71; TEMP 98.4; O2SAT 97
== END 2022-11-19 14:59 | disposition swing bed (61) ==
LOC: U 05:31 → ER 05:31 → U 10:56 → MED/SURG 12:47
PROVIDERS: ADMIT Internal Medicine; ATTEND Internal Medicine
DX: L89.312 Pressure ulcer of right buttock, stage 2; R26.89 Other abnormalities of gait and mobility; R29.6 Repeated falls; B96.29 Other Escherichia coli [E. coli] as the cause of diseases classified elsewhere; R60.0 Localized edema; R53.1 Weakness; I10 Essential (primary) hypertension; B95.61 Methicillin susceptible Staphylococcus aureus infection as the cause of diseases classified elsewhere; R62.7 Adult failure to thrive; N30.00 Acute cystitis without hematuria; R06.02 Shortness of breath; B96.4 Proteus (mirabilis) (morganii) as the cause of diseases classified elsewhere; M50.30 Other cervical disc degeneration, unspecified cervical region; R07.89 Other chest pain; G20 Parkinson's disease; K21.9 Gastro-esophageal reflux disease without esophagitis

== ENCOUNTER 2022-11-19 15:00 | Inpatient (IN) ==
--- NOTE | 2022-11-19 18:09 | DR.UPDATE ---
H&P Update Prescription drug monitoring program results: PDMP reviewed and no concerns identified (H&P REVIEWED FROM 11/13/22 AND PDMP REVIEWED WITHOUT CHANGES OR CONCERNS) H&P Reviewed: Yes Any changes to H&P?: No Patient was examined?: Yes
[2022-11-19] MEDS: SINEMET (PLAIN) 25/250 MG PO SCH ×2 (18:55→21:06)
[2022-11-19] MEDS: MUCINEX DM PO SCH (21:05)
[2022-11-19] MEDS: TYLENOL 325 MG TAB PO PRN (21:05)
[2022-11-19] MEDS: K-DUR TAB 20 MEQ PO SCH (21:05)
[2022-11-19] MEDS: AMANTADINE HCL 100 MG CAP PO SCH (21:06)
[2022-11-19] MEDS: LIORESAL PO PRN (22:34)
[2022-11-20] MEDS: SINEMET (PLAIN) 25/250 MG PO SCH ×6 (01:04→21:07)
[2022-11-20] MEDS ORDERED: NS 1,000 ML IV 1,000 ML ONE (02:24)
[2022-11-20] MEDS ORDERED: LEXAPRO ONE (08:47)
[2022-11-20] MEDS: PROTONIX TAB 40 MG PO SCH (09:09)
[2022-11-20] MEDS: ZESTRIL TAB 5 MG PO SCH (09:10)
[2022-11-20] MEDS: MUCINEX DM PO SCH ×2 (09:10→21:07)
[2022-11-20] MEDS: LEXAPRO PO SCH (09:10)
[2022-11-20] MEDS: K-DUR TAB 20 MEQ PO SCH ×2 (09:10→21:07)
[2022-11-20] MEDS: AMANTADINE HCL 100 MG CAP PO SCH ×2 (09:11→21:07)
[2022-11-20] MEDS: ROCEPHIN VIAL 1 GRAM 1 G in NS 100 ML IV 100 ML IV SCH (09:11)
[2022-11-20] MEDS: LOVENOX INJ 40 MG SYR SC SCH (09:11)
[2022-11-20] MEDS: LIORESAL PO PRN (12:45)
--- NOTE | 2022-11-20 13:12 | PT/OTEVAL ---
PT/OT OBJECTIVES - HISTORY Prescription: OT consult Diagnosis: Generalized Weakness, FTT Precautions: Fall Risk, Parkinson's Disease, Decreased Skin Integrity PMH: Parkinson's Disease, Arthritis, HTN, AFib, MDD, Anxiety, Hx DVT, Tonsillectiony, Neck Surgery, Hernia Repair, L Leg Sx Prior Level of Function: Assistance Required History of Present Illness: Generalized weakness, PD, and FTT - COGNITION Mental Status: Alert, Oriented, Name, Date, Place, Purpose Communication Status: Verbal Ability to Follow Directions: 2 Step Memory Loss: None Affect: Calm - PAIN Generalized Pain Scale: No Pain Comments: Distal BLEs (knees down) "Achy, sore, sharp" Reports chronic in nature - BED MOBILITY Rolling: Minimal - TRANSFERS Supine to Sit: Minimal Sit to Stand: Minimal Sit or Stand Pivot: Minimal Sit or Stand Pivot Comment: With RW - ADL'S Feeding: Supervision Grooming: Moderate Grooming: LROM in B shoulders Upper Body ADL: Moderate Lower Body ADL: Moderate - BALANCE Static Sitting: Fair Standing: Fair Dynamic Sitting: Fair Standing: Fair Balance Comment: Pt leans to the L and back when sitting. Needs VC and TC for sitting midline. - NEUROMOTOR/SENSATION Cyrus. Lower Ext Sensation: WFL Coordination: Impaired Cyrus. Upper Ext Sensation: WFL Coordination: Impaired - HAND DOMINANCE Extremity Function: Hand Dominance: Right - ROM Left UE ROM: Impaired Muscle Tone: WFL Right UE ROM: Impaired Muscle Tone: WFL Bilateral UE ROM: Impaired Muscle Tone: WFL - STRENGTH Left UE Strength Number: 2 Right UE Strength Number: 2 Bilateral UE Strength Number: 2 - TREATMENT Date: 11/20/22 Time: 11:30 Treatment Type: Evaluation Treatment Provided: Therapeutic Activities, Therapeutic Excersises, Other - TOTAL TREATMENT TIME Total Time: 75 - POST ASSESSMENT Post Assessment Comment: Pt was agreeable to particiapte with skilled OT to assess CLOF. Pt supine to sit with touch/min A. Pt sat EOB and completed BUE exe. Pt required consistent VC and TC for midline sitting. Pt noted to lean to the L and backwards. Pt completed 2 set of 10 of bicep curls, shoulder press and shoulder flex. Pt given RBs after each set. Pt noted with LROM in B shoulders, also noted with incoordinated movement of the U, over shooting target and diffiuclty with crossing midline. Pt donned gown with min A and min VC. Pt donned shoes with min A and time. Pt STS from bed with min A and mod VC with RW. Pt transferred to recliner with RW and touch A with min VC for safety. Pt was left up in recliner with call light within reach. - EXIT DISPOSITION Exit Position: CHAIR Call light in reach: Yes PT/OT ASSESSMENT - PT Problem List: Other - OT Problem List: Decreased Mobility ADL's, Decreased Safety Aware, Decreased Dressing, Decreased Bathing, Decreased Grooming, Decreased UE Strength - OT GOALS Assisted Goals Days: 20 Mobility for ADL's: Pt to increase functional ADL transfer with RW and supv A Safety Awareness: Pt to increase safety awareness to G Dressing: Pt to improve LB dressing with min A Bathing: Pt to complete overall bathing with min A Grooming: Pt to complete grooming task at sink side with supv A Upper Ext. Strength/Use: Pt to improve UB strength to 4/5 Short Term Goals Days: 10 Mobility for ADL's: Pt to complete STS with supv A and AE as needed Dressing: Pt to improve UB dressing with supv A Bathing: Pt to complete LB bathing with min A Grooming: Pt to complete grooming with min A Upper Ext. Strength/Use: Pt to improve UB strength to 3/5 - PATIENT GOALS Patient/Family Goals: To get better and go home Goals Discussed with Patient/Family: Yes Rehabilitation Potential: Good to meet stated goals Justification for Potential: Facilitate highest level of function and safe discharge planning. Weakness and Barriers: None - PLAN Suggested Treatment Plan: Therapeutic Activity, Self Care Training, Neuro Re- education, Therapeutic Ex with HEP, Patient Education - FREQUENCY AND DURATION PT: - OT: 5x a week for 20 days Expected Continuation of Care at Discharge: Skilled Care Facility, Determined on Progress
--- NOTE | 2022-11-20 14:11 | PT/OTEVAL ---
PT/OT OBJECTIVES - HISTORY Prescription: PT Consult Diagnosis: Parkinson's Disease, Weakness Precautions: Fall Risk, Decrease Skin Integrity PMH: Parkinson's Disease, Arthritis, HTN, AFib, MDD, Anxiety, Hx DVT, Tonsillectiony, Neck Surgery, Hernia Repair, L Leg Sx Complexities/Comorbities: Parkinson's Disease Prior Level of Function: Assistance Required Other: Per pt & sister- pt resides in single story home with 5 steps to enter (BHR but unable to reach both at the same time) with sister. Sister performs all household tasks and chores and meal prep activities. Pt states that until ~3 weeks ago he was able to perform all mobility tasks within home by himself with sister providing supervision as needed. Then pt began with progressive weakness and was only staying in the recliner chair (where he has slept for the last year). Pt using walker for gait tasks within home. DME: SPC, FWW, Rollator, BSC & Built in Shower Bench. Reports that they have a wheelchair at home but it was their grandfathers and the brakes do not work. History of Present Illness: Pt is a 51 year old male who was initially admitted to [facility] on 11/13/22 due to progressive weakness and failure to thrive. Pt was treated medically and still unable to care for himself at home and would benefit from participation in skilled therapy services to address his deficits (decreased strength, coordination, balance & overall independence with functional mobility tasks) and facilitate safe discharge planning back to home environment and safe discharge planning. - COGNITION Mental Status: Alert, Oriented, Name, Place Communication Status: Verbal Ability to Follow Directions: 2 Step Memory Loss: None Affect: Appropriate - PAIN Lower Generalized Pain Scale: Discomfort (1-2) Comments: RLE during prolonged standing activities - BED MOBILITY Rolling: Supervision Scooting: Minimal Bridging: Minimal - TRANSFERS Supine to Sit: Minimal Sit to Stand: Moderate Sit or Stand Pivot: Moderate Safety (requires cues for:): Hand Placement Precaution - BALANCE Static Sitting: Good Standing: Fair Balance Comment: Fair- Dynamic Sitting: Fair Standing: Poor Balance Comment: Poor+ in standing - NEUROMOTOR/SENSATION Cyrus. Lower Ext Sensation: WFL Coordination: Impaired Proprioception: Impaired - HAND DOMINANCE Extremity Function: Hand Dominance: Right - ROM Bilateral LE ROM: WFL Muscle Tone: WFL - STRENGTH Right LE Strength Number: 3 Other comment: 3-/5 Left LE Strength Number: 3 Other comment: 3+/5 - GAIT Pt. ambulates how many feet?: 6 Amount of Assistance Required: Minimal Type of Assistive Device: Rolling Walker - TREATMENT Date: 11/20/22 Time: 09:45 Treatment Type: Evaluation Treatment Provided: Therapeutic Activities, Therapeutic Excersises - TOTAL TREATMENT TIME Total Time: 45 - POST ASSESSMENT Post Assessment Comment: Pt was found seated in chair in room and agreeable to participation in PT services. Pt reports that he is feeling better this date with no pain at rest. Pt able to perform sit to stand transfers from recliner chair in room with mod assist (lower surface) requiring UE assist and increased time to complete. Pt performed 3 total during course of session. Pt was able to ambulate 6ft with FWW with min assist for balance and cues for proper foot placement and walker approximation to increase safety. Pt instructed in and completed the following exercises to promote increased strength, balance and overall independence with mobility tasks including: Standing (BUE support and touch to partial assist for balance): B Marches, B Hip Flexion & B Heel Raises (1 x 10 of each); Seated: LAQs (1 x 10); Supine: B Heel Slides, B Isometric Hip Adduction against Pillow, B Hip Abduction & Bridges (1 x 10 of each). Therapeutic rest breaks as needed throughout with min/mod cues for full ROM in appropriate planes. Pt requested to rest in bed following session. Pt required min assist for sitting to supine and for repositioning in bed. Pt is motivated to participate and would benefit from continued PT Services to address remaining deficits and facilitate highest level of function and safe discharge planning. - EXIT DISPOSITION Exit Position: BED Call light in reach: Yes PT/OT ASSESSMENT - PT Problem List: Decreased Bed Mobility, Decreased Transfers, Decreased Gait, Decreased Balance, Decreased Safety, Decreased LE Strength - PT GOALS Short Term Goals Days: 10 Mobility: Pt will perform bed mobility tasks with supervision Transfers: Pt with perform functional transfers with touch assist Gait: Pt will ambulate 50ft with FWW with touch assist Balance: Pt will increase static standing balance to fair+/good- Jail Goals Days: 20 Mobility: Pt will perform bed mobility tasks with mod I Transfers: Pt will perform functional transfers with mod I Gait: Pt will ambulate 75ft wtih FWW with supervision Balance: Pt will increase dynamic standing balance to fair+ ROM/Strength: Pt will increase BLE strength by 1 MMT grade - OT GOALS Jail Goals Days: 20 Mobility for ADL's: Pt to increase functional ADL transfer with RW and supv A Safety Awareness: Pt to increase safety awareness to G Dressing: Pt to improve LB dressing with min A Bathing: Pt to complete overall bathing with min A Grooming: Pt to complete grooming task at sink side with supv A Upper Ext. Strength/Use: Pt to improve UB strength to 4/5 Short Term Goals Days: 10 Mobility for ADL's: Pt to complete STS with supv A and AE as needed Dressing: Pt to improve UB dressing with supv A Bathing: Pt to complete LB bathing with min A Grooming: Pt to complete grooming with min A Upper Ext. Strength/Use: Pt to improve UB strength to 3/5 - PATIENT GOALS Patient/Family Goals: "I want to get my strength back so I can go home" Goals Discussed with Patient/Family: Yes Rehabilitation Potential: Good to meet stated goals Justification for Potential: Facilitate highest level of function and safe discharge planning Weakness and Barriers: None - PLAN Suggested Treatment Plan: Bed Mobility Training, Therapeutic Activity, Gait Training, Neuro Re-education, Therapeutic Ex with HEP, Patient Education, Family Education - FREQUENCY AND DURATION PT: 5x per week x 20 days Expected Continuation of Care at Discharge: Home Health Anticipated Equipment Needs: Pending progress, pt may require wheelchair.
[2022-11-21] MEDS: SINEMET (PLAIN) 25/250 MG PO SCH ×6 (01:06→21:02)
[2022-11-21 05:07] LABS: BASOPHILS # (AUTO) 0.2 X10^3/uL (0.0-0.1); BASOPHILS % (AUTO) 1.3 % (0.2-1.0); EOSINOPHILS # (AUTO) 0.3 x10^3/uL (0.0-0.2); EOSINOPHILS % (AUTO) 2.7 % (0.9-2.9); HEMATOCRIT 45.3 % (42.0-54.0); HEMOGLOBIN 15.1 g/dL (13.5-18.0); LYMPHOCYTES # (AUTO) 1.5 X10^3/uL (1.3-2.9); LYMPHOCYTES % (AUTO) 12.1 % (21.0-51.0); MEAN CORPUSCULAR HEMOGLOBIN 29.7 pg (27.0-34.0); MEAN CORPUSCULAR HGB CONC 33.5 g/dL (33.0-35.0); MEAN CORPUSCULAR VOLUME 88.8 fL (80.0-100.0); MONOCYTES # (AUTO) 0.9 x10^3/uL (0.3-0.8); MONOCYTES % (AUTO) 7.7 % (0.0-13.0); NEUTROPHILS # (AUTO) 9.1 x10^3/uL (2.2-4.8); NEUTROPHILS % (AUTO) 76.2 % (42.0-75.0); PLATELET COUNT 256 X10^3/uL (150.0-450.0); RED CELL DISTRIBUTION WIDTH 15.5 % (11.6-16.5)
[2022-11-21 05:19] LABS: ALANINE AMINOTRANSFERASE < 6 Units/L (12-78); ALBUMIN 3.4 g/dL (3.4-5.0); ALKALINE PHOSPHATASE 98 Units/L (46-116); ASPARTATE AMINO TRANSFERASE 11 Units/L (15-37); BLOOD UREA NITROGEN 8 mg/dL (7-18); CALCIUM 8.5 mg/dL (8.5-10.1); CARBON DIOXIDE 27.7 mmol/L (21-32); CHLORIDE 103 mmol/L (98-107); CREATININE 0.73 mg/dL (0.70-1.30); GLUCOSE 90 mg/dL (65-99); POTASSIUM 4.4 mmol/L (3.5-5.1); SODIUM 137 mmol/L (136-145); TOTAL PROTEIN 6.3 g/dL (6.4-8.2); eGFR NON BLACK RACES > 60 (>60)
[2022-11-21] MEDS ORDERED: LEXAPRO ONE (08:12)
[2022-11-21] MEDS: LOVENOX INJ 40 MG SYR SC SCH (09:06)
[2022-11-21] MEDS: AMANTADINE HCL 100 MG CAP PO SCH ×2 (09:06→20:41)
[2022-11-21] MEDS: PROTONIX TAB 40 MG PO SCH (09:07)
[2022-11-21] MEDS: ZESTRIL TAB 5 MG PO SCH (09:07)
[2022-11-21] MEDS: K-DUR TAB 20 MEQ PO SCH ×2 (09:07→20:41)
[2022-11-21] MEDS: LIORESAL PO PRN ×2 (09:07→20:41)
[2022-11-21] MEDS: MUCINEX DM PO SCH ×2 (09:07→20:40)
[2022-11-21] MEDS: SINEMET (PLAIN) 10/100 MG PO PRN (09:07)
[2022-11-21] MEDS: LEXAPRO PO SCH (11:19)
[2022-11-21] MEDS: ROCEPHIN VIAL 1 GRAM 1 G in NS 100 ML IV 100 ML IV SCH (11:26)
--- NOTE | 2022-11-21 17:45 | PCM.PROG ---
Progress Note - Progress Note for Day of Date of Exam: 11/21/22 - Past Medical Family Social History Past Med/Fam/Surg Hx: No changes since H&P Allergies: Allergies No Known Drug Allergies Allergy (Verified 11/13/22 05:40) - Review of Systems ROS: No change since H&P - Vital Signs and I&O's Intake and Output: Intake & Output 11/19/22 11/20/22 11/21/22 11/22/22 11:59 11:59 11:59 11:59 Intake Total 1771 / 1771 2031 / 2031 360 / 360 Output Total 1750 / 1750 870 / 870 850 / 850 Balance 1162 / 1162 -490 / -490 - Physical Exam Oriented: Normal Eyes: Normal Ear: Normal Nose: Normal Throat: Normal Respiratory: Wheezes Cardiovascular: Normal : Normal Auscultation: Bowel Sounds: Normal Palpation: Normal Tenderness: Normal Skin: Decreased Turgur Musculoskeletal: Right, Left, Leg, Back:Lumbar, Motor Deficit Psychiatric: Normal Mood Description: Calm Speech Pattern: Clear, Appropriate - Laboratory and Diagnostics Result Diagrams: 11/21/22 04:25 11/21/22 04:25 Labs: Laboratory WBC 12.0 X10^3/uL (3.6-10.0) H 11/21/22 04:25 RBC 5.10 X10^6/uL (4.7-6.0) 11/21/22 04:25 Hgb 15.1 g/dL (13.5-18.0) 11/21/22 04:25 Hct 45.3 % (42.0-54.0) 11/21/22 04:25 MCV 88.8 fL (80.0-100.0) 11/21/22 04:25 MCH 29.7 pg (27.0-34.0) 11/21/22 04:25 MCHC 33.5 g/dL (33.0-35.0) 11/21/22 04:25 RDW 15.5 % (11.6-16.5) 11/21/22 04:25 Plt Count 256 X10^3/uL (150.0-450.0) 11/21/22 04:25 MPV 8.0 fL (7.4-11.0) 11/21/22 04:25 Neut % (Auto) 76.2 % (42.0-75.0) H 11/21/22 04:25 Lymph % (Auto) 12.1 % (21.0-51.0) L 11/21/22 04:25 [place] % (Auto) 7.7 % (0.0-13.0) 11/21/22 04:25 Eos % (Auto) 2.7 % (0.9-2.9) 11/21/22 04:25 Baso % (Auto) 1.3 % (0.2-1.0) H 11/21/22 04:25 Neut # (Auto) 9.1 x10^3/uL (2.2-4.8) H 11/21/22 04:25 Lymph # (Auto) 1.5 X10^3/uL (1.3-2.9) 11/21/22 04:25 [place] # (Auto) 0.9 x10^3/uL (0.3-0.8) H 11/21/22 04:25 Eos # (Auto) 0.3 x10^3/uL (0.0-0.2) H 11/21/22 04:25 Baso # (Auto) 0.2 X10^3/uL (0.0-0.1) H 11/21/22 04:25 Absolute Nucleated RBC 0.0 /100WBC 11/21/22 04:25 Sodium 137 mmol/L (136-145) 11/21/22 04:25 Corrected Sodium TNP 11/21/22 04:25 Potassium 4.4 mmol/L (3.5-5.1) 11/21/22 04:25 Chloride 103 mmol/L (98-107) 11/21/22 04:25 Carbon Dioxide 27.7 mmol/L (21-32) 11/21/22 04:25 BUN 8 mg/dL (7-18) 11/21/22 04:25 Creatinine 0.73 mg/dL (0.70-1.30) 11/21/22 04:25 Est GFR (MDRD) Af Amer > 60 (>60) 11/21/22 04:25 Est GFR (MDRD) Non-Af > 60 (>60) 11/21/22 04:25 Glucose 90 mg/dL (65-99) 11/21/22 04:25 Calcium 8.5 mg/dL (8.5-10.1) 11/21/22 04:25 Corrected Calcium TNP 11/21/22 04:25 Total Bilirubin 0.40 mg/dL (0.2-1.0) 11/21/22 04:25 AST 11 Units/L (15-37) L 11/21/22 04:25 ALT < 6 Units/L (12-78) L 11/21/22 04:25 Alkaline Phosphatase 98 Units/L (46-116) 11/21/22 04:25 Total Protein 6.3 g/dL (6.4-8.2) L 11/21/22 04:25 Albumin 3.4 g/dL (3.4-5.0) 11/21/22 04:25 Globulin 2.9 g/dL (2.5-4.5) 11/21/22 04:25 Albumin/Globulin Ratio 1.2 Ratio (1.1-2.1) 11/21/22 04:25 - Plan (1) Generalized weakness Status: Acute Plan: CONTINUE IV ROCEPHIN. DAILY WOUND CARE. PHYSICAL THERAPY. CONTINUE CURRENT MEDICATION. BP CONTROL (2) UTI (urinary tract infection) Status: Acute Qualifiers: (3) Parkinson's disease Status: Chronic (4) Pressure ulcer Status: Acute Qualifiers: (5) Muscle spasm Status: Acute
--- NOTE | 2022-11-21 18:40 | RAD ---
HISTORYchest congestionSTUDYCHEST, 1 VIEWCOMPARISONAugust 2, 2022FINDINGSA tracheostomy tube is noted. There are low lung volumes with left basilar subsegmental atelectasis. The trachea is midline. The cardiac silhouette is borderline enlarged when considering AP technique. No lobar mass or consolidation is identified. There is no effusion or pneumothorax. The bony thorax grossly unremarkable.IMPRESSIONLeft basilar scar versus subsegmental atelectasis and otherwise no acute cardiopulmonary disease.Electronically signed by: GERMAN DUCKWORTH (Nov 21, 2022 18:38:46)
[2022-11-21] MEDS: TYLENOL 325 MG TAB PO PRN (23:21)
[2022-11-22] MEDS: SINEMET (PLAIN) 25/250 MG PO SCH ×5 (01:12→21:18)
[2022-11-22] MEDS ORDERED: LEXAPRO ONE (09:22)
[2022-11-22] MEDS: LOVENOX INJ 40 MG SYR SC SCH (09:34)
[2022-11-22] MEDS: AMANTADINE HCL 100 MG CAP PO SCH ×2 (09:34→21:19)
[2022-11-22] MEDS: ZESTRIL TAB 5 MG PO SCH (09:35)
[2022-11-22] MEDS: K-DUR TAB 20 MEQ PO SCH ×2 (09:35→21:17)
[2022-11-22] MEDS: PROTONIX TAB 40 MG PO SCH (09:35)
[2022-11-22] MEDS: MUCINEX DM PO SCH ×2 (09:36→21:18)
[2022-11-22] MEDS: LEXAPRO PO SCH (09:36)
[2022-11-22] MEDS: ROCEPHIN VIAL 1 GRAM 1 G in NS 100 ML IV 100 ML IV SCH (09:36)
[2022-11-22 10:43] VITALS: BMI 36.9
[2022-11-22] MEDS: LIORESAL PO PRN (18:55)
[2022-11-22] MEDS: JUVEN PO SCH (22:06)
[2022-11-23] MEDS: SINEMET (PLAIN) 25/250 MG PO SCH ×6 (01:15→21:10)
[2022-11-23] MEDS ORDERED: LEXAPRO ONE (09:31)
[2022-11-23] MEDS: PROTONIX TAB 40 MG PO SCH (09:39)
[2022-11-23] MEDS: ZESTRIL TAB 5 MG PO SCH (09:40)
[2022-11-23] MEDS: LEXAPRO PO SCH (09:40)
[2022-11-23] MEDS: K-DUR TAB 20 MEQ PO SCH ×2 (09:40→20:59)
[2022-11-23] MEDS: LOVENOX INJ 40 MG SYR SC SCH (09:41)
[2022-11-23] MEDS: MUCINEX DM PO SCH ×2 (09:41→20:59)
[2022-11-23] MEDS: ROCEPHIN VIAL 1 GRAM 1 G in NS 100 ML IV 100 ML IV SCH (09:41)
[2022-11-23] MEDS: AMANTADINE HCL 100 MG CAP PO SCH ×2 (10:47→21:10)
[2022-11-23] MEDS: JUVEN PO SCH ×2 (10:48→21:10)
[2022-11-23] MEDS: LIORESAL PO PRN (14:28)
[2022-11-23] MEDS: TYLENOL 325 MG TAB PO PRN (14:28)
[2022-11-24] MEDS: SINEMET (PLAIN) 25/250 MG PO SCH ×6 (01:17→21:23)
[2022-11-24] MEDS: LIORESAL PO PRN ×2 (01:19→21:18)
[2022-11-24] MEDS: TYLENOL 325 MG TAB PO PRN ×2 (01:22→21:15)
[2022-11-24 05:30] LABS: BASOPHILS # (AUTO) 0.1 X10^3/uL (0.0-0.1); BASOPHILS % (AUTO) 1.2 % (0.2-1.0); EOSINOPHILS # (AUTO) 0.2 x10^3/uL (0.0-0.2); EOSINOPHILS % (AUTO) 2.3 % (0.9-2.9); HEMATOCRIT 46.7 % (42.0-54.0); HEMOGLOBIN 15.6 g/dL (13.5-18.0); LYMPHOCYTES # (AUTO) 1.6 X10^3/uL (1.3-2.9); LYMPHOCYTES % (AUTO) 16.5 % (21.0-51.0); MEAN CORPUSCULAR HEMOGLOBIN 29.7 pg (27.0-34.0); MEAN CORPUSCULAR HGB CONC 33.5 g/dL (33.0-35.0); MEAN CORPUSCULAR VOLUME 88.8 fL (80.0-100.0); MEAN PLATELET VOLUME 8.2 fL (7.4-11.0); MONOCYTES # (AUTO) 0.8 x10^3/uL (0.3-0.8); MONOCYTES % (AUTO) 8.4 % (0.0-13.0); NEUTROPHILS # (AUTO) 6.8 x10^3/uL (2.2-4.8); NEUTROPHILS % (AUTO) 71.6 % (42.0-75.0); PLATELET COUNT 249 X10^3/uL (150.0-450.0); RED BLOOD COUNT 5.26 X10^6/uL (4.7-6.0); RED CELL DISTRIBUTION WIDTH 15.6 % (11.6-16.5); WHITE BLOOD COUNT 9.5 X10^3/uL (3.6-10.0)
[2022-11-24 05:50] LABS: ALANINE AMINOTRANSFERASE < 6 Units/L (12-78); ALBUMIN 3.6 g/dL (3.4-5.0); ALKALINE PHOSPHATASE 100 Units/L (46-116); ASPARTATE AMINO TRANSFERASE 9 Units/L (15-37); BLOOD UREA NITROGEN 14 mg/dL (7-18); CALCIUM 8.8 mg/dL (8.5-10.1); CARBON DIOXIDE 28.9 mmol/L (21-32); CHLORIDE 104 mmol/L (98-107); CREATININE 0.75 mg/dL (0.70-1.30); GLUCOSE 90 mg/dL (65-99); POTASSIUM 4.4 mmol/L (3.5-5.1); SODIUM 140 mmol/L (136-145); TOTAL PROTEIN 6.8 g/dL (6.4-8.2); eGFR NON BLACK RACES > 60 (>60)
[2022-11-24] MEDS ORDERED: LEXAPRO ONE (08:22)
[2022-11-24] MEDS ORDERED: NS 100 ML IV 100 ML ONE (08:27)
[2022-11-24] MEDS: ROCEPHIN VIAL 1 GRAM 1 G in NS 100 ML IV 100 ML IV SCH (08:59)
[2022-11-24] MEDS: LOVENOX INJ 40 MG SYR SC SCH (08:59)
[2022-11-24] MEDS: K-DUR TAB 20 MEQ PO SCH (09:00)
[2022-11-24] MEDS: PROTONIX TAB 40 MG PO SCH (09:00)
[2022-11-24] MEDS: AMANTADINE HCL 100 MG CAP PO SCH ×2 (09:11→21:23)
[2022-11-24] MEDS: LEXAPRO PO SCH (09:11)
[2022-11-24] MEDS: JUVEN PO SCH ×2 (09:12→21:24)
[2022-11-24] MEDS: MUCINEX DM PO SCH ×2 (09:12→21:15)
[2022-11-24] MEDS: ZESTRIL TAB 5 MG PO SCH (09:12)
[2022-11-24] MEDS: SINEMET (PLAIN) 10/100 MG PO PRN (21:14)
[2022-11-25] MEDS: SINEMET (PLAIN) 25/250 MG PO SCH ×6 (02:20→22:30)
[2022-11-25] MEDS ORDERED: LEXAPRO ONE (07:42)
[2022-11-25] MEDS: JUVEN PO SCH ×2 (09:12→21:00)
[2022-11-25] MEDS: LEXAPRO PO SCH (09:14)
[2022-11-25] MEDS: ZESTRIL TAB 5 MG PO SCH (09:14)
[2022-11-25] MEDS: LOVENOX INJ 40 MG SYR SC SCH (09:15)
[2022-11-25] MEDS: PROTONIX TAB 40 MG PO SCH (09:15)
[2022-11-25] MEDS: MUCINEX DM PO SCH ×2 (09:15→21:33)
[2022-11-25] MEDS: ROCEPHIN VIAL 1 GRAM 1 G in NS 100 ML IV 100 ML IV SCH (09:15)
[2022-11-25] MEDS: K-DUR TAB 20 MEQ PO SCH (09:19)
[2022-11-25] MEDS: AMANTADINE HCL 100 MG CAP PO SCH ×2 (14:05→21:34)
[2022-11-25] MEDS: TYLENOL 325 MG TAB PO PRN (21:33)
[2022-11-25] MEDS: LIORESAL PO PRN (21:33)
[2022-11-26] MEDS: SINEMET (PLAIN) 25/250 MG PO SCH ×6 (02:43→21:10)
[2022-11-26 05:05] LABS: BASOPHILS # (AUTO) 0.1 X10^3/uL (0.0-0.1); BASOPHILS % (AUTO) 1.2 % (0.2-1.0); EOSINOPHILS # (AUTO) 0.4 x10^3/uL (0.0-0.2); EOSINOPHILS % (AUTO) 3.3 % (0.9-2.9); HEMATOCRIT 46.9 % (42.0-54.0); HEMOGLOBIN 15.7 g/dL (13.5-18.0); LYMPHOCYTES # (AUTO) 1.8 X10^3/uL (1.3-2.9); LYMPHOCYTES % (AUTO) 16.3 % (21.0-51.0); MEAN CORPUSCULAR HEMOGLOBIN 29.9 pg (27.0-34.0); MEAN CORPUSCULAR HGB CONC 33.6 g/dL (33.0-35.0); MEAN CORPUSCULAR VOLUME 88.9 fL (80.0-100.0); MEAN PLATELET VOLUME 8.1 fL (7.4-11.0); MONOCYTES # (AUTO) 0.9 x10^3/uL (0.3-0.8); MONOCYTES % (AUTO) 8.6 % (0.0-13.0); NEUTROPHILS # (AUTO) 7.6 x10^3/uL (2.2-4.8); NEUTROPHILS % (AUTO) 70.6 % (42.0-75.0); PLATELET COUNT 245 X10^3/uL (150.0-450.0); RED BLOOD COUNT 5.27 X10^6/uL (4.7-6.0); RED CELL DISTRIBUTION WIDTH 14.8 % (11.6-16.5); WHITE BLOOD COUNT 10.8 X10^3/uL (3.6-10.0)
[2022-11-26 05:15] LABS: ALANINE AMINOTRANSFERASE < 6 Units/L (12-78); ALBUMIN 3.6 g/dL (3.4-5.0); ALKALINE PHOSPHATASE 104 Units/L (46-116); ASPARTATE AMINO TRANSFERASE 8 Units/L (15-37); BLOOD UREA NITROGEN 17 mg/dL (7-18); CALCIUM 9.1 mg/dL (8.5-10.1); CARBON DIOXIDE 33.7 mmol/L (21-32); CHLORIDE 102 mmol/L (98-107); CREATININE 0.86 mg/dL (0.70-1.30); GLUCOSE 90 mg/dL (65-99); POTASSIUM 4.3 mmol/L (3.5-5.1); SODIUM 139 mmol/L (136-145); TOTAL PROTEIN 6.6 g/dL (6.4-8.2); eGFR NON BLACK RACES > 60 (>60)
[2022-11-26] MEDS ORDERED: LEXAPRO ONE (08:08)
[2022-11-26] MEDS: ROCEPHIN VIAL 1 GRAM 1 G in NS 100 ML IV 100 ML IV SCH (08:49)
[2022-11-26] MEDS: LEXAPRO PO SCH (08:50)
[2022-11-26] MEDS: K-DUR TAB 20 MEQ PO SCH (08:50)
[2022-11-26] MEDS: ZESTRIL TAB 5 MG PO SCH (08:50)
[2022-11-26] MEDS: PROTONIX TAB 40 MG PO SCH (08:50)
[2022-11-26] MEDS: MUCINEX DM PO SCH ×2 (08:50→20:13)
[2022-11-26] MEDS: LOVENOX INJ 40 MG SYR SC SCH (08:50)
[2022-11-26] MEDS: AMANTADINE HCL 100 MG CAP PO SCH ×2 (08:56→20:13)
[2022-11-26] MEDS: JUVEN PO SCH ×2 (08:56→20:13)
[2022-11-26] MEDS: SINEMET (PLAIN) 10/100 MG PO PRN (20:13)
[2022-11-26] MEDS: TYLENOL 325 MG TAB PO PRN (23:31)
[2022-11-27] MEDS: LIORESAL PO PRN ×2 (02:23→14:03)
[2022-11-27] MEDS: SINEMET (PLAIN) 25/250 MG PO SCH ×6 (02:23→21:00)
[2022-11-27] MEDS ORDERED: BUTT CREAM (COMPOUND) TOP PRN (02:56)
[2022-11-27] MEDS ORDERED: BUTT CREAM (COMPOUND) ONE (02:58)
[2022-11-27] MEDS ORDERED: LEXAPRO ONE (09:10)
[2022-11-27] MEDS: PROTONIX TAB 40 MG PO SCH (09:17)
[2022-11-27] MEDS: LEXAPRO PO SCH (09:17)
[2022-11-27] MEDS: K-DUR TAB 20 MEQ PO SCH (09:17)
[2022-11-27] MEDS: MUCINEX DM PO SCH ×2 (09:17→21:01)
[2022-11-27] MEDS: ZESTRIL TAB 5 MG PO SCH (09:17)
[2022-11-27] MEDS: ROCEPHIN VIAL 1 GRAM 1 G in NS 100 ML IV 100 ML IV SCH (09:18)
[2022-11-27] MEDS: LOVENOX INJ 40 MG SYR SC SCH (09:18)
[2022-11-27] MEDS: AMANTADINE HCL 100 MG CAP PO SCH ×2 (10:18→21:00)
[2022-11-27] MEDS: JUVEN PO SCH ×2 (10:40→21:01)
[2022-11-27] MEDS: TYLENOL 325 MG TAB PO PRN (14:08)
--- NOTE | 2022-11-27 18:00 | PCM.PROG ---
Progress Note - Progress Note for Day of Date of Exam: 11/26/22 - Subjective Subjective: He is a 51-year-old white male on swing bed therapy for rehab and IV antibiotics for a wound to his buttocks area. The patient has advanced Parkinson's and has had increased weakness and lower extremity muscle atrophy with multiple falls. He has pretty much been confined to a chair at home. He is currently on Rocephin 1 g IV daily. His labs are on routine swing bed protocol, which is about every three days. - Past Medical Family Social History Past Med/Fam/Surg Hx: No changes since H&P Allergies: Allergies No Known Drug Allergies Allergy (Verified 11/13/22 05:40) - Review of Systems ROS: No change since H&P - Vital Signs and I&O's Vital Signs: Vital Signs Respiratory Rate 20 Respiratory Rate 20 Intake and Output: Intake & Output 11/25/22 11/26/22 11/27/22 11/28/22 11:59 11:59 11:59 11:59 Intake Total 2779 / 2779 1800 / 1800 1330 / 1330 840 / 840 Output Total 550 / 550 1765 / 1765 1200 / 1200 700 / 700 Balance 2229 / 2229 35 / 35 130 / 130 140 / 140 - Physical Exam Oriented: Normal Eyes: Normal Ear: Normal Nose: Normal Throat: Normal Respiratory: Wheezes Cardiovascular: Normal : Normal Auscultation: Bowel Sounds: Normal Tenderness: Normal Skin: Decreased Turgur, Wound Musculoskeletal: Right, Left, Leg, Back:Lumbar, Motor Deficit Psychiatric: Normal Mood Description: Calm Speech Pattern: Clear, Appropriate - Laboratory and Diagnostics Result Diagrams: 11/26/22 04:28 11/26/22 04:28 Labs: Laboratory WBC 10.8 X10^3/uL (3.6-10.0) H 11/26/22 04:28 RBC 5.27 X10^6/uL (4.7-6.0) 11/26/22 04:28 Hgb 15.7 g/dL (13.5-18.0) 11/26/22 04:28 Hct 46.9 % (42.0-54.0) 11/26/22 04:28 MCV 88.9 fL (80.0-100.0) 11/26/22 04:28 MCH 29.9 pg (27.0-34.0) 11/26/22 04:28 MCHC 33.6 g/dL (33.0-35.0) 11/26/22 04:28 RDW 14.8 % (11.6-16.5) 11/26/22 04:28 Plt Count 245 X10^3/uL (150.0-450.0) 11/26/22 04:28 MPV 8.1 fL (7.4-11.0) 11/26/22 04:28 Neut % (Auto) 70.6 % (42.0-75.0) 11/26/22 04:28 Lymph % (Auto) 16.3 % (21.0-51.0) L 11/26/22 04:28 [place] % (Auto) 8.6 % (0.0-13.0) 11/26/22 04:28 Eos % (Auto) 3.3 % (0.9-2.9) H 11/26/22 04:28 Baso % (Auto) 1.2 % (0.2-1.0) H 11/26/22 04:28 Neut # (Auto) 7.6 x10^3/uL (2.2-4.8) H 11/26/22 04:28 Lymph # (Auto) 1.8 X10^3/uL (1.3-2.9) 11/26/22 04:28 [place] # (Auto) 0.9 x10^3/uL (0.3-0.8) H 11/26/22 04:28 Eos # (Auto) 0.4 x10^3/uL (0.0-0.2) H 11/26/22 04:28 Baso # (Auto) 0.1 X10^3/uL (0.0-0.1) 11/26/22 04:28 Absolute Nucleated RBC 0.1 /100WBC 11/26/22 04:28 Sodium 139 mmol/L (136-145) 11/26/22 04:28 Corrected Sodium TNP 11/26/22 04:28 Potassium 4.3 mmol/L (3.5-5.1) 11/26/22 04:28 Chloride 102 mmol/L (98-107) 11/26/22 04:28 Carbon Dioxide 33.7 mmol/L (21-32) H 11/26/22 04:28 BUN 17 mg/dL (7-18) 11/26/22 04:28 Creatinine 0.86 mg/dL (0.70-1.30) 11/26/22 04:28 Est GFR (MDRD) Af Amer > 60 (>60) 11/26/22 04:28 Est GFR (MDRD) Non-Af > 60 (>60) 11/26/22 04:28 Glucose 90 mg/dL (65-99) 11/26/22 04:28 Calcium 9.1 mg/dL (8.5-10.1) 11/26/22 04:28 Corrected Calcium TNP 11/26/22 04:28 Total Bilirubin 0.70 mg/dL (0.2-1.0) 11/26/22 04:28 AST 8 Units/L (15-37) L 11/26/22 04:28 ALT < 6 Units/L (12-78) L 11/26/22 04:28 Alkaline Phosphatase 104 Units/L (46-116) 11/26/22 04:28 Total Protein 6.6 g/dL (6.4-8.2) 11/26/22 04:28 Albumin 3.6 g/dL (3.4-5.0) 11/26/22 04:28 Globulin 3.0 g/dL (2.5-4.5) 11/26/22 04:28 Albumin/Globulin Ratio 1.2 Ratio (1.1-2.1) 11/26/22 04:28 - Plan (1) Generalized weakness Status: Acute Plan: CONTINUE IV ROCEPHIN. DAILY WOUND CARE. PHYSICAL THERAPY. CONTINUE CURRENT MEDICATION. BP CONTROL (2) UTI (urinary tract infection) Status: Acute Qualifiers: (3) Parkinson's disease Status: Chronic (4) Pressure ulcer Status: Acute Qualifiers: (5) Muscle spasm Status: Acute
[2022-11-28] MEDS: SINEMET (PLAIN) 25/250 MG PO SCH ×6 (01:55→21:14)
[2022-11-28 06:51] LABS: BASOPHILS # (AUTO) 0.1 X10^3/uL (0.0-0.1); BASOPHILS % (AUTO) 1.4 % (0.2-1.0); EOSINOPHILS # (AUTO) 0.3 x10^3/uL (0.0-0.2); EOSINOPHILS % (AUTO) 3.1 % (0.9-2.9); HEMATOCRIT 48.3 % (42.0-54.0); HEMOGLOBIN 15.8 g/dL (13.5-18.0); LYMPHOCYTES # (AUTO) 1.5 X10^3/uL (1.3-2.9); LYMPHOCYTES % (AUTO) 14.2 % (21.0-51.0); MEAN CORPUSCULAR HEMOGLOBIN 29.3 pg (27.0-34.0); MEAN CORPUSCULAR HGB CONC 32.8 g/dL (33.0-35.0); MEAN CORPUSCULAR VOLUME 89.4 fL (80.0-100.0); MONOCYTES # (AUTO) 0.8 x10^3/uL (0.3-0.8); MONOCYTES % (AUTO) 7.5 % (0.0-13.0); NEUTROPHILS # (AUTO) 7.6 x10^3/uL (2.2-4.8); NEUTROPHILS % (AUTO) 73.8 % (42.0-75.0); PLATELET COUNT 254 X10^3/uL (150.0-450.0); RED BLOOD COUNT 5.41 X10^6/uL (4.7-6.0); RED CELL DISTRIBUTION WIDTH 14.9 % (11.6-16.5); WHITE BLOOD COUNT 10.3 X10^3/uL (3.6-10.0)
[2022-11-28 07:07] LABS: ALANINE AMINOTRANSFERASE < 6 Units/L (12-78); ALBUMIN 3.7 g/dL (3.4-5.0); ALKALINE PHOSPHATASE 105 Units/L (46-116); ASPARTATE AMINO TRANSFERASE 9 Units/L (15-37); BLOOD UREA NITROGEN 18 mg/dL (7-18); CARBON DIOXIDE 30.1 mmol/L (21-32); CHLORIDE 103 mmol/L (98-107); CREATININE 0.81 mg/dL (0.70-1.30); GLUCOSE 90 mg/dL (65-99); POTASSIUM 4.1 mmol/L (3.5-5.1); SODIUM 140 mmol/L (136-145); TOTAL PROTEIN 6.7 g/dL (6.4-8.2); eGFR NON BLACK RACES > 60 (>60)
[2022-11-28] MEDS ORDERED: LEXAPRO ONE (08:45)
[2022-11-28] MEDS: ROCEPHIN VIAL 1 GRAM 1 G in NS 100 ML IV 100 ML IV SCH (09:08)
[2022-11-28] MEDS: K-DUR TAB 20 MEQ PO SCH (09:09)
[2022-11-28] MEDS: AMANTADINE HCL 100 MG CAP PO SCH ×2 (09:09→21:13)
[2022-11-28] MEDS: PROTONIX TAB 40 MG PO SCH (09:09)
[2022-11-28] MEDS: LEXAPRO PO SCH (09:10)
[2022-11-28] MEDS: JUVEN PO SCH ×2 (09:10→21:11)
[2022-11-28] MEDS: LOVENOX INJ 40 MG SYR SC SCH (09:10)
[2022-11-28] MEDS: MUCINEX DM PO SCH ×2 (09:10→21:13)
[2022-11-28] MEDS: ZESTRIL TAB 5 MG PO SCH (09:10)
--- NOTE | 2022-11-28 14:37 | RAD ---
HISTORYBILAT KNEE PAIN, HX OF FALLSSTUDYKNEE COMPLETE, RIGHTCOMPARISONNone availableFINDINGSEvaluation is slightly limited secondary to large field of view.Accounting for this, no acute fracture, malalignment or significant effusion of the right knee is identified. There is mild tricompartmental degenerative arthrosis. There is no gross soft tissue injury.IMPRESSIONNo acute radiographic abnormality of the right knee.Electronically signed by: DIEUDONNE OCONNELL (Nov 28, 2022 14:36:52)
--- NOTE | 2022-11-28 14:37 | RAD ---
HISTORYBILAT KNEE PAIN, HX OF FALLSSTUDYKNEE COMPLETE, LEFTCOMPARISONNone availableFINDINGSEvaluation is slightly limited secondary to large field of view.Accounting for this, no convincing acute fracture or malalignment of the left knee is identified. No joint effusion seen. Very mild degenerative narrowing of the lateral femorotibial compartment and partially visualized fixation hardware within the fibular shaft noted. There is no gross soft tissue injury.IMPRESSIONNo acute radiographic abnormality of the left knee.Electronically signed by: DIEUDONNE OCONNELL (Nov 28, 2022 14:36:21)
--- NOTE | 2022-11-28 14:40 | RAD ---
HISTORYPain, fall historySTUDYLumbar spine five viewsCOMPARISONMarch 2020, CTFINDINGSDegenerative disc narrowing with marginal osteophyte formation at multiple levels most pronounced at R06-T7-M0. Normal alignment. No fracture or bone destruction noted. Detail is limited by obscuring bowel gas.IMPRESSIONNo acute findings. Multilevel degenerative disc disease and spondylosis.Electronically signed by: CURT OBRIEN (Nov 28, 2022 14:40:00)
[2022-11-29] MEDS: SINEMET (PLAIN) 25/250 MG PO SCH ×6 (02:25→21:41)
[2022-11-29] MEDS ORDERED: LEXAPRO ONE (09:10)
[2022-11-29] MEDS: ROCEPHIN VIAL 1 GRAM 1 G in NS 100 ML IV 100 ML IV SCH (09:22)
[2022-11-29] MEDS: MUCINEX DM PO SCH ×2 (09:22→20:35)
[2022-11-29] MEDS: ZESTRIL TAB 5 MG PO SCH (09:23)
[2022-11-29] MEDS: LEXAPRO PO SCH (09:23)
[2022-11-29] MEDS: PROTONIX TAB 40 MG PO SCH (09:23)
[2022-11-29] MEDS: K-DUR TAB 20 MEQ PO SCH (09:23)
[2022-11-29] MEDS: JUVEN PO SCH ×2 (09:24→20:35)
[2022-11-29] MEDS: LOVENOX INJ 40 MG SYR SC SCH (09:24)
[2022-11-29] MEDS: AMANTADINE HCL 100 MG CAP PO SCH ×2 (09:37→20:35)
[2022-11-29] MEDS: LIORESAL PO PRN ×2 (11:50→23:11)
--- NOTE | 2022-11-29 17:54 | PCM.PROG ---
Progress Note - Subjective Subjective: He is a 51-year-old white male on swing bed therapy for rehab and IV antibiotics for a wound to his buttocks area. The patient has advanced Parkinson's and has had increased weakness and lower extremity muscle atrophy with multiple falls. He has pretty much been confined to a chair at home. He is currently on Rocephin 1 g IV daily. We obtained xrays of his knees and lower back and reviewed results with pt. His labs are on routine swing bed protocol, which is about every three days. - Past Medical Family Social History Past Med/Fam/Surg Hx: No changes since H&P Allergies: Allergies No Known Drug Allergies Allergy (Verified 11/13/22 05:40) - Review of Systems ROS: No change since H&P - Vital Signs and I&O's Intake and Output: Intake & Output 11/27/22 11/28/22 11/29/22 11/30/22 11:59 11:59 11:59 11:59 Intake Total 1330 / 1330 1170 / 1170 1384 / 1384 110 / 110 Output Total 1200 / 1200 1200 / 1200 700 / 700 Balance 130 / 130 -30 / -30 684 / 684 110 / 110 - Physical Exam Oriented: Normal Eyes: Normal Ear: Normal Nose: Normal Throat: Normal Respiratory: Wheezes Cardiovascular: Normal : Normal Auscultation: Bowel Sounds: Normal Tenderness: Normal Skin: Decreased Turgur, Wound Musculoskeletal: Right, Left, Leg, Back:Lumbar, Motor Deficit Psychiatric: Normal Mood Description: Calm Speech Pattern: Clear, Appropriate - Laboratory and Diagnostics Result Diagrams: 11/28/22 05:34 11/28/22 05:34 Labs: Laboratory WBC 10.3 X10^3/uL (3.6-10.0) H 11/28/22 05:34 RBC 5.41 X10^6/uL (4.7-6.0) 11/28/22 05:34 Hgb 15.8 g/dL (13.5-18.0) 11/28/22 05:34 Hct 48.3 % (42.0-54.0) 11/28/22 05:34 MCV 89.4 fL (80.0-100.0) 11/28/22 05:34 MCH 29.3 pg (27.0-34.0) 11/28/22 05:34 MCHC 32.8 g/dL (33.0-35.0) L 11/28/22 05:34 RDW 14.9 % (11.6-16.5) 11/28/22 05:34 Plt Count 254 X10^3/uL (150.0-450.0) 11/28/22 05:34 MPV 8.0 fL (7.4-11.0) 11/28/22 05:34 Neut % (Auto) 73.8 % (42.0-75.0) 11/28/22 05:34 Lymph % (Auto) 14.2 % (21.0-51.0) L 11/28/22 05:34 [place] % (Auto) 7.5 % (0.0-13.0) 11/28/22 05:34 Eos % (Auto) 3.1 % (0.9-2.9) H 11/28/22 05:34 Baso % (Auto) 1.4 % (0.2-1.0) H 11/28/22 05:34 Neut # (Auto) 7.6 x10^3/uL (2.2-4.8) H 11/28/22 05:34 Lymph # (Auto) 1.5 X10^3/uL (1.3-2.9) 11/28/22 05:34 [place] # (Auto) 0.8 x10^3/uL (0.3-0.8) 11/28/22 05:34 Eos # (Auto) 0.3 x10^3/uL (0.0-0.2) H 11/28/22 05:34 Baso # (Auto) 0.1 X10^3/uL (0.0-0.1) 11/28/22 05:34 Absolute Nucleated RBC 0.1 /100WBC 11/28/22 05:34 Sodium 140 mmol/L (136-145) 11/28/22 05:34 Corrected Sodium TNP 11/28/22 05:34 Potassium 4.1 mmol/L (3.5-5.1) 11/28/22 05:34 Chloride 103 mmol/L (98-107) 11/28/22 05:34 Carbon Dioxide 30.1 mmol/L (21-32) 11/28/22 05:34 BUN 18 mg/dL (7-18) 11/28/22 05:34 Creatinine 0.81 mg/dL (0.70-1.30) 11/28/22 05:34 Est GFR (MDRD) Af Amer > 60 (>60) 11/28/22 05:34 Est GFR (MDRD) Non-Af > 60 (>60) 11/28/22 05:34 Glucose 90 mg/dL (65-99) 11/28/22 05:34 Calcium 9.0 mg/dL (8.5-10.1) 11/28/22 05:34 Corrected Calcium TNP 11/28/22 05:34 Total Bilirubin 0.60 mg/dL (0.2-1.0) 11/28/22 05:34 AST 9 Units/L (15-37) L 11/28/22 05:34 ALT < 6 Units/L (12-78) L 11/28/22 05:34 Alkaline Phosphatase 105 Units/L (46-116) 11/28/22 05:34 Total Protein 6.7 g/dL (6.4-8.2) 11/28/22 05:34 Albumin 3.7 g/dL (3.4-5.0) 11/28/22 05:34 Globulin 3.0 g/dL (2.5-4.5) 11/28/22 05:34 Albumin/Globulin Ratio 1.2 Ratio (1.1-2.1) 11/28/22 05:34 - Plan (1) Generalized weakness Status: Acute Plan: CONTINUE IV ROCEPHIN. DAILY WOUND CARE. PHYSICAL THERAPY. CONTINUE CURRENT MEDICATION. BP CONTROL (2) UTI (urinary tract infection) Status: Acute Qualifiers: (3) Parkinson's disease Status: Chronic (4) Pressure ulcer Status: Acute Qualifiers: (5) Muscle spasm Status: Acute
[2022-11-29] MEDS: SINEMET (PLAIN) 10/100 MG PO PRN (20:34)
[2022-11-30] MEDS: SINEMET (PLAIN) 25/250 MG PO SCH ×6 (05:44→21:16)
[2022-11-30 06:12] LABS: BASOPHILS # (AUTO) 0.1 X10^3/uL (0.0-0.1); EOSINOPHILS # (AUTO) 0.3 x10^3/uL (0.0-0.2); HEMATOCRIT 46.7 % (42.0-54.0); HEMOGLOBIN 15.4 g/dL (13.5-18.0); LYMPHOCYTES # (AUTO) 1.5 X10^3/uL (1.3-2.9); LYMPHOCYTES % (AUTO) 15.5 % (21.0-51.0); MEAN CORPUSCULAR HEMOGLOBIN 29.6 pg (27.0-34.0); MEAN CORPUSCULAR HGB CONC 33.1 g/dL (33.0-35.0); MEAN CORPUSCULAR VOLUME 89.5 fL (80.0-100.0); MEAN PLATELET VOLUME 8.1 fL (7.4-11.0); MONOCYTES # (AUTO) 0.7 x10^3/uL (0.3-0.8); MONOCYTES % (AUTO) 7.3 % (0.0-13.0); NEUTROPHILS % (AUTO) 73.2 % (42.0-75.0); PLATELET COUNT 253 X10^3/uL (150.0-450.0); RED BLOOD COUNT 5.21 X10^6/uL (4.7-6.0); RED CELL DISTRIBUTION WIDTH 14.9 % (11.6-16.5); WHITE BLOOD COUNT 9.6 X10^3/uL (3.6-10.0)
[2022-11-30 06:34] LABS: ALANINE AMINOTRANSFERASE 8 Units/L (12-78); ALBUMIN 3.5 g/dL (3.4-5.0); ALKALINE PHOSPHATASE 101 Units/L (46-116); ASPARTATE AMINO TRANSFERASE 7 Units/L (15-37); BLOOD UREA NITROGEN 12 mg/dL (7-18); CALCIUM 8.8 mg/dL (8.5-10.1); CARBON DIOXIDE 30.6 mmol/L (21-32); CHLORIDE 105 mmol/L (98-107); CREATININE 0.79 mg/dL (0.70-1.30); GLUCOSE 87 mg/dL (65-99); SODIUM 142 mmol/L (136-145); TOTAL PROTEIN 6.6 g/dL (6.4-8.2); eGFR NON BLACK RACES > 60 (>60)
[2022-11-30] MEDS ORDERED: LEXAPRO ONE (08:19)
[2022-11-30] MEDS: MUCINEX DM PO SCH ×2 (09:56→21:16)
[2022-11-30] MEDS: K-DUR TAB 20 MEQ PO SCH (09:56)
[2022-11-30] MEDS: ROCEPHIN VIAL 1 GRAM 1 G in NS 100 ML IV 100 ML IV SCH (09:56)
[2022-11-30] MEDS: ZESTRIL TAB 5 MG PO SCH (09:56)
[2022-11-30] MEDS: AMANTADINE HCL 100 MG CAP PO SCH ×2 (09:57→21:16)
[2022-11-30] MEDS: JUVEN PO SCH ×2 (09:57→21:16)
[2022-11-30] MEDS: LEXAPRO PO SCH (09:57)
[2022-11-30] MEDS: LOVENOX INJ 40 MG SYR SC SCH (09:57)
[2022-11-30] MEDS: PROTONIX TAB 40 MG PO SCH (09:58)
[2022-11-30] MEDS: TYLENOL 325 MG TAB PO PRN (10:06)
[2022-11-30] MEDS: LIORESAL PO PRN (10:06)
[2022-11-30] MEDS: SINEMET (PLAIN) 10/100 MG PO PRN (21:16)
[2022-12-01] MEDS: SINEMET (PLAIN) 25/250 MG PO SCH ×6 (03:39→21:01)
[2022-12-01] MEDS ORDERED: LEXAPRO ONE (09:07)
[2022-12-01] MEDS: ZESTRIL TAB 5 MG PO SCH (09:15)
[2022-12-01] MEDS: LEXAPRO PO SCH (09:15)
[2022-12-01] MEDS: K-DUR TAB 20 MEQ PO SCH (09:15)
[2022-12-01] MEDS: MUCINEX DM PO SCH ×2 (09:16→21:01)
[2022-12-01] MEDS: AMANTADINE HCL 100 MG CAP PO SCH ×2 (09:16→21:01)
[2022-12-01] MEDS: LOVENOX INJ 40 MG SYR SC SCH (09:16)
[2022-12-01] MEDS: PROTONIX TAB 40 MG PO SCH (09:16)
[2022-12-01] MEDS: ROCEPHIN VIAL 1 GRAM 1 G in NS 100 ML IV 100 ML IV SCH (09:17)
[2022-12-01] MEDS: JUVEN PO SCH ×2 (09:17→21:02)
[2022-12-02] MEDS: SINEMET (PLAIN) 25/250 MG PO SCH ×6 (02:27→21:30)
[2022-12-02] MEDS: TYLENOL 325 MG TAB PO PRN ×2 (05:15→15:32)
[2022-12-02] MEDS ORDERED: LEXAPRO ONE (08:07)
[2022-12-02] MEDS: K-DUR TAB 20 MEQ PO SCH (08:58)
[2022-12-02] MEDS: AMANTADINE HCL 100 MG CAP PO SCH ×2 (08:58→20:03)
[2022-12-02] MEDS: JUVEN PO SCH ×2 (08:58→20:03)
[2022-12-02] MEDS: LEXAPRO PO SCH (08:58)
[2022-12-02] MEDS: ROCEPHIN VIAL 1 GRAM 1 G in NS 100 ML IV 100 ML IV SCH (08:59)
[2022-12-02] MEDS: PROTONIX TAB 40 MG PO SCH (08:59)
[2022-12-02] MEDS: MUCINEX DM PO SCH ×2 (08:59→20:02)
[2022-12-02] MEDS: LOVENOX INJ 40 MG SYR SC SCH (08:59)
[2022-12-02] MEDS: ZESTRIL TAB 5 MG PO SCH (09:00)
[2022-12-02] MEDS: LIORESAL PO PRN (20:06)
[2022-12-03] MEDS: SINEMET (PLAIN) 25/250 MG PO SCH ×6 (01:58→21:07)
[2022-12-03 05:45] LABS: BASOPHILS % (AUTO) 0.3 % (0.2-1.0); EOSINOPHILS # (AUTO) 0.4 x10^3/uL (0.0-0.2); EOSINOPHILS % (AUTO) 3.7 % (0.9-2.9); HEMATOCRIT 45.3 % (42.0-54.0); HEMOGLOBIN 15.4 g/dL (13.5-18.0); LYMPHOCYTES # (AUTO) 1.7 X10^3/uL (1.3-2.9); LYMPHOCYTES % (AUTO) 16.5 % (21.0-51.0); MEAN CORPUSCULAR HGB CONC 33.9 g/dL (33.0-35.0); MEAN CORPUSCULAR VOLUME 88.5 fL (80.0-100.0); MEAN PLATELET VOLUME 8.4 fL (7.4-11.0); MONOCYTES # (AUTO) 0.7 x10^3/uL (0.3-0.8); MONOCYTES % (AUTO) 7.1 % (0.0-13.0); NEUTROPHILS # (AUTO) 7.5 x10^3/uL (2.2-4.8); NEUTROPHILS % (AUTO) 72.4 % (42.0-75.0); PLATELET COUNT 249 X10^3/uL (150.0-450.0); RED BLOOD COUNT 5.12 X10^6/uL (4.7-6.0); RED CELL DISTRIBUTION WIDTH 14.8 % (11.6-16.5); WHITE BLOOD COUNT 10.3 X10^3/uL (3.6-10.0)
[2022-12-03 05:56] LABS: ALANINE AMINOTRANSFERASE < 6 Units/L (12-78); ALBUMIN 3.4 g/dL (3.4-5.0); ALKALINE PHOSPHATASE 101 Units/L (46-116); ASPARTATE AMINO TRANSFERASE 10 Units/L (15-37); BLOOD UREA NITROGEN 12 mg/dL (7-18); CALCIUM 8.5 mg/dL (8.5-10.1); CARBON DIOXIDE 30.7 mmol/L (21-32); CHLORIDE 105 mmol/L (98-107); CREATININE 0.74 mg/dL (0.70-1.30); GLUCOSE 86 mg/dL (65-99); POTASSIUM 3.8 mmol/L (3.5-5.1); SODIUM 140 mmol/L (136-145); TOTAL PROTEIN 6.4 g/dL (6.4-8.2); eGFR NON BLACK RACES > 60 (>60)
[2022-12-03] MEDS ORDERED: CONSULT PHARMACY - POTASSIUM & MAGNESIUM XX SCH (07:00)
[2022-12-03] MEDS ORDERED: LEXAPRO ONE (08:15)
[2022-12-03] MEDS ORDERED: K-DUR TAB 20 MEQ PO SCH (09:00)
[2022-12-03] MEDS: ZESTRIL TAB 5 MG PO SCH (09:15)
[2022-12-03] MEDS: PROTONIX TAB 40 MG PO SCH (09:16)
[2022-12-03] MEDS: MUCINEX DM PO SCH ×2 (09:16→21:06)
[2022-12-03] MEDS: K-DUR TAB 20 MEQ PO SCH (09:16)
[2022-12-03] MEDS: LEXAPRO PO SCH (09:16)
[2022-12-03] MEDS: LOVENOX INJ 40 MG SYR SC SCH (09:17)
[2022-12-03] MEDS: AMANTADINE HCL 100 MG CAP PO SCH ×2 (09:19→21:06)
[2022-12-03] MEDS: JUVEN PO SCH ×2 (09:25→21:07)
[2022-12-03] MEDS: ROCEPHIN VIAL 1 GRAM 1 G in NS 100 ML IV 100 ML IV SCH ×2 (09:31→10:55)
[2022-12-03] MEDS ORDERED: XYLOCAINE 1 % (PLAIN) ONE (10:48)
[2022-12-03] MEDS: TYLENOL 325 MG TAB PO PRN (17:15)
[2022-12-03] MEDS: LIORESAL PO PRN (21:06)
[2022-12-03 22:17] VITALS: TEMP 98
[2022-12-04] MEDS: SINEMET (PLAIN) 25/250 MG PO SCH ×3 (01:37→09:50)
[2022-12-04 06:42] LABS: BASOPHILS # (AUTO) 0.1 X10^3/uL (0.0-0.1); BASOPHILS % (AUTO) 1.2 % (0.2-1.0); EOSINOPHILS # (AUTO) 0.3 x10^3/uL (0.0-0.2); EOSINOPHILS % (AUTO) 3.6 % (0.9-2.9); HEMATOCRIT 46.6 % (42.0-54.0); HEMOGLOBIN 15.5 g/dL (13.5-18.0); LYMPHOCYTES # (AUTO) 1.5 X10^3/uL (1.3-2.9); LYMPHOCYTES % (AUTO) 15.3 % (21.0-51.0); MEAN CORPUSCULAR HEMOGLOBIN 29.5 pg (27.0-34.0); MEAN CORPUSCULAR HGB CONC 33.1 g/dL (33.0-35.0); MEAN PLATELET VOLUME 8.1 fL (7.4-11.0); MONOCYTES # (AUTO) 0.6 x10^3/uL (0.3-0.8); MONOCYTES % (AUTO) 6.4 % (0.0-13.0); NEUTROPHILS # (AUTO) 7.1 x10^3/uL (2.2-4.8); NEUTROPHILS % (AUTO) 73.5 % (42.0-75.0); PLATELET COUNT 258 X10^3/uL (150.0-450.0); RED BLOOD COUNT 5.24 X10^6/uL (4.7-6.0); RED CELL DISTRIBUTION WIDTH 14.7 % (11.6-16.5); WHITE BLOOD COUNT 9.7 X10^3/uL (3.6-10.0)
[2022-12-04 06:59] LABS: ALANINE AMINOTRANSFERASE < 6 Units/L (12-78); ALBUMIN 3.5 g/dL (3.4-5.0); ALKALINE PHOSPHATASE 108 Units/L (46-116); ASPARTATE AMINO TRANSFERASE 10 Units/L (15-37); BLOOD UREA NITROGEN 10 mg/dL (7-18); CALCIUM 8.5 mg/dL (8.5-10.1); CARBON DIOXIDE 26.7 mmol/L (21-32); CHLORIDE 104 mmol/L (98-107); GLUCOSE 100 mg/dL (65-99); POTASSIUM 3.6 mmol/L (3.5-5.1); SODIUM 139 mmol/L (136-145); TOTAL PROTEIN 6.6 g/dL (6.4-8.2); eGFR NON BLACK RACES > 60 (>60)
[2022-12-04] MEDS ORDERED: LEXAPRO ONE (07:50)
[2022-12-04] MEDS ORDERED: CONSULT PHARMACY - POTASSIUM & MAGNESIUM XX SCH (08:00)
[2022-12-04 08:01] VITALS: BP 93/52; PULSE 61; RESP 20; O2SAT 96
[2022-12-04] MEDS: LOVENOX INJ 40 MG SYR SC SCH (09:05)
[2022-12-04] MEDS: K-DUR TAB 20 MEQ PO SCH (09:05)
[2022-12-04] MEDS: PROTONIX TAB 40 MG PO SCH (09:05)
[2022-12-04] MEDS: ZESTRIL TAB 5 MG PO SCH (09:05)
[2022-12-04] MEDS: LEXAPRO PO SCH (09:06)
[2022-12-04] MEDS: MUCINEX DM PO SCH (09:06)
[2022-12-04] MEDS: JUVEN PO SCH (09:50)
[2022-12-04] MEDS: ROCEPHIN VIAL 1 GRAM 1 G in NS 100 ML IV 100 ML IV SCH (09:50)
[2022-12-04] MEDS: AMANTADINE HCL 100 MG CAP PO SCH (09:50)
== END 2022-12-04 10:05 | disposition home health service (06) | DRG 690 ==
LOC: MED/SURG 15:00
PROVIDERS: ADMIT Internal Medicine; ATTEND Internal Medicine
DX: M25.562 Pain in left knee; Z51.89 Encounter for other specified aftercare; I10 Essential (primary) hypertension; N39.0 Urinary tract infection, site not specified; M25.561 Pain in right knee; Z91.81 History of falling; L89.312 Pressure ulcer of right buttock, stage 2; R53.1 Weakness; R62.7 Adult failure to thrive; R26.89 Other abnormalities of gait and mobility; R60.0 Localized edema; M54.89 Other dorsalgia; G20 Parkinson's disease; M62.838 Other muscle spasm; R29.6 Repeated falls

== ENCOUNTER 2024-06-24 16:05 | Observation (INO) ==
--- NOTE | 2024-06-24 17:58 | DR.H&P ---
H&P History & Physical for Day of: H&P Date: 06/25/24 Chief Complaint Chief Complaint: INFECTED BED SORE, WEAKNESS History of Present Illness History of Present Illness: PT IS 53 WM, DIRECT ADMIT FROM DR CUELLAR OFFICE WITH INFECTED PRESSURE ULCERATIONS TO BUTTOCKS. PT HAS TRAUMATIC FALL WITH FACIAL FRACTURES ONE MONTH AGO AND WAS SENT TO [place]. SINCE PT HAS BEEN BACK AT HOME, PT HAS BEEN COMPLETE BED BOUND STATUS, UNABLE TO STAND. HOME HEALTH HAS BEEN UNABLE TO ASSESS OR CARE FOR HIS WOUND, WITH REPORTS OF FEVER AND INCREASED WEAKNESS. PT HAS A PAST MEDICAL HISTORY OF PARKINSON'S AND SPINAL DDD. PT ADMITTED FOR EVALUATION AND TREATMENT OF ACUTE ILLNESS. PT NEEDS NH PLACEMENT FOR HALFWAY WOUND CARE. Past Medical History Past Medical History: Anxiety, Arthritis and Hypertension Additional Medical History: PARKINSON Past Surgical History Surgical History: Ortho Surgery and Tonsillectomy Family History Family Medical History: Cancer, OR, Coronary Artery Disease, Heart Failure and Hypertension Medications Home Medications: Home Medications Medication Instructions Recorded Confirmed Type carbidopa 25 mg-levodopa 250 mg See Rx Instructions .Route .COMPLEX 05/25/22 12/30/23 History tablet meloxicam 15 mg tablet 15 mg PO QDAY 05/25/22 12/30/23 History pantoprazole 40 mg tablet,delayed 40 mg PO QDAY 05/25/22 12/30/23 History release amantadine HCl 100 mg tablet 100 mg PO BID 11/13/22 12/30/23 History escitalopram oxalate 10 mg tablet 10 mg PO QDAY 06/16/23 12/30/23 History baclofen 10 mg tablet 10 mg PO TID PRN Cramps 06/17/23 12/30/23 History carbidopa 10 mg-levodopa 100 mg 1 tab PO TID 12/30/23 12/30/23 History tablet cyanocobalamin (vitamin B-12) 1,000 mcg PO QDAY 12/30/23 12/30/23 History 1,000 mcg tablet (Vitamin B-12) Allergies Allergies Allergy/AdvReac Type Severity Reaction Status Date / Time No Known Drug Allergies Allergy Verified 11/13/22 05:40 Labs 06/25/24 12:35 06/25/24 12:35 Review of Systems Constitutional: Fever, Sweats and Weakness Eyes: No Symptoms Reported ENT: No Symptoms Reported Respiratory: Cough Cardiovascular: Palpitations Gastrointestinal: Diarrhea Genitourinary: Frequency and Incontinence Musculoskeletal: Back Pain and Leg Pain Skin: Wound Neurological: Weakness and Incoordination Oriented: Normal Eyes: Normal Nose: Normal Throat: Dry Respiratory: Diminished Throughout Cardiovascular: Tachycardia Auscultation: Bowel Sounds: Increased Palpation: Normal Skin: Decreased Turgur and Wound Musculoskeletal: Leg, Back:Lumbar, Motor Deficit, Sensory Deficit and Instability Psychiatric: Depression Mood Description: Depressed Affect: Depressed Speech Pattern: Clear and Appropriate Assessment/Plan (1) Infected wound: Status: Acute Plan: ADMIT, BC AND WOUND CULTURE WOUND CARE, CONSULT DR KATE IV ATBX, PAIN CONTROL VERIFY HOME MEDICATION NH PLACEMENT (2) Dehydration: Status: Acute (3) UTI (urinary tract infection): Status: Acute (4) Parkinson disease: Status: Acute (5) GERD (gastroesophageal reflux disease): Qualifiers: Esophagitis presence: esophagitis presence not specified Qualified Code(s): K21.9 - Gastro-esophageal reflux disease without esophagitis Status: Chronic
[2024-06-24] MEDS ORDERED: SINEMET (PLAIN) 25/250 MG PO SCH (18:00)
[2024-06-25] MEDS ORDERED: LEXAPRO ONE (12:49)
[2024-06-25 13:00] LABS: BASOPHILS # (AUTO) 0.1 X10^3/uL (0.0-0.1); BASOPHILS % (AUTO) 0.9 % (0.2-1.0); EOSINOPHILS # (AUTO) 0.4 x10^3/uL (0.0-0.2); EOSINOPHILS % (AUTO) 3.1 % (0.9-2.9); HEMATOCRIT 45.7 % (42.0-54.0); LYMPHOCYTES % (AUTO) 9.1 % (21.0-51.0); MEAN CORPUSCULAR HEMOGLOBIN 29.3 pg (27.0-34.0); MEAN CORPUSCULAR HGB CONC 32.8 g/dL (33.0-35.0); MEAN CORPUSCULAR VOLUME 89.4 fL (80.0-100.0); MEAN PLATELET VOLUME 7.4 fL (7.4-11.0); MONOCYTES # (AUTO) 0.4 x10^3/uL (0.3-0.8); MONOCYTES % (AUTO) 3.4 % (0.0-13.0); NEUTROPHILS # (AUTO) 9.6 x10^3/uL (2.2-4.8); NEUTROPHILS % (AUTO) 83.5 % (42.0-75.0); PLATELET COUNT 279 X10^3/uL (150.0-450.0); RED BLOOD COUNT 5.11 X10^6/uL (4.7-6.0); RED CELL DISTRIBUTION WIDTH 15.3 % (11.6-16.5); RETICULOCYTE % 0.58 % (0.8-2.2); WHITE BLOOD COUNT 11.5 X10^3/uL (3.6-10.0)
[2024-06-25] MEDS: MERREM VIAL 1 G in NS 100 ML IV 100 ML IV SCH (13:00)
[2024-06-25] MEDS: SINEMET (PLAIN) 10/100 MG PO SCH (13:07)
[2024-06-25] MEDS: LEXAPRO PO SCH (13:08)
[2024-06-25] MEDS: PROTONIX TAB 40 MG PO SCH (13:08)
[2024-06-25] MEDS: NS 1,000 ML IV 1,000 ML IV SCH (13:08)
[2024-06-25 13:22] LABS: ALANINE AMINOTRANSFERASE 10 Units/L (12-78); ALBUMIN 3.4 g/dL (3.4-5.0); ALKALINE PHOSPHATASE 252 Units/L (46-116); ASPARTATE AMINO TRANSFERASE 12 Units/L (15-37); BLOOD UREA NITROGEN 12 mg/dL (7-18); CARBON DIOXIDE 28.9 mmol/L (21-32); CHLORIDE 106 mmol/L (98-107); CREATINE KINASE 22 Units/L (39-308); GLUCOSE 96 mg/dL (65-99); POTASSIUM 4.1 mmol/L (3.5-5.1); SODIUM 142 mmol/L (136-145); TOTAL PROTEIN 7.5 g/dL (6.4-8.2); eGFR NON BLACK RACES > 60 (>60)
[2024-06-25 13:27] LABS: CALCIUM 9.2 mg/dL (8.5-10.1)
[2024-06-25 13:52] LABS: IRON 37 ug/dL (50-175)
--- NOTE | 2024-06-25 14:58 | RAD ---
EXAM: CHEST, 1 VIEW HISTORY: CHEST CONGESTION; HX PARKINSONS, HTN. SX HERNIA, ORTHO, SPINE COMPARISON: Prior study or studies were utilized for comparison during interpretation with the most relevant momo ed 01/02/2024 TECHNIQUE: CHEST, 1 VIEW FINDINGS: Chest: Lines and tubes: None Mediastinum: Cardiac and mediastinal shadow is within normal limits for size and contour. Pulmonary vessels: No pulmonary vascular congestion. Lung watson: No suspicious airspace opacity. Pleura: No effusion. No pneumothorax. Bones and soft tissues: No acute osseous or soft tissue abnormality. IMPRESSION: 1. No acute cardiopulmonary abnormality THIS IS AN ELECTRONICALLY VERIFIED FINAL REPORT 06/25/2024 2:55 PM - Electronically signed by Barrie Sahni MD
[2024-06-25 15:19] LABS: TOTAL IRON BINDING CAPACITY 267 ug/dL (250-450)
[2024-06-25 15:57] LABS: BILIRUBIN,URINE NEGATIVE (NEGATIVE); BLOOD/HEMOGLOBIN,URINE 1+ (NEGATIVE); GLUCOSE, URINE NEGATIVE (NEGATIVE); KETONES,URINE 2+ (NEGATIVE); LEUKOCYTE ESTERASE ,URINE 2+ (NEGATIVE); NITRITES,URINE POSITIVE (NEGATIVE); PROTEIN,URINE 1+ (NEGATIVE); UROBILINOGEN,URINE NORMAL (NORMAL)
[2024-06-25 16:08] LABS: APPEARANCE,URINE CLOUDY (CLEAR); BACTERIA,URINE 4+ /HPF (NEGATIVE); CALCIUM OXALATE CRYSTALS,UR RARE /HPF (NEGATIVE); COLOR,URINE YELLOW (YELLOW); RBC,URINE 0-2 /HPF (0-3); SQUAMOUS EPITHELIAL CELL,UR MODERATE /HPF (NEGATIVE)
[2024-06-25] MEDS ORDERED: QUESTRAN POWDER FOR ORAL SUSP PO PRN (18:04)
[2024-06-26 05:56] LABS: BASOPHILS # (AUTO) 0.1 X10^3/uL (0.0-0.1); BASOPHILS % (AUTO) 1.2 % (0.2-1.0); EOSINOPHILS # (AUTO) 0.5 x10^3/uL (0.0-0.2); EOSINOPHILS % (AUTO) 5.2 % (0.9-2.9); HEMATOCRIT 42.4 % (42.0-54.0); HEMOGLOBIN 14.4 g/dL (13.5-18.0); LYMPHOCYTES # (AUTO) 1.7 X10^3/uL (1.3-2.9); LYMPHOCYTES % (AUTO) 18.4 % (21.0-51.0); MEAN CORPUSCULAR HGB CONC 33.8 g/dL (33.0-35.0); MEAN CORPUSCULAR VOLUME 88.5 fL (80.0-100.0); MEAN PLATELET VOLUME 7.7 fL (7.4-11.0); MONOCYTES # (AUTO) 0.6 x10^3/uL (0.3-0.8); MONOCYTES % (AUTO) 6.6 % (0.0-13.0); NEUTROPHILS # (AUTO) 6.2 x10^3/uL (2.2-4.8); NEUTROPHILS % (AUTO) 68.6 % (42.0-75.0); PLATELET COUNT 283 X10^3/uL (150.0-450.0); RED BLOOD COUNT 4.79 X10^6/uL (4.7-6.0); RED CELL DISTRIBUTION WIDTH 15.1 % (11.6-16.5)
[2024-06-26 06:12] LABS: ALANINE AMINOTRANSFERASE 12 Units/L (12-78); ALBUMIN 2.8 g/dL (3.4-5.0); ALKALINE PHOSPHATASE 214 Units/L (46-116); ASPARTATE AMINO TRANSFERASE 15 Units/L (15-37); BLOOD UREA NITROGEN 10 mg/dL (7-18); CALCIUM 8.6 mg/dL (8.5-10.1); CARBON DIOXIDE 27.5 mmol/L (21-32); CHLORIDE 106 mmol/L (98-107); COR CA(FOR HYPOALB) 9.6 mg/dL (8.5-10.1); GLUCOSE 83 mg/dL (65-99); POTASSIUM 4.1 mmol/L (3.5-5.1); SODIUM 142 mmol/L (136-145); TOTAL PROTEIN 6.5 g/dL (6.4-8.2); eGFR NON BLACK RACES > 60 (>60)
[2024-06-26] MEDS ORDERED: LEXAPRO ONE (09:02)
[2024-06-26] MEDS: LIORESAL PO PRN (09:31)
[2024-06-26] MEDS: PERCOCET TAB 5/325 MG PO PRN (09:31)
[2024-06-26] MEDS: LOVENOX INJ 40 MG SYR SC SCH (09:32)
[2024-06-27 05:32] LABS: BASOPHILS # (AUTO) 0.1 X10^3/uL (0.0-0.1); BASOPHILS % (AUTO) 1.3 % (0.2-1.0); EOSINOPHILS # (AUTO) 0.4 x10^3/uL (0.0-0.2); EOSINOPHILS % (AUTO) 4.6 % (0.9-2.9); HEMATOCRIT 40.9 % (42.0-54.0); HEMOGLOBIN 13.7 g/dL (13.5-18.0); LYMPHOCYTES # (AUTO) 2.2 X10^3/uL (1.3-2.9); LYMPHOCYTES % (AUTO) 25.5 % (21.0-51.0); MEAN CORPUSCULAR HEMOGLOBIN 29.6 pg (27.0-34.0); MEAN CORPUSCULAR HGB CONC 33.5 g/dL (33.0-35.0); MEAN CORPUSCULAR VOLUME 88.4 fL (80.0-100.0); MEAN PLATELET VOLUME 7.6 fL (7.4-11.0); MONOCYTES # (AUTO) 0.5 x10^3/uL (0.3-0.8); MONOCYTES % (AUTO) 6.3 % (0.0-13.0); NEUTROPHILS # (AUTO) 5.3 x10^3/uL (2.2-4.8); NEUTROPHILS % (AUTO) 62.3 % (42.0-75.0); PLATELET COUNT 275 X10^3/uL (150.0-450.0); RED BLOOD COUNT 4.62 X10^6/uL (4.7-6.0); RED CELL DISTRIBUTION WIDTH 15.1 % (11.6-16.5); WHITE BLOOD COUNT 8.5 X10^3/uL (3.6-10.0)
[2024-06-27 05:35] LABS: ALANINE AMINOTRANSFERASE 10 Units/L (12-78); ALBUMIN 2.8 g/dL (3.4-5.0); ALKALINE PHOSPHATASE 203 Units/L (46-116); ASPARTATE AMINO TRANSFERASE 13 Units/L (15-37); BLOOD UREA NITROGEN 9 mg/dL (7-18); CALCIUM 8.7 mg/dL (8.5-10.1); CARBON DIOXIDE 27.4 mmol/L (21-32); CHLORIDE 107 mmol/L (98-107); COR CA(FOR HYPOALB) 9.7 mg/dL (8.5-10.1); CREATININE 0.57 mg/dL (0.70-1.30); GLUCOSE 85 mg/dL (65-99); POTASSIUM 3.7 mmol/L (3.5-5.1); SODIUM 143 mmol/L (136-145); TOTAL PROTEIN 6.3 g/dL (6.4-8.2); eGFR NON BLACK RACES > 60 (>60)
[2024-06-27] MEDS ORDERED: CONSULT PHARMACY - POTASSIUM & MAGNESIUM XX SCH (07:00)
[2024-06-27] MEDS ORDERED: LEXAPRO ONE (07:29)
[2024-06-27] MEDS: K-DUR TAB 20 MEQ PO SCH (08:03)
--- NOTE | 2024-06-27 09:34 | NOTE.SOAP ---
Soap Note Note for Day of Date of Exam: 06/27/24 Subjective Data Subjective Data: Patient seen for daily rounds. No acute events per patient or nursing. No acute complaints. Urine with ESBL E. coli and sacral wound with Proteus mirabilis. Both sensitive to meropenem. Pending surgical reevaluation on Saturday. Objective Data Objective Data: Well-developed, well-nourished, obese male in no acute distress. Soft voice with flattened affect. Heart regular rate and rhythm. Lungs clear with shallow respirations. Belly protuberant but soft with bowel sounds present. No edema of lower extremities with a great deal of muscular atrophy. Assessment Assessment: 1. ESBL E Coli UTI 2. Proteus mirabilis buttock decubitus ulcer 3. Parkinson 4. Gait instability Plan Plan: Continue home meds as appropriate. Continue Merrem I.V. Pending retirement placement. Appreciate surgical input.
[2024-06-27 12:26] VITALS: BMI 32.5
[2024-06-28 05:01] LABS: BASOPHILS # (AUTO) 0.2 X10^3/uL (0.0-0.1); BASOPHILS % (AUTO) 1.5 % (0.2-1.0); EOSINOPHILS # (AUTO) 0.4 x10^3/uL (0.0-0.2); EOSINOPHILS % (AUTO) 3.4 % (0.9-2.9); HEMATOCRIT 42.9 % (42.0-54.0); HEMOGLOBIN 14.3 g/dL (13.5-18.0); LYMPHOCYTES # (AUTO) 1.4 X10^3/uL (1.3-2.9); LYMPHOCYTES % (AUTO) 11.5 % (21.0-51.0); MEAN CORPUSCULAR HEMOGLOBIN 29.2 pg (27.0-34.0); MEAN CORPUSCULAR HGB CONC 33.3 g/dL (33.0-35.0); MEAN CORPUSCULAR VOLUME 87.8 fL (80.0-100.0); MEAN PLATELET VOLUME 7.8 fL (7.4-11.0); MONOCYTES # (AUTO) 0.5 x10^3/uL (0.3-0.8); MONOCYTES % (AUTO) 4.1 % (0.0-13.0); NEUTROPHILS # (AUTO) 9.7 x10^3/uL (2.2-4.8); NEUTROPHILS % (AUTO) 79.5 % (42.0-75.0); PLATELET COUNT 261 X10^3/uL (150.0-450.0); RED BLOOD COUNT 4.89 X10^6/uL (4.7-6.0); RED CELL DISTRIBUTION WIDTH 15.2 % (11.6-16.5); WHITE BLOOD COUNT 12.2 X10^3/uL (3.6-10.0)
[2024-06-28 05:12] LABS: ALANINE AMINOTRANSFERASE 10 Units/L (12-78); ALBUMIN 2.9 g/dL (3.4-5.0); ALKALINE PHOSPHATASE 203 Units/L (46-116); ASPARTATE AMINO TRANSFERASE 12 Units/L (15-37); BLOOD UREA NITROGEN 8 mg/dL (7-18); CALCIUM 8.9 mg/dL (8.5-10.1); CARBON DIOXIDE 26.6 mmol/L (21-32); CHLORIDE 105 mmol/L (98-107); COR CA(FOR HYPOALB) 9.8 mg/dL (8.5-10.1); CREATININE 0.54 mg/dL (0.70-1.30); GLUCOSE 83 mg/dL (65-99); POTASSIUM 3.7 mmol/L (3.5-5.1); SODIUM 141 mmol/L (136-145); TOTAL PROTEIN 6.7 g/dL (6.4-8.2); eGFR NON BLACK RACES > 60 (>60)
[2024-06-28] MEDS ORDERED: TYLENOL 325 MG TAB PO PRN (05:15)
[2024-06-28] MEDS ORDERED: CONSULT PHARMACY - POTASSIUM & MAGNESIUM XX SCH (07:00)
[2024-06-28] MEDS ORDERED: LEXAPRO ONE (08:06)
[2024-06-28] MEDS: K-DUR TAB 20 MEQ PO SCH (08:18)
--- NOTE | 2024-06-28 15:37 | NOTE.SOAP ---
Soap Note Note for Day of Date of Exam: 06/28/24 Subjective Data Subjective Data: No overnight events per patient or nursing. He is asking for Tylenol as needed. He also reports that his Sinemet dosing is much lower than his home dosing. Objective Data Objective Data: Well-developed, well-nourished, obese male in no acute distress. Soft voice with flattened affect. Heart regular rate and rhythm. Lungs clear with shallow respirations. Belly protuberant but soft with bowel sounds present. No edema of lower extremities with a great deal of muscular atrophy. Assessment Assessment: 1. ESBL E Coli UTI 2. Proteus mirabilis buttock decubitus ulcer 3. Parkinson 4. Gait instability Plan Plan: Increase to home dose of Sinemet. Add on Tylenol 500 every 6 as needed.
[2024-06-28] MEDS: SINEMET (PLAIN) 25/250 MG PO SCH (16:23)
[2024-06-29 05:07] LABS: BASOPHILS # (AUTO) 0.1 X10^3/uL (0.0-0.1); BASOPHILS % (AUTO) 0.9 % (0.2-1.0); EOSINOPHILS # (AUTO) 0.2 x10^3/uL (0.0-0.2); HEMATOCRIT 42.3 % (42.0-54.0); LYMPHOCYTES # (AUTO) 1.7 X10^3/uL (1.3-2.9); LYMPHOCYTES % (AUTO) 15.3 % (21.0-51.0); MEAN CORPUSCULAR HEMOGLOBIN 29.2 pg (27.0-34.0); MEAN CORPUSCULAR HGB CONC 33.1 g/dL (33.0-35.0); MONOCYTES # (AUTO) 0.7 x10^3/uL (0.3-0.8); MONOCYTES % (AUTO) 6.3 % (0.0-13.0); NEUTROPHILS # (AUTO) 8.3 x10^3/uL (2.2-4.8); NEUTROPHILS % (AUTO) 75.5 % (42.0-75.0); PLATELET COUNT 246 X10^3/uL (150.0-450.0); RED BLOOD COUNT 4.81 X10^6/uL (4.7-6.0); RED CELL DISTRIBUTION WIDTH 14.9 % (11.6-16.5)
[2024-06-29 05:27] LABS: ALBUMIN 2.8 g/dL (3.4-5.0); ALKALINE PHOSPHATASE 191 Units/L (46-116); ASPARTATE AMINO TRANSFERASE 12 Units/L (15-37); BLOOD UREA NITROGEN 9 mg/dL (7-18); CALCIUM 8.8 mg/dL (8.5-10.1); CARBON DIOXIDE 26.4 mmol/L (21-32); CHLORIDE 105 mmol/L (98-107); COR CA(FOR HYPOALB) 9.8 mg/dL (8.5-10.1); CREATININE 0.59 mg/dL (0.70-1.30); GLUCOSE 82 mg/dL (65-99); MAGNESIUM 1.8 mg/dL (2.0-2.9); POTASSIUM 3.6 mmol/L (3.5-5.1); SODIUM 141 mmol/L (136-145); TOTAL PROTEIN 6.3 g/dL (6.4-8.2); eGFR NON BLACK RACES > 60 (>60)
[2024-06-29 05:36] LABS: ALANINE AMINOTRANSFERASE 6 Units/L (12-78)
[2024-06-29] MEDS ORDERED: CONSULT PHARMACY - POTASSIUM & MAGNESIUM XX SCH (08:00)
[2024-06-29] MEDS ORDERED: LEXAPRO ONE (08:54)
[2024-06-29] MEDS: NS 1,000 ML IV 1,000 ML with MAGNESIUM SULFATE 50% INJ VIAL 1 G IV SCH (09:10)
[2024-06-29] MEDS: K-DUR TAB 20 MEQ PO SCH (09:11)
[2024-06-29] MEDS: SINEMET (PLAIN) 10/100 MG PO SCH (16:12)
[2024-06-29] MEDS: SINEMET (PLAIN) 25/250 MG PO SCH (18:25)
[2024-06-30 05:50] LABS: BASOPHILS # (AUTO) 0.1 X10^3/uL (0.0-0.1); BASOPHILS % (AUTO) 1.4 % (0.2-1.0); EOSINOPHILS # (AUTO) 0.3 x10^3/uL (0.0-0.2); EOSINOPHILS % (AUTO) 2.9 % (0.9-2.9); HEMOGLOBIN 13.2 g/dL (13.5-18.0); LYMPHOCYTES % (AUTO) 20.6 % (21.0-51.0); MEAN CORPUSCULAR HEMOGLOBIN 29.2 pg (27.0-34.0); MEAN CORPUSCULAR HGB CONC 33.1 g/dL (33.0-35.0); MEAN CORPUSCULAR VOLUME 88.4 fL (80.0-100.0); MEAN PLATELET VOLUME 7.5 fL (7.4-11.0); MONOCYTES # (AUTO) 0.8 x10^3/uL (0.3-0.8); MONOCYTES % (AUTO) 8.4 % (0.0-13.0); NEUTROPHILS # (AUTO) 6.4 x10^3/uL (2.2-4.8); NEUTROPHILS % (AUTO) 66.7 % (42.0-75.0); PLATELET COUNT 258 X10^3/uL (150.0-450.0); RED BLOOD COUNT 4.53 X10^6/uL (4.7-6.0); WHITE BLOOD COUNT 9.6 X10^3/uL (3.6-10.0)
[2024-06-30 06:02] LABS: ALANINE AMINOTRANSFERASE 6 Units/L (12-78); ALBUMIN 2.7 g/dL (3.4-5.0); ALKALINE PHOSPHATASE 169 Units/L (46-116); ASPARTATE AMINO TRANSFERASE 12 Units/L (15-37); BLOOD UREA NITROGEN 7 mg/dL (7-18); CALCIUM 8.4 mg/dL (8.5-10.1); CARBON DIOXIDE 27.5 mmol/L (21-32); CHLORIDE 106 mmol/L (98-107); COR CA(FOR HYPOALB) 9.4 mg/dL (8.5-10.1); CREATININE 0.46 mg/dL (0.70-1.30); GLUCOSE 92 mg/dL (65-99); MAGNESIUM 2.2 mg/dL (2.0-2.9); POTASSIUM 3.3 mmol/L (3.5-5.1); SODIUM 141 mmol/L (136-145); TOTAL PROTEIN 5.9 g/dL (6.4-8.2); eGFR NON BLACK RACES > 60 (>60)
[2024-06-30] MEDS ORDERED: CONSULT PHARMACY - POTASSIUM & MAGNESIUM XX SCH (08:00)
[2024-06-30] MEDS ORDERED: LEXAPRO ONE (10:23)
[2024-06-30] MEDS: SOLU-Medrol 40 MG VIAL IVP ONE (10:37)
[2024-06-30] MEDS: NS + KCL 20 MEQ/L 1,000 ML with MAGNESIUM SULFATE 50% INJ VIAL 1 G IV SCH (10:37)
[2024-06-30] MEDS: NIZORAL SHAMPOO EXT SCH (10:39)
[2024-06-30] MEDS: TYLENOL 500 MG TAB EXTRA STRENGTH PO PRN (21:16)
[2024-07-01 04:59] LABS: BASOPHILS # (AUTO) 0.2 X10^3/uL (0.0-0.1); BASOPHILS % (AUTO) 1.3 % (0.2-1.0); EOSINOPHILS % (AUTO) 0.3 % (0.9-2.9); HEMATOCRIT 41.9 % (42.0-54.0); HEMOGLOBIN 14.1 g/dL (13.5-18.0); LYMPHOCYTES # (AUTO) 2.5 X10^3/uL (1.3-2.9); LYMPHOCYTES % (AUTO) 20.8 % (21.0-51.0); MEAN CORPUSCULAR HEMOGLOBIN 29.5 pg (27.0-34.0); MEAN CORPUSCULAR HGB CONC 33.6 g/dL (33.0-35.0); MEAN CORPUSCULAR VOLUME 87.7 fL (80.0-100.0); MONOCYTES % (AUTO) 8.3 % (0.0-13.0); NEUTROPHILS # (AUTO) 8.2 x10^3/uL (2.2-4.8); NEUTROPHILS % (AUTO) 69.3 % (42.0-75.0); PLATELET COUNT 269 X10^3/uL (150.0-450.0); RED BLOOD COUNT 4.78 X10^6/uL (4.7-6.0); RED CELL DISTRIBUTION WIDTH 15.1 % (11.6-16.5); WHITE BLOOD COUNT 11.8 X10^3/uL (3.6-10.0)
[2024-07-01 05:07] LABS: ALANINE AMINOTRANSFERASE 7 Units/L (12-78); ALKALINE PHOSPHATASE 179 Units/L (46-116); ASPARTATE AMINO TRANSFERASE 14 Units/L (15-37); BLOOD UREA NITROGEN 7 mg/dL (7-18); CALCIUM 8.9 mg/dL (8.5-10.1); CARBON DIOXIDE 26.5 mmol/L (21-32); CHLORIDE 106 mmol/L (98-107); COR CA(FOR HYPOALB) 9.7 mg/dL (8.5-10.1); CREATININE 0.47 mg/dL (0.70-1.30); GLUCOSE 91 mg/dL (65-99); POTASSIUM 3.8 mmol/L (3.5-5.1); SODIUM 141 mmol/L (136-145); TOTAL PROTEIN 6.5 g/dL (6.4-8.2); eGFR NON BLACK RACES > 60 (>60)
[2024-07-01] MEDS ORDERED: LEXAPRO ONE (07:39)
[2024-07-01 11:44] VITALS: BP 106/58; PULSE 67; RESP 20; TEMP 97.1; O2SAT 96
== END 2024-07-01 13:30 ==
LOC: MED/SURG
PROVIDERS: ADMIT Internal Medicine; ATTEND Internal Medicine
DX: K92.1 Melena; R26.89 Other abnormalities of gait and mobility; N39.0 Urinary tract infection, site not specified; R53.1 Weakness; L89.322 Pressure ulcer of left buttock, stage 2; E86.0 Dehydration; Z16.29 Resistance to other single specified antibiotic; L89.312 Pressure ulcer of right buttock, stage 2; B96.4 Proteus (mirabilis) (morganii) as the cause of diseases classified elsewhere; E83.42 Hypomagnesemia; Z16.23 Resistance to quinolones and fluoroquinolones; B96.29 Other Escherichia coli [E. coli] as the cause of diseases classified elsewhere; G20.A1 Parkinson's disease without dyskinesia, without mention of fluctuations; Z16.12 Extended spectrum beta lactamase (ESBL) resistance; Z91.81 History of falling; M15.8 Other polyosteoarthritis; K21.9 Gastro-esophageal reflux disease without esophagitis; M51.369 Other intervertebral disc degeneration, lumbar region without mention of lumbar back pain or lower extremity pain; M50.30 Other cervical disc degeneration, unspecified cervical region; R62.7 Adult failure to thrive

== ENCOUNTER 2024-11-25 11:53 | Observation (INO) ==
--- NOTE | 2024-11-25 12:28 | DR.ABDMALE ---
HPI Time seen Time Seen by Provider: 11/25/24 12:22 PCP Primary Care Physician: brayden lópez Complaint Chief Complaint Doctors Comments: 53 yo M, hx of parkinsons, c/o epi abd pain, chest pain, cough and chest heaviness since middle of the night. Has had multiple episodes of diarrhea the past 2 days. Denies other complaints. Chief Complaint:: Patient brought in via [facility] with c.o of mid epigastric pain that comes and goes since 0200 this morning heaviness/pressure feeling going straight into his back along with nausea and diarrhea. Denies any sob/dizziness. COVID-19 Coronavirus risk:travel/contact w/high risk person: No Has patient experienced Coronavirus symptoms: No Mode of arrival Mode of Arrival: EMS Timing Onset of Chief Complaint: 11/25/24 PMH PMH Past Medical History: Yes Past Medical History: Anxiety, Arthritis and Hypertension Past Medical History Comment: ventral hernia, colitis, parkinsons, a-fib, PE Past Surgical History: Yes Surgical History: Ortho Surgery, Thyroidectomy and Tonsillectomy Past Surgical History Comment: facial, hernia, left leg, neck Family History History of Family Medical Conditions: Yes Family Medical History: Cancer, [place], Coronary Artery Disease, Heart Failure and Hypertension Social History Does patient currently use any type of tobacco product: No Have you used tobacco products in the last 12 months: No Type of Tobacco Use: None Does any household member use tobacco: No Alcohol Use: None Do you use any recreational Drugs:: No Lives With: Family Lives Where: Home Travel Risk Coronavirus risk:travel/contact w/high risk person: No Has patient experienced Coronavirus symptoms: No Infectious screening In the last 2 months have you had wt loss of >10#?: NO Have you had fever, night sweats or hemotysis?: No Have you traveled outside the country in the last 6 months?: No Isolation: Standard ROS Review of Systems Constitutional: negative Fever Respiratoy: Moist Cough Cardiovascular: Chest Pain Gastrointestinal/Abdominal: Abdominal Pain, Diarrhea and Nausea; negative Vomiting All Other Systems: Reviewed and Negative PE Vital Signs Vital Signs: Temp Pulse Resp BP Pulse Ox O2 Del Method 11/25/24 14:15 84 24 95 11/25/24 14:00 84 25 H 94 L 11/25/24 13:45 83 25 H 95 11/25/24 13:33 88 97 11/25/24 13:15 80 25 H 95 11/25/24 13:00 87 22 95 11/25/24 13:00 129/72 11/25/24 12:45 85 27 H 94 L 11/25/24 12:30 84 28 H 95 11/25/24 12:30 126/75 11/25/24 12:15 85 25 H 95 11/25/24 12:06 97.8 F 86 20 127/77 94 L Room Air 11/25/24 12:02 86 24 95 11/25/24 12:00 127/77 11/25/24 11:57 128/81 General Limitations: No Limitations General Appearance: Alert and In No Apparent Distress Head Head Exam: Normal Inspection Eyes Eye exam: Normal Appearance ENT ENT Exam: Normal Exam Neck Neck Exam: Normal Inspection Chest Chest Inspection: Normal Inspection Respiratory Respiratory Exam: Normal Lung Sounds Bilat Cardiovascular Cardiovascular Exam: Regular Rate and Normal Rhythm Abdominal Exam Abdominal Exam: Normal Inspection and Normal Bowel Sounds Rectal Rectal Exam: Deferred Back Back Exam: Normal Inspection Extremeties Extremities Exam: Normal Inspection Exam: Male: Deferred Neurologic Neurological Exam: Alert and Oriented X3 Psychiatric Psychiatric Exam: Normal Affect and Normal Mood Skin Skin Exam: Warm, Dry, Intact and Normal Color ROR Labs Reviewed Laboratory Results Reviewed?: Yes 11/25/24 12:35 11/25/24 12:35 Laboratory: WBC 20.8 X10^3/uL (3.6-10.0) H 11/25/24 12:35 RBC 5.52 X10^6/uL (4.7-6.0) 11/25/24 12:35 Hgb 16.0 g/dL (13.5-18.0) 11/25/24 12:35 Hct 48.7 % (42.0-54.0) 11/25/24 12:35 MCV 88.2 fL (80.0-100.0) 11/25/24 12:35 MCH 29.0 pg (27.0-34.0) 11/25/24 12:35 MCHC 32.9 g/dL (33.0-35.0) L 11/25/24 12:35 RDW 17.0 % (11.6-16.5) H 11/25/24 12:35 Plt Count 231 X10^3/uL (150.0-450.0) 11/25/24 12:35 Plt Count Comment Adequate (ADEQUATE) 11/25/24 12:35 MPV 7.4 fL (7.4-11.0) 11/25/24 12:35 Neut % (Auto) 92.4 % (42.0-75.0) H 11/25/24 12:35 Lymph % (Auto) 4.7 % (21.0-51.0) L 11/25/24 12:35 [place] % (Auto) 2.3 % (0.0-13.0) 11/25/24 12:35 Eos % (Auto) 0.1 % (0.9-2.9) L 11/25/24 12:35 Baso % (Auto) 0.5 % (0.2-1.0) 11/25/24 12:35 Neut # (Auto) 19.2 x10^3/uL (2.2-4.8) H 11/25/24 12:35 Lymph # (Auto) 1.0 X10^3/uL (1.3-2.9) L 11/25/24 12:35 [place] # (Auto) 0.5 x10^3/uL (0.3-0.8) 11/25/24 12:35 Eos # (Auto) 0.0 x10^3/uL (0.0-0.2) 11/25/24 12:35 Baso # (Auto) 0.1 X10^3/uL (0.0-0.1) 11/25/24 12:35 Absolute Nucleated RBC 0.1 /100WBC 11/25/24 12:35 Total Counted 100 11/25/24 12:35 Neutrophils % (Manual) 79 % (39-76) H 11/25/24 12:35 Band Neutrophils % 7 % (0-10) 11/25/24 12:35 Lymphocytes % (Manual) 12 % (13-43) L 11/25/24 12:35 Monocytes % (Manual) 2 % (4-9) L 11/25/24 12:35 Plt Morphology Comment Normal (NORMAL) 11/25/24 12:35 RBC Morphology Abnormal (NORMAL) 11/25/24 12:35 Anisocytosis Slight A 11/25/24 12:35 PT 13.6 SECONDS (11.8-14.3) 11/25/24 12:35 INR Target Range - 11/25/24 12:35 INR 1.03 (0.8-1.3) 11/25/24 12:35 APTT 20.7 SECONDS (22.9-36.5) L 11/25/24 12:35 PTT Comment - 11/25/24 12:35 Sodium 144 mmol/L (136-145) 11/25/24 12:35 Corrected Sodium 145 mmol/L (136-145) 11/25/24 12:35 Potassium 3.3 mmol/L (3.5-5.1) L 11/25/24 12:35 Chloride 108 mmol/L (98-107) H 11/25/24 12:35 Carbon Dioxide 27.3 mmol/L (21-32) 11/25/24 12:35 BUN 16 mg/dL (7-18) 11/25/24 12:35 Creatinine 0.43 mg/dL (0.70-1.30) L 11/25/24 12:35 Est GFR (MDRD) Af Amer > 60 (>60) 11/25/24 12:35 Est GFR (MDRD) Non-Af > 60 (>60) 11/25/24 12:35 Glucose 123 mg/dL (65-99) H 11/25/24 12:35 Lactic Acid 0.8 mmol/L (0.4-2.0) 11/25/24 12:41 Calcium 9.1 mg/dL (8.5-10.1) 11/25/24 12:35 Corrected Calcium TNP 11/25/24 12:35 Magnesium 1.9 mg/dL (2.0-2.9) L 11/25/24 12:35 Total Bilirubin 0.60 mg/dL (0.2-1.0) 11/25/24 12:35 AST 9 Units/L (15-37) L 11/25/24 12:35 ALT 10 Units/L (12-78) L 11/25/24 12:35 Alkaline Phosphatase 123 Units/L (46-116) H 11/25/24 12:35 Creatine Kinase 16 Units/L (39-308) L 11/25/24 12:35 Troponin I High Sens 7.3 ng/L (4.0-60.0) 11/25/24 12:35 Total Protein 7.6 g/dL (6.4-8.2) 11/25/24 12:35 Albumin 3.9 g/dL (3.4-5.0) 11/25/24 12:35 Globulin 3.7 g/dL (2.5-4.5) 11/25/24 12:35 Albumin/Globulin Ratio 1.1 Ratio (1.1-2.1) 11/25/24 12:35 Opioid Opioid Risk Tool Age (Deng box if 16-45): No History of Preadolescent Sexual Abuse: No Total: 0 Total Score Risk Category: Low Risk Copyright: [facility] predicting aberrant behaviors Discharge Plan Diagnosis Discharge Problem: CAP (community acquired pneumonia), Leukocytosis, Diarrhea, Parkinson's disease Discharge Plan Patient Disposition: ADMITTED INPATIENT Condition: Stable Prescriptions: No Action pantoprazole 40 mg tablet,delayed release (DR/EC) 40 mg PO QDAY cyanocobalamin (vitamin B-12) 1,000 mcg/mL solution 1,000 mcg subcut WEEKLY Patient Comments: [NO ORIGINAL SIG] Rx Instructions: Inject subcutaneously 1ml once weekly carbidopa-levodopa 25-250 mg tablet 1 tab PO Q4H Rx Instructions: GIVE 1 TAB 5 TIMES A DAY meloxicam 15 mg tablet 15 mg PO QDAY amantadine HCl 100 mg capsule 100 mg PO BID escitalopram oxalate 10 mg tablet 10 mg PO QDAY carbidopa-levodopa 10-100 mg tablet 1 tab PO TID oxycodone-acetaminophen 5-325 mg tablet 1 tab PO TID PRN baclofen 10 mg tablet 10 mg PO TID Health Concerns: Post Hospitalization: new medications and changes needed to prevent readmission or further decline. Pt educated and given instructions on all concerns. Plan of Treatment: Continue with present treatment and follow up plan. Pt is to keep follow up appointment as instructed and take medications as ordered. Orders to Discharge Patient Discharge Orders: Transfer (Routine); Ordered 11/25/24 Ordered By: Jair Li Follow ups/Referrals Follow ups/Referrals: RAYSA CUELLAR [Primary Care Provider, MEDICAL] - 3 days Instructions Stand Alone Forms: Find Help Web Site, Post Hospital Follow Up Care Print Language: POLISH
--- NOTE | 2024-11-25 12:30 | EKG ---
Test Reason : Chest Pain Blood Pressure : */* mmHG Vent. Rate : 84 BPM Atrial Rate : 84 BPM P-R Int : 144 ms QRS Dur : 102 ms QT Int : 358 ms P-R-T Axes : 45 20 -84 degrees QTc Int : 423 ms Normal sinus rhythm Left ventricular hypertrophy with repolarization abnormality ( R in aVL ) Nonspecific ST and T wave abnormality Abnormal ECG When compared with ECG of 22-JUL-2024 08:56, Non-specific change in ST segment in Inferior leads T wave inversion now evident in Inferior leads T wave inversion now evident in Lateral leads Confirmed by Mika Suarez MD ([id number]) on 11/26/2024 9:01:10 AM Referred By: Confirmed By: Mika Suarez MD
[2024-11-25 12:49] LABS: MEAN PLATELET VOLUME 7.4 fL (7.4-11.0); RED CELL DISTRIBUTION WIDTH 17.0 % (11.6-16.5)
[2024-11-25 12:56] LABS: INR 1.03 (0.8-1.3)
[2024-11-25 13:01] LABS: BAND NEUTROPHILS % 7 % (0-10); PLATELET MORPHOLOGY COMMENT NORMAL (NORMAL)
[2024-11-25 13:03] LABS: COR NA(FOR HYPERGLY) 145 mmol/L (136-145); CREATININE 0.43 mg/dL (0.70-1.30); eGFR NON BLACK RACES > 60 (>60)
--- NOTE | 2024-11-25 15:14 | CT ---
EXAMINATION: ABDCMEN/PELVIS WITH CON HISTORY: Gen abd pain, diarrhea; . COMPARISON: CT abdomen and pelvis 08/08/2024 TECHNIQUE: Postcontrast CT abdomen and pelvis was performed.. Reformatted images were obtained as well. Lack of oral contrast limits diagnostic sensitivity The above CT scan was done with automated exposure control and the mA and kV was adjusted to obtain quality images according to patient size. FINDINGS: Lung bases: No acute findings. Liver: The dome of the liver is not included on the study. As visualized no acute findings GB/Biliary: Contracted gallbladder. No gallstones or dilated ducts Spleen: Normal size and density Pancreas: No acute findings. No pseudocyst or dilated duct Adrenal Glands: No mass Kidneys: No obstructing stone, hydronephrosis or solid lesion. Punctate nonobstructing stones in the kidneys. Abdominal aorta: Tapers and enhances normally. Mesenteric vessels are patent. Retroperitoneum: No pathologically enlarged lymph nodes. Bowel: Umbilical hernia containing fat. Distended fluid-filled stomach may represent technical factors or gastroparesis. No other thickened or dilated loops of bowel, free fluid, free air, pneumatosis or abscess. Unremarkable appendix. Moderate stool. No CT evidence for appendicitis, diverticulitis or obstruction. Bladder/: Ureters and bladder unremarkable. There are stones in the left side of the bladder. Prostate and seminal vesicles are unremarkable Osseous: Degenerative changes in the thoracolumbar spine. No acute findings or bony lesions. IMPRESSION: No acute intra-abdominal or intrapelvic pelvic process. Fluid-filled distended stomach can be seen with technical factors or gastroparesis Constipation. No CT evidence for appendicitis, diverticulitis or obstruction. THIS IS AN ELECTRONICALLY VERIFIED FINAL REPORT 11/25/2024 3:11 PM - Electronically signed by Cj Maldonado MD
[2024-11-25] MEDS: ROCEPHIN VIAL 1 GRAM IVP ONE (16:11)
[2024-11-25] MEDS: ZITHROMAX INJ 500 MG VIAL 500 MG in D5W 250 ML IV 250 ML IV SCH (16:13)
[2024-11-25] MEDS: ROCEPHIN VIAL 1 GRAM 1 G in NS 100 ML IV 100 ML IV ONE (16:38)
[2024-11-25] MEDS: OMNIPAQUE 350 mg/mL 100 mL BTL 100 ML ONE (17:03)
[2024-11-25] MEDS: ROCEPHIN VIAL 1 GRAM ONE (17:03)
--- NOTE | 2024-11-25 17:37 | RAD ---
EXAM: CHEST, 1 VIEW HISTORY: Shortness of Breath; COMPARISON: Prior study or studies were utilized for comparison during interpretation with the most relevant dated 07/22/2024 TECHNIQUE: CHEST, 1 VIEW FINDINGS: Chest: Lines and tubes: Cardiac leads overlie the chest. Mediastinum: Borderline cardiomegaly. Pulmonary vessels: Low lung volumes contributes to increased conspicuity of pulmonary vascular markings. Lung watson: No suspicious airspace opacity. Pleura: No effusion. No pneumothorax. Bones and soft tissues: No acute osseous or soft tissue abnormality. IMPRESSION: 1. Findings suggest increased volume status THIS IS AN ELECTRONICALLY VERIFIED FINAL REPORT 11/25/2024 5:34 PM - Electronically signed by Barrie Sahni MD
[2024-11-25] MEDS: KLOR-CON PO PRN (17:58)
[2024-11-25] MEDS: MAG-OX TAB PO SCH (17:58)
[2024-11-25] MEDS ORDERED: ZOFRAN TAB 4 MG PO PRN (18:07)
[2024-11-25] MEDS: NS 1,000 ML IV 1,000 ML IV SCH (18:21)
[2024-11-25 18:27] LABS: APPEARANCE,URINE CLEAR (CLEAR); BLOOD/HEMOGLOBIN,URINE 1+ (NEGATIVE); LEUKOCYTE ESTERASE ,URINE 1+ (NEGATIVE); NITRITES,URINE POSITIVE (NEGATIVE)
[2024-11-25 18:35] LABS: SQUAMOUS EPITHELIAL CELL,UR FEW /HPF (NEGATIVE)
[2024-11-25] MEDS: NS 250 ML IV 250 ML IV ONE (19:48)
[2024-11-25] MEDS: MAGNESIUM SULFATE 1 GRAM/100 mL PREMIX 1 G/100 ML BAG IV ONE (19:49)
[2024-11-25] MEDS ORDERED: KLOR-CON PO ONE (20:00)
[2024-11-25] MEDS ORDERED: MAG-OX TAB PO ONE (20:00)
[2024-11-25] MEDS: DUONEB 0.5 MG/3 MG (3 mL) NEB SCH (20:54)
[2024-11-25] MEDS: PULMICORT NEB TX 0.5 MG NEB SCH (20:54)
[2024-11-25] MEDS: SINEMET (PLAIN) 25/250 MG PO SCH (21:19)
[2024-11-25] MEDS: SINEMET (PLAIN) 10/100 MG PO SCH (21:19)
[2024-11-25] MEDS: LIORESAL PO SCH (21:19)
[2024-11-25] MEDS: K-RIDER 10 MEQ/100 ML WATER 10 MEQ/100 ML BAG IV ONE (21:19)
[2024-11-25] MEDS: AMANTADINE HCL PO SCH (21:42)
[2024-11-26] MEDS: NORCO 5/325 MG TAB PO PRN (00:07)
[2024-11-26 06:02] LABS: MEAN PLATELET VOLUME 7.7 fL (7.4-11.0); RED CELL DISTRIBUTION WIDTH 17.2 % (11.6-16.5)
[2024-11-26 06:21] LABS: COR NA(FOR HYPERGLY) 143 mmol/L (136-145); CREATININE 0.49 mg/dL (0.70-1.30); eGFR NON BLACK RACES > 60 (>60)
[2024-11-26 06:26] LABS: BAND NEUTROPHILS % 3 % (0-10)
[2024-11-26 06:27] LABS: PLATELET MORPHOLOGY COMMENT NORMAL (NORMAL)
[2024-11-26] MEDS ORDERED: CONSULT PHARMACY - POTASSIUM & MAGNESIUM XX SCH (07:00)
[2024-11-26] MEDS: CONSULT PHARMACY - POTASSIUM & MAGNESIUM XX SCH (07:35)
[2024-11-26] MEDS ORDERED: LEXAPRO ONE (08:47)
[2024-11-26] MEDS: MOBIC TAB 15 MG PO SCH (09:02)
[2024-11-26] MEDS: K-DUR TAB 20 MEQ PO ONE (09:02)
[2024-11-26] MEDS: PROTONIX TAB 40 MG PO SCH (09:02)
[2024-11-26] MEDS: FLAGYL TAB 500 MG PO SCH (09:02)
[2024-11-26] MEDS: LEXAPRO PO SCH (09:02)
[2024-11-26] MEDS: LASIX IVP ONE (09:02)
[2024-11-26] MEDS: K-DUR TAB 20 MEQ PO SCH (09:03)
[2024-11-26] MEDS: ROCEPHIN VIAL 1 GRAM 1 G in NS 100 ML IV 100 ML IV SCH (09:03)
[2024-11-26] MEDS ORDERED: PHARMACY CONSULT XX SCH (10:00)
[2024-11-26] MEDS: LOVENOX INJ 40 MG SYR SC SCH (10:05)
--- NOTE | 2024-11-26 13:35 | DR.H&P ---
H&P History & Physical for Day of: H&P Date: 11/25/24 Chief Complaint Chief Complaint: FALL, WEAKNESS, DIARRHEA History of Present Illness History of Present Illness: PT IS 53 WM, ER ADMISSION WITH CO FALL WITH DIFFUSE WEAKNESS AND DIARRHEA. 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 PT CO INCREASED WEAKNESS. PT ADMITTED FOR TREATMENT AND EVALUATION. Past Medical History Past Medical History: Anxiety, Arthritis and Hypertension Additional Medical History: PARKINSON Past Surgical History Surgical History: Ortho Surgery, Tonsillectomy and Other Family History Family Medical History: Cancer, [place] and Hypertension Social History Does patient currently use any type of tobacco product: No Have you used tobacco products in the last 12 months: No Type of Tobacco Use: None Does any household member use tobacco: No Alcohol Use: None Drug Use: None Medications Home Medications: Home Medications Medication Instructions Recorded Confirmed Type pantoprazole 40 mg tablet,delayed 40 mg PO QDAY 11/25/24 History release cyanocobalamin (vitamin B-12) 1,000 mcg subcut WEEKLY 06/25/24 11/25/24 History 1,000 mcg/mL injection solution amantadine HCl 100 mg capsule 100 mg PO BID 08/08/24 0 11/25/24 History carbidopa 25 mg-levodopa 250 mg 1 tab PO Q4H 08/08/24 11/25/24 History tablet escitalopram oxalate 10 mg tablet 10 mg PO QDAY 11/25/24 History meloxicam 15 mg tablet 15 mg PO QDAY 08/08/2411/25 History baclofen 10 mg tablet 10 mg PO TID 08/09/24 History carbidopa 10 mg-levodopa 100 mg 1 tab PO TID 08/09/24 11/25/24 History tablet oxycodone-acetaminophen 5 mg-325 1 tab PO TID PRN 07/1511/25/24 History mg tablet Allergies Allergies Allergy/AdvReac Type Severity Reaction Status Date / Time No Known Drug Allergies Allergy Verified 11/25/24 12:06 Labs 11/26/24 05:40 11/26/24 05:40 Labs: 11/25/24 17:54 Urine,Clean Catch Urine Culture - Preliminary Laboratory WBC 17.8 X10^3/uL (3.6-10.0) H 11/26/24 05:40 RBC 5.06 X10^6/uL (4.7-6.0) 11/26/24 05:40 Hgb 15.1 g/dL (13.5-18.0) 11/26/24 05:40 Hct 44.3 % (42.0-54.0) 11/26/24 05:40 MCV 87.6 fL (80.0-100.0) 11/26/24 05:40 MCH 29.9 pg (27.0-34.0) 11/26/24 05:40 MCHC 34.2 g/dL (33.0-35.0) 11/26/24 05:40 RDW 17.2 % (11.6-16.5) H 11/26/24 05:40 Plt Count 246 X10^3/uL (150.0-450.0) 11/26/24 05:40 Plt Count Comment Adequate (ADEQUATE) 11/26/24 05:40 MPV 7.7 fL (7.4-11.0) 11/26/24 05:40 Neut % (Auto) 89.2 % (42.0-75.0) H 11/26/24 05:40 Lymph % (Auto) 7.0 % (21.0-51.0) L 11/26/24 05:40 [place] % (Auto) 3.5 % (0.0-13.0) 11/26/24 05:40 Eos % (Auto) 0.0 % (0.9-2.9) L 11/26/24 05:40 Baso % (Auto) 0.3 % (0.2-1.0) 11/26/24 05:40 Neut # (Auto) 15.9 x10^3/uL (2.2-4.8) H 11/26/24 05:40 Lymph # (Auto) 1.2 X10^3/uL (1.3-2.9) L 11/26/24 05:40 [place] # (Auto) 0.6 x10^3/uL (0.3-0.8) 11/26/24 05:40 Eos # (Auto) 0.0 x10^3/uL (0.0-0.2) 11/26/24 05:40 Baso # (Auto) 0.1 X10^3/uL (0.0-0.1) 11/26/24 05:40 Absolute Nucleated RBC 0.0 /100WBC 11/26/24 05:40 Total Counted 100 11/26/24 05:40 Neutrophils % (Manual) 84 % (39-76) H 11/26/24 05:40 Band Neutrophils % 3 % (0-10) 11/26/24 05:40 Lymphocytes % (Manual) 11 % (13-43) L 11/26/24 05:40 Monocytes % (Manual) 2 % (4-9) L 11/26/24 05:40 Plt Morphology Comment Normal (NORMAL) 11/26/24 05:40 RBC Morphology Abnormal (NORMAL) 11/26/24 05:40 Anisocytosis Slight A 11/26/24 05:40 PT 13.6 SECONDS (11.8-14.3) 11/25/24 12:35 INR Target Range - 11/25/24 12:35 INR 1.03 (0.8-1.3) 11/25/24 12:35 APTT 20.7 SECONDS (22.9-36.5) L 11/25/24 12:35 PTT Comment - 11/25/24 12:35 Sodium 143 mmol/L (136-145) 11/26/24 05:40 Corrected Sodium 143 mmol/L (136-145) 11/26/24 05:40 Potassium 3.4 mmol/L (3.5-5.1) L 11/26/24 05:40 Chloride 107 mmol/L (98-107) 11/26/24 05:40 Carbon Dioxide 27.7 mmol/L (21-32) 11/26/24 05:40 BUN 17 mg/dL (7-18) 11/26/24 05:40 Creatinine 0.49 mg/dL (0.70-1.30) L 11/26/24 05:40 Est GFR (MDRD) Af Amer > 60 (>60) 11/26/24 05:40 Est GFR (MDRD) Non-Af > 60 (>60) 11/26/24 05:40 Glucose 114 mg/dL (65-99) H 11/26/24 05:40 Lactic Acid 0.8 mmol/L (0.4-2.0) 11/25/24 12:41 Calcium 8.5 mg/dL (8.5-10.1) 11/26/24 05:40 Corrected Calcium TNP 11/26/24 05:40 Magnesium 2.3 mg/dL (2.0-2.9) 11/26/24 05:40 Total Bilirubin 0.60 mg/dL (0.2-1.0) 11/26/24 05:40 AST 12 Units/L (15-37) L 11/26/24 05:40 ALT 13 Units/L (12-78) 11/26/24 05:40 Alkaline Phosphatase 108 Units/L (46-116) 11/26/24 05:40 Creatine Kinase 16 Units/L (39-308) L 11/25/24 12:35 Troponin I High Sens 7.3 ng/L (4.0-60.0) 11/25/24 12:35 Total Protein 6.9 g/dL (6.4-8.2) 11/26/24 05:40 Albumin 3.5 g/dL (3.4-5.0) 11/26/24 05:40 Globulin 3.4 g/dL (2.5-4.5) 11/26/24 05:40 Albumin/Globulin Ratio 1.0 Ratio (1.1-2.1) L 11/26/24 05:40 Amylase 27 Units/L (25-115) 11/26/24 05:40 Lipase 23 Units/L (16-77) 11/26/24 05:40 Specimen Type Clean catch urine 11/25/24 17:54 Urine Color Yellow (YELLOW) 11/25/24 17:54 Urine Appearance Clear (CLEAR) 11/25/24 17:54 Urine pH 6.0 (5.0 - 8.0) 11/25/24 17:54 Ur Specific [place] 1.010 (1.000-1.030) 11/25/24 17:54 Urine Protein 2+ (NEGATIVE) 11/25/24 17:54 Urine Glucose (UA) Negative (NEGATIVE) 11/25/24 17:54 Urine Ketones 2+ (NEGATIVE) 11/25/24 17:54 Urine Blood 1+ (NEGATIVE) 11/25/24 17:54 Urine Nitrite Positive (NEGATIVE) 11/25/24 17:54 Urine Bilirubin Negative (NEGATIVE) 11/25/24 17:54 Urine Urobilinogen Normal (NORMAL) 11/25/24 17:54 Ur Leukocyte Esterase 1+ (NEGATIVE) 11/25/24 17:54 Urine RBC 5-10 /HPF (0-3) A 11/25/24 17:54 Urine WBC 10-20 /HPF (0-5) A 11/25/24 17:54 Ur Squamous Epith Cells Few /HPF (NEGATIVE) 11/25/24 17:54 Amorphous Sediment 1+ /HPF (NEGATIVE) 11/25/24 17:54 Urine Bacteria Trace /HPF (NEGATIVE) 11/25/24 17:54 Ur Culture Indicated? Yes/culture set up 11/25/24 17:54 Review of Systems Constitutional: Weakness Eyes: No Symptoms Reported Respiratory: Cough Cardiovascular: No Symptoms Reported Gastrointestinal: Diarrhea Genitourinary: Incontinence Musculoskeletal: Back Pain and Leg Pain Skin: Wound Neurological: Weakness Physical Exam Vital Signs: Vital Signs Temperature 98.2 F Temperature 98.2 F Pulse Rate [Left Radial] 94 Pulse Rate [Left Radial] 73 Pulse Rate 91 Respiratory Rate 16 Respiratory Rate 17 Blood Pressure [Left Arm] 111/59 Blood Pressure [Left Arm] 136/70 O2 Sat by Pulse Oximetry 96 O2 Sat by Pulse Oximetry 93 O2 Sat by Pulse Oximetry 97 Oriented: Normal Eyes: Normal Nose: Normal Throat: Normal Respiratory: Wheezes Throughout Cardiovascular: Normal Auscultation: Bowel Sounds: Increased Palpation: Normal Tenderness: Diffuse Skin: Decreased Turgur Musculoskeletal: Back:Lumbar, Motor Deficit and Sensory Deficit Psychiatric: Anxiety Mood Description: Anxious Affect: Anxious Speech Pattern: Clear and Appropriate Assessment/Plan (1) UTI (urinary tract infection): Qualifiers: Hematuria presence: with hematuria Urinary tract infection type: site unspecified Qualified Code(s): N39.0 - Urinary tract infection, site not specified; R31.9 - Hematuria, unspecified Status: Acute Plan: ADMIT, UC ON ADMISSION CT ON ADMISSION IN ER IV ATBX, RESP CONSULT PT CONSULT, WOUND CARE BP CONTROL, VERIFY HOME MEDICATIONS (2) Diarrhea: Status: Acute (3) Parkinson's disease: Status: Acute (4) Fall: Status: Acute (5) Decubitus ulcer of left buttock: Qualifiers: Pressure injury stage: unspecified pressure injury stage Qualified Code(s): L89.329 - Pressure ulcer of left buttock, unspecified stage Status: Acute (6) GERD (gastroesophageal reflux disease): Qualifiers: Esophagitis presence: esophagitis presence not specified Qualified Code(s): K21.9 - Gastro-esophageal reflux disease without esophagitis Status: Chronic (7) HTN (hypertension): Qualifiers: Hypertension type: primary hypertension Qualified Code(s): I10 - Essential (primary) hypertension Status: Chronic
[2024-11-26] MEDS: TYLENOL 325 MG TAB PO PRN (15:20)
[2024-11-26] MEDS: ZOFRAN INJ 4 MG VIAL IVP PRN (15:20)
--- NOTE | 2024-11-26 16:23 | RAD ---
EXAM: CHEST, 1 VIEW HISTORY: PNEUMONIA ; HTN, VENTRAL HERNIA, PARKINSONS, AFIB, PE SX: ORTHO, THYROIDECTOMY, TONSILLECTOMY, HERNIA, LEFT LEG, NECK COMPARISON: 11/25/2024 TECHNIQUE: AP portable FINDINGS: Stable cardiac silhouette. Low lung volumes. Decreased perihilar opacities. No large pleural effusion or visible pneumothorax. IMPRESSION: Low lung volumes. Decreased perihilar opacities. THIS IS AN ELECTRONICALLY VERIFIED FINAL REPORT 11/26/2024 4:19 PM - Electronically signed by Jaswinder Joaquin MD
[2024-11-26] MEDS: PERCOCET TAB 5/325 MG PO PRN (21:19)
[2024-11-27 01:25] LABS: CRYPTOSPORIDIUM PARVUM ANTIGEN NEGATIVE (NEGATIVE); GIARDIA LAMBLIA ANTIGEN NEGATIVE (NEGATIVE)
[2024-11-27 05:53] LABS: MEAN PLATELET VOLUME 8.1 fL (7.4-11.0); RED CELL DISTRIBUTION WIDTH 17.5 % (11.6-16.5)
[2024-11-27 06:16] LABS: COR CA(FOR HYPOALB) 8.7 mg/dL (8.5-10.1); CREATININE 0.49 mg/dL (0.70-1.30); eGFR NON BLACK RACES > 60 (>60)
[2024-11-27] MEDS ORDERED: CONSULT PHARMACY - POTASSIUM & MAGNESIUM XX SCH (07:00)
[2024-11-27] MEDS ORDERED: LEXAPRO ONE (09:27)
[2024-11-27] MEDS: K-DUR TAB 20 MEQ PO ONE (09:39)
[2024-11-27] MEDS: PROTONIX INJ 40 MG VIAL IVP SCH (09:40)
[2024-11-27] MEDS: ULTRAM PO PRN (11:53)
--- NOTE | 2024-11-27 12:22 | RAD ---
EXAM: CHEST, 1 VIEW HISTORY: CAP; HTN, VENTRAL HERNIA, PARKINSONS, AFIB, PE SX: ORTHO, THYROIDECTOMY, TONSILLECTOMY, HERNIA, LEFT LEG, NECK COMPARISON: 11/26/2024 TECHNIQUE: AP portable FINDINGS: Stable cardiac silhouette. Low lung volumes with elevated right hemidiaphragm. No new areas of consolidation. No large pleural effusion or visible pneumothorax. IMPRESSION: Stable exam. Low lung volumes and bibasilar atelectasis. THIS IS AN ELECTRONICALLY VERIFIED FINAL REPORT 11/27/2024 12:18 PM - Electronically signed by Jaswinder Joaquin MD
[2024-11-27] MEDS: CIPRO IV 400 MG PREMIX* 400 MG/200 ML IV.SOLN. IV SCH (13:33)
[2024-11-27 17:23] VITALS: BMI 29.1
[2024-11-27] MEDS: MORPHINE SULFATE INJ 2 MG INJ IVP PRN (21:09)
[2024-11-28 05:25] LABS: MEAN PLATELET VOLUME 7.6 fL (7.4-11.0); RED CELL DISTRIBUTION WIDTH 16.7 % (11.6-16.5)
[2024-11-28 05:37] LABS: COR CA(FOR HYPOALB) 9.0 mg/dL (8.5-10.1); CREATININE 0.31 mg/dL (0.70-1.30); eGFR NON BLACK RACES > 60 (>60)
[2024-11-28] MEDS ORDERED: CONSULT PHARMACY - POTASSIUM & MAGNESIUM XX SCH (07:00)
[2024-11-28 08:25] VITALS: RESP 19; O2SAT 96
[2024-11-28] MEDS: K-DUR TAB 20 MEQ PO SCH (08:48)
[2024-11-28] MEDS: MAG-OX TAB PO SCH (08:48)
[2024-11-28] MEDS: LEXAPRO ONE (11:41)
[2024-11-28 14:20] VITALS: BP 121/76; PULSE 70; TEMP 97.6
== END 2024-11-28 14:15 | disposition home or self-care (01) ==
LOC: ER 11:53 → INTOOBSV 16:28 → MED/SURG 16:34
PROVIDERS: ADMIT Internal Medicine; ATTEND Internal Medicine
DX: R73.09 Other abnormal glucose; R19.7 Diarrhea, unspecified; R26.89 Other abnormalities of gait and mobility; F41.8 Other specified anxiety disorders; Z91.81 History of falling; I10 Essential (primary) hypertension; R06.02 Shortness of breath; R94.31 Abnormal electrocardiogram [ECG] [EKG]; R62.7 Adult failure to thrive; N39.0 Urinary tract infection, site not specified; Z74.01 Bed confinement status; J18.8 Other pneumonia, unspecified organism; R53.1 Weakness; Z16.12 Extended spectrum beta lactamase (ESBL) resistance; E83.51 Hypocalcemia; R10.13 Epigastric pain; G20.A1 Parkinson's disease without dyskinesia, without mention of fluctuations; L89.153 Pressure ulcer of sacral region, stage 3; K29.00 Acute gastritis without bleeding; R79.1 Abnormal coagulation profile; R31.9 Hematuria, unspecified; Z66 Do not resuscitate; E87.6 Hypokalemia; E83.42 Hypomagnesemia; K21.9 Gastro-esophageal reflux disease without esophagitis; A04.72 Enterocolitis due to Clostridium difficile, not specified as recurrent; B96.29 Other Escherichia coli [E. coli] as the cause of diseases classified elsewhere